=== PATIENT | female | born 1945 | race Caucasian/White ===

== ENCOUNTER 2016-09-16 12:48 | Inpatient (IN) | payer OTHER ==
[~2016-09-16] VITALS: Ht 160 cm; Wt 99.9 kg
[2016-09-16] VITALS (7 sets, daily range): BP systolic 83–145; BP diastolic 59–80
[~2016-09-16 12:48] MED LIST: ACET-654 PO; ALBU83IN INH; AMLO10TA2 PO; ASPI1TAB PO; ATOR1TAB19 PO; BREO1INH INH; BUSP10TA PO; CARV3.12 PO; CARV6.25 PO; CLOTR1CR TOP; FOLI1TAB2 PO; HYDR-3713 PO; HYDR25TAB PO; INCR1INH INH; LORA-376 PO; LOSA100T36 PO; MAG400TA PO; METF1000 PO; NYST10PW TOP; PANT40TA2 PO; PRED10TA PO; SERT-138 PO; SPIR25TA2 PO; VITA100066 PO; VITMTA PO
[2016-09-16] MEDS ORDERED: GLUCOSE 4 GM CHEW TABLET PO PRN (15:45)
[2016-09-16] MEDS ORDERED: GLUCAGON FOR INJ 1 MG VIAL (J1610) SC PRN (15:45)
[2016-09-16] MEDS ORDERED: NS 1,000 ML IV SCH (15:45)
[2016-09-16] MEDS ORDERED: DEXTROSE 50% 50 ML SYRINGE IV PRN (15:45)
[2016-09-16] MEDS ORDERED: BUSP15TA47 PO (15:53)
[2016-09-16] MEDS ORDERED: CORE3.12 PO (15:57)
[2016-09-16] MEDS ORDERED: TRAZ25TA PO (15:58)
[2016-09-16] MEDS: IPRATROPIUM 0.5MG/ALBUTEROL 2.5MG INH SOL UD 3ML (DUONEB)(J7620) NEB SCH ×3 (16:00→23:20)
[2016-09-16] MEDS ORDERED: VITA100072 PO (16:00)
[2016-09-16] MEDS ORDERED: LEXA1TAB PO (16:00)
[2016-09-16] MEDS ORDERED: TUMS500C PO (16:05)
[2016-09-16] MEDS ORDERED: IPRASOL4 INH (16:05)
[2016-09-16] MEDS ORDERED: TRAM50TA2 PO (16:05)
[2016-09-16] MEDS ORDERED: ALBU17IN INH (16:05)
[2016-09-16 16:09] LABS: MEAN CORPUSCULAR HGB CONC 31.9 g/dl (32.0-36.5); MEAN CORPUSCULAR VOLUME 100.4 fl (80.0-96.0); RED CELL DISTRIBUTION WIDTH 14.1 % (11.5-14.5); WHITE BLOOD COUNT 9.7 K/mm3 (4.0-10.0)
[2016-09-16 16:13] LABS: ABG HCO3 25.5 MEQ/L (22.0-26.0); ABG PARTIAL PRESSURE CO2 56.6 mmHg (35.0-45.0); ABG PARTIAL PRESSURE O2 93.1 mmHg (75.0-100.0); ABG STANDARD HCO3 22.8 MEQ/L (22.0-26.0); ABG TOTAL CO2 27.2 MEQ/L (23.0-31.0); ABG pH (ARTERIAL) 7.271 UNITS (7.350-7.450)
[2016-09-16] MEDS ORDERED: ZOFR4TAB3 PO (16:13)
[2016-09-16] MEDS ORDERED: LOVE1INJ2 SC (16:13)
[2016-09-16] MEDS ORDERED: [UNRECOGNIZED DRUG - CODE] IV (16:13)
[2016-09-16 16:27] LABS: ALBUMIN 2.7 GM/DL (3.2-5.2); ALBUMIN/GLOBULIN RATIO 0.93 (1.00-1.93); BILIRUBIN,TOTAL 0.2 MG/DL (0.2-1.0); CREATININE FOR GFR 4.91 MG/DL (0.55-1.02); GLOMERULAR FILTRATION RATE 9.3 (>45); PHOSPHORUS LEVEL 6.5 MG/DL (2.5-4.9); POTASSIUM SERUM 4.7 MEQ/L (3.5-5.1); TOTAL PROTEIN 5.6 GM/DL (6.4-8.2)
[2016-09-16] MEDS ORDERED: INSUHUMDS SC (16:39)
[2016-09-16] MEDS ORDERED: METR1INJ2 IV (16:44)
[2016-09-16] MEDS ORDERED: HEPA50VL SC (16:44)
[2016-09-16] MEDS ORDERED: FURO40SY IV (16:44)
[2016-09-16] MEDS ORDERED: TRIA1CR TOP (17:19)
[2016-09-16] MEDS ORDERED: CLOT1CRE6 TOP (17:19)
[2016-09-16] MEDS ORDERED: GLIP5TAB15 PO (17:21)
[2016-09-16] MEDS ORDERED: HumaLOG INSULIN (NovoLOG) PER UNIT SC SCH ×2 (17:30→18:00)
[2016-09-16] MEDS ORDERED: LIDOCAINE 1% MDV 20ML VIAL As Ordered ONE (17:39)
--- NOTE | 2016-09-16 18:17 | REP ---
Clinical: Central line placement. Comparison: 04/07/2016. Findings: Left subclavian catheter with tip in the SVC. Mediastinum and cardiac silhouette stable. Lung wright demonstrate chronic interstitial changes without acute consolidation, effusion, or pneumothorax. Skeletal structures intact. Impression: Chronic stable changes suggested. Left subclavian catheter with tip in the SVC. Signed by Armando Bustos MD 09/16/2016 06:09 P
--- NOTE | 2016-09-16 19:34 | CR ---
DATE OF CONSULTATION: 09/16/2016 REASON FOR CONSULTATION: Acute renal failure in this morbidly obese lady who is admitted to intensive care unit with shortness of breath. HISTORY OF PRESENT ILLNESS: Mrs. Reno is a 71-year-old morbidly obese female who was transferred to intensive care unit at [facility] from [facility]. She was initially admitted on September 14 to [facility] with nausea and vomiting. She was felt to have diverticulitis on her CT scan. She has been treated with IV antibiotics. Her creatinine was 3.6 according to her admission history and physical on the day of admission. Due to her chronic shortness of breath with COPD, IV fluids were withheld and her creatinine increased to 5.7 today. She is transferred to intensive care unit at [facility] for further management in view of her respiratory insufficiency and acute renal failure. Dr. Schmidt requested nephrology managing consultant. The patient is seen this afternoon on her bedside. PAST MEDICAL HISTORY: Significant for 1. Morbid obesity. 2. Advanced COPD with CO2 retention. 3. History of pulmonary hypertension. 4. History of systemic hypertension. 5. History of depression and anxiety. 6. Hyperlipidemia. 7. Obstructive sleep apnea, noncompliant or intolerant of his C-PAP. 8. history of gastroesophageal reflux disease. 9. History of osteoarthritis. 10. Vitamin D deficiency. PAST SURGICAL HISTORY : Significant for 1. Appendectomy. 2. Tubal ligation. 3. Ovarian cyst removal. PERSONAL AND SOCIAL HISTORY: The patient has history of chronic smoking, about one pack of cigarettes per day. She does not use any recreational drugs and denies any alcohol use. She is retired due to disability. FAMILY HISTORY: There is no family history for end-stage renal disease. Father had prostate cancer and diabetes. Mother had hypertension. Daughter of cardiac arrhythmia at age 29. One of her half brothers had heart disease. Half sister had Lupus. HOME MEDICATIONS: She has a long list of home medications which include - aspirin 81 mg daily - multivitamin daily - albuterol nebulizers - buspirone 15 mg twice a day - Coreg 3.125 mg twice a day - tramadol 50 mg every 6 hours as needed pain - trazodone 50 mg at bedtime - omeprazole 20 mg daily - Lipitor 10 mg daily - vitamin D 1000 units daily - calcium carbonate 500 mg as needed for heartburn - Lexapro 10 mg daily - clotrimazole 1% cream topically twice a day as needed rash - budesonide/formoterol inhaler 1 puff twice a day CURRENT MEDICATIONS: In the hospital include - Protonix 40 mg daily - Lexapro 10 mg daily - heparin 5000 units every 8 hours - Zosyn 2.25 grams every 12 hours - Coreg 3.125 mg twice a day - BuSpar 15 mg twice a day - DuoNebs 3 mL every 4 hours as needed for dyspnea - Tylenol as needed REVIEW OF SYSTEMS Currently the patient is using BiPap. She is able to talk through the mask. She denies any fever or chills. HEAD AND NECK: is negative for headache. EARS, NOSE AND THROAT: are unremarkable. CARDIOVASCULAR SYSTEM: is negative for chest pain. She does have history of pulmonary hypertension and a CVP has been just check today and it is 10. RESPIRATORY SYSTEM: is significant for advanced COPD and obstructive sleep apnea. GI SYSTEM: is significant for nausea, vomiting and abdominal pain. She had decreased oral intake for several days. SYSTEM: is significant but decreased urine output. There is no history of dysuria or hematuria. There is no history of kidney stones. PSYCHOSOCIAL SYSTEM: is significant for depression and anxiety. MUSCULOSKELETAL SYSTEM: is significant for morbid obesity. NEUROLOGICAL SYSTEM: is significant for prior lacunar coronary infarcts. HEMATOLOGICAL SYSTEM: is negative for chronic anticoagulation. SKIN: is negative for rash or ulcers. Other systems reviewed and are unremarkable. PHYSICAL EXAMINATION: This is a morbidly obese female lying in the bed with head elevated at about 45 degrees. She is currently on BiPap. Temperature is 98.6 degrees Fahrenheit, heart rate 80 per minute and respiratory rate 24 per minute. Blood pressure 128/60 mmHg while earlier it was 83/59 mmHg and oxygen saturation and 91% on BiPap with 40% O2. HEENT: Head is atraumatic. Pupils are equal and reactive to light and sclera is anicteric. Oral mucosa is difficult to be examined while she is on the BiPap. NECK: Neck veins does not seem to be abnormally distended. Her CVP is 10. She just had a left subclavian central line placed by Dr. Fountain. Neck is supple and there is no thyroid enlargement. HEART: Heart sounds are distant and lungs have moderate bilateral air entry. ABDOMEN: Abdomen is obese with moderate tenderness in right upper quadrant area. Bowel sounds are normal. EXTREMITIES: Extremities have no cyanosis or clubbing. She does have 1+ edema on both hands. There is no significant edema on her legs. NEURO: Neurologically she is awake and alert. She has no significant focal neurological deficit. LABORATORY DATA: Her blood gas showed a pH of 7.27, pCO2 56.6, pO2 93 and bicarb 22.8. Her WBC count is 9.7, hemoglobin 10.3 and hematocrit 32.2. Sodium 139 and potassium 4.7. CO2 33 and chloride 98. BUN is 55 and creatinine 4.91 on repeat chemistry here at [facility]. Earlier her labs from [facility] today showed a creatinine of about 5.7. On admission her BUN was 39 and creatinine 3.63. IMAGING: Chest x-ray showed chronic fibrotic changes and interstitial changes. There is no acute consolidation or significant effusion. PROBLEMS: 1. Acute renal failure without any significant underlying chronic kidney disease. During her prior hospitalization here back in April 2016 her creatinine was 0.7 mg. Acute renal failure is most likely related to volume depletion and possible diverticulitis. Her CVP is 10. While she does have history of pulmonary hypertension, obstructive sleep apnea and one would expect her CVP to be about 12 or 13. She does not have any significant peripheral edema and some edema on her hands is most likely related to intravenous medications given in other hospital. At present she is receiving normal saline and 150 per hour in view of hypotension. I would suggest to continue IV fluid and probably cut down the rate to 100 per hour as her blood pressure has improved. She does have some urine output. Will get a urinalysis to rule out any possibility of significant proteinuria. Kidney function seems to be improving and will be monitored on a daily basis. At this point there is no emergent indication for dialysis. Once she is hemodynamically stable her kidney function is likely to improve as she does not seem to have any compelling evidence of sepsis. 2. Hyperphosphatemia. Most likely related to acute kidney injury. It is likely to improve as her urine output and increases. I would avoid phosphate binders at this point and will monitor her for next 24 hours. 3. Anemia most likely related to chronic disease and recurrent hospitalizations. There is no indication for a transfusion at this point. We will monitor as her anemia is likely to worsen when she gets hydrated. 4. Hypotension. Probably related to dehydration and ongoing infection. She does have tenderness in her right upper quadrant. Should her condition not improve in the next [address] scan of abdomen and pelvis could be repeated. She already had a CT scan of abdomen and pelvis done at [facility] one on September 13 and September 15. There was no significant abnormality other than mild sigmoid diverticulitis. 5. Acidosis. She mostly has respiratory acidosis related to her COPD and CO2 retention. She is responding to BiPap and is tolerating it reasonably well. There is no indication for bicarbonate infusion at this point. I thank you for involving me in the care of Ms. Reno. I will follow her along with you.
[2016-09-16] MEDS: PIPERACILLIN/TAZOBACTAM SOD 2.25 GM in D5W MINI-BAG PLUS 50 ML IV SCH (20:57)
[2016-09-16] MEDS: busPIRone 5 MG TAB PO SCH (20:57)
[2016-09-16] MEDS: CARVedilol 3.125 MG TAB PO SCH (20:58)
[2016-09-16] MEDS: HEPARIN SOD (PORCINE) 5000 UNITS/ML VIAL SC SCH (21:04)
[2016-09-16] MEDS ORDERED: DIGOXIN INJ 0.5 MG/2 ML AMP (J1160) IV STA (21:40)
[2016-09-16] MEDS: NS 1,000 ML IV SCH (22:20)
[2016-09-17] VITALS (13 sets, daily range): BP systolic 125–170; BP diastolic 49–80; O2SAT 92–93
[2016-09-17] MEDS: IPRATROPIUM 0.5MG/ALBUTEROL 2.5MG INH SOL UD 3ML (DUONEB)(J7620) NEB SCH ×6 (03:14→23:27)
[2016-09-17 04:15] LABS: BASO % 0.2 % (0.0-1.0); EOS # 0.3 K/mm3 (0.0-0.50); EOS % 2.8 % (0.0-3.0); LARGE UNSTAINED CELL # 0.1 K/mm3 (0.0-0.4); LARGE UNSTAINED CELL % 0.9 % (0.0-4.0); LYMPH # 0.5 K/mm3 (1.5-4.5); LYMPH % 5.1 % (24.0-44.0); MEAN CORPUSCULAR HEMOGLOBIN 31.2 pg (27.0-33.0); MEAN CORPUSCULAR HGB CONC 32.3 g/dl (32.0-36.5); MEAN CORPUSCULAR VOLUME 96.6 fl (80.0-96.0); MONO # 0.5 K/mm3 (0.0-0.8); MONO % 5.2 % (0.0-5.0); NEUTROPHILS # 8.2 K/mm3 (1.8-7.7); NEUTROPHILS % 85.9 % (36.0-66.0); PLATELET COUNT, AUTOMATED 233 k/mm3 (150-450); RED CELL DISTRIBUTION WIDTH 13.9 % (11.5-14.5); WHITE BLOOD COUNT 9.5 K/mm3 (4.0-10.0)
[2016-09-17 04:38] LABS: ALBUMIN 2.5 GM/DL (3.2-5.2); ALBUMIN/GLOBULIN RATIO 0.96 (1.00-1.93); BILIRUBIN,TOTAL 0.2 MG/DL (0.2-1.0); CALCIUM LEVEL 7.5 MG/DL (8.8-10.2); CREATININE FOR GFR 3.59 MG/DL (0.55-1.02); GLOMERULAR FILTRATION RATE 13.4 (>45); TOTAL PROTEIN 5.1 GM/DL (6.4-8.2)
[2016-09-17 04:54] LABS: PHOSPHORUS LEVEL 4.3 MG/DL (2.5-4.9)
[2016-09-17] MEDS: HEPARIN SOD (PORCINE) 5000 UNITS/ML VIAL SC SCH ×3 (05:00→21:44)
[2016-09-17] MEDS: HumaLOG INSULIN (NovoLOG) PER UNIT SC SCH ×4 (05:00→17:32)
--- NOTE | 2016-09-17 08:20 | HPE ---
DATE OF ADMISSION: 09/16/2016 CRITICAL CARE ADMISSION NOTE Start time: 1520 hours. Stop time: 1612 hours. I attended Yeimi Reno soon after her arrival here in transfer from [facility]. In essence, this is a 71-year-old female with nearly end-stage obstructive lung disease and chronic hypoxemic and hypercapnic respiratory failure who, since her last admission here at [facility], has had at least four or five admissions to either [facility] or [facility]. I am told by Dr. Calhoun in our conversation at the time of transfer that twice she was actually intubated. She was just discharged from [facility] on 09/10/2016, for exacerbation of her underlying lung disease. She re-presented on 09/13/2016, complaining of abdominal pain, nausea, and vomiting. She was seen in the emergency room (ER). CT scan done without contrast suggested diverticulitis and she was started on Fortaz and Flagyl. Repeat CT scan on 09/15/2016 looked improved. Initially she presented with a creatinine of 3.5, normally her creatinine is 0.6. Had a lactate of 4.2 that cleared over 48 hours. She initially had a significant hyperkalemia and was treated with IV fluids and Kayexalate. This morning she was found to be lethargic. Creatinine up to 5.7. Blood gas at the time showed a pH of 7.1 with a pCO2 of 94. She was given IV Lasix and started on noninvasive support. Her mental status greatly improved. She wishes to be a DO NOT RESUSCITATE except for a possible trial of intubation. Given the complication of her renal failure on top of her respiratory status, she was transferred here. On arrival, she was placed on noninvasive support. She is awake, alert, and appropriate. She answers all questions. Currently on the noninvasive mask. ALLERGIES: Listed as none. MEDICATIONS: At the time of transfer: - Tylenol - baby aspirin - multivitamins - DuoNebs - BuSpar 15 mg twice a day - Coreg 3.125 mg twice a day - tramadol 50 mg by mouth every 6 hours - trazodone 25 mg nightly - omeprazole 20 mg daily - Lipitor 10 mg daily - calcium carbonate - cyanocobalamin 1000 mcg daily - Lexapro 10 mg daily - Pulmicort Respules - formoterol via nebulizer twice a day - ceftazidime 1 gram IV every 24 hours - Breo Ellipta 100 mcg inhaler one puff daily - heparin 5000 units twice a day - Flagyl 500 mg three times a day HOME MEDICATIONS: Included: - losartan 50 mg nightly - spironolactone 50 mg daily These two have been held since her admission PAST MEDICAL HISTORY: Significant for: 1. Known advanced, essentially end-stage, obstructive lung disease. 2. Previous CVA. 3. Hypertension. 4. Morbid obesity. 5. Anxiety and depression. 6. Hyperlipidemia. 7. Underlying obstructive sleep apnea syndrome, previously intolerant of continuous positive airway pressure (CPAP). 8. Gastroesophageal reflux disease. 9. Osteoarthritis. 10. Suspected pulmonary hypertension. SOCIAL HISTORY: Lives at home with , who unfortunately still smokes. Continued to smoke until several weeks ago. FAMILY HISTORY: Noncontributory. REVIEW OF SYSTEMS: As per the history of present illness (HPI). However: CONSTITUTIONAL: Significant for a low grade fever on admission at [facility]. HEENT: Unremarkable for double or blurry vision. PULMONARY: As per HPI. CARDIAC: Negative for angina. GASTROINTESTINAL (GI): Significant for her recent presentation. GENITOURINARY (): Unremarkable for previous renal failure. MUSCULOSKELETAL: Significant for chronic back pain. ALLERGIC/IMMUNOLOGIC: Unremarkable. PSYCHIATRIC: Significant for anxiety and depression. DERMATOLOGIC: Unremarkable for any new rashes. ENDOCRINE: Unremarkable for any hypothyroidism. Correction of some glucose control issues. PHYSICAL EXAMINATION: At the time of admission here shows an elderly female who appears her stated age , noninvasive mask in place. Vital signs show heart rate between 90-100 with sinus mechanism, blood pressure 110 systolic, respiratory rate 18-22 without accessory muscle use, and she is currently afebrile. HEENT: Otherwise normocephalic and atraumatic. Pupils do react. Jugular venous system difficult to assess with the noninvasive mask in place. Membranes appear reasonably moist. Chest shows diminished but symmetric expansion. Percussion reasonable. Tactile fremitus diminished but palpable. No focal wheeze, rhonchus, crackles, or rubs. Cardiac exam is distant but regular. Peripheral pulses diminished throughout and there is at least 2+ to 3+ pitting lower extremity edema. Abdomen obese, soft, there are active bowel sounds. Maybe some minimal tenderness with very deep palpation, but no rebound. Extremities show no cyanosis or clubbing. Neurologically she is awake, alert, and appropriate. Psychiatrically normal mood and affect at this point. Repeat laboratories done here show a white blood cell count of 9.7, hemoglobin 10.3, platelet count 236,000. Chemistries are pending as is a repeat arterial blood gas. The most pressing problems requiring my immediate presence at the bedside: 1. Acute on chronic respiratory failure with hypoxemic and hypercapnic. 2. Advanced obstructive lung disease. 3. New onset renal failure. 4. Question of diverticulitis. At this point, we will continue her bilevel positive airway pressure (BiPAP). She is on nebulized bronchodilators. At least at this point, she does not appear to have a significant exacerbation of her underlying lung disease so I will try to avoid supplemental steroids. Regarding her presentation with gastrointestinal (GI) symptoms, we will continue with broad-spectrum antimicrobials and I will use Zosyn, dose adjusted for her renal failure. I have asked nephrology to become involved in her care. We will hold any renal offending agents. I believe it not unreasonable to continue her antidepressants. We will use Tylenol instead of tramadol for her at this point. We will obtain an echocardiogram to assess her left ventricular (LV) function. Her CT scan at [facility] did suggest one small nonobstructing stone at 2 mm in the right kidney. She wishes to be a DO NOT RESUSCITATE except regarding intubation status and, if it comes to that, has requested a trial of intubation. Hopefully we can avoid that for her. Ulcer and deep venous thrombosis (DVT) prophylaxes are in place. At this point she is quite critically ill. There is a high likelihood she may have further compromise. No family currently available. Will proceed as outlined above. I left the bed at 1612 hours. 52 minutes of critical care time delivered at the bedside not including procedures. JACKIE
[2016-09-17] MEDS: PANTOPRAZOLE 40MG INJ (PROTONIX) (C9113) IV SCH (09:07)
[2016-09-17] MEDS: PIPERACILLIN/TAZOBACTAM SOD 2.25 GM in D5W MINI-BAG PLUS 50 ML IV SCH ×2 (09:07→21:44)
[2016-09-17] MEDS: busPIRone 5 MG TAB PO SCH ×2 (09:07→21:43)
[2016-09-17] MEDS: ESCITALOPRAM OXALATE 10 MG TAB (LEXAPRO) PO SCH (09:08)
[2016-09-17] MEDS: CARVedilol 3.125 MG TAB PO SCH ×2 (09:08→21:43)
[2016-09-17 09:17] LABS: ABG BASE EXCESS 6.6 (-2.0-2.0); ABG HCO3 34.2 MEQ/L (22.0-26.0); ABG PARTIAL PRESSURE O2 81.6 mmHg (75.0-100.0); ABG STANDARD HCO3 30.5 MEQ/L (22.0-26.0); ABG TOTAL CO2 36.3 MEQ/L (23.0-31.0); ABG pH (ARTERIAL) 7.331 UNITS (7.350-7.450)
[2016-09-17 09:20] LABS: ABG PARTIAL PRESSURE CO2 66.3 mmHg (35.0-45.0)
--- NOTE | 2016-09-17 09:46 | CCN ---
DATE: 09/17/2016 START TIME: 835 STOP TIME: 911 I again attended Yeimi Reno. She remains here in the intensive care unit on noninvasive support for her combined hypoxemic and hypercapnic respiratory failure complicated by renal failure. Through the night, she had one episode of atrial fibrillation with rapid ventricular response. This responded very nicely to one dose of IV digoxin. This morning, she is in sinus mechanism with occasional PVCs. Blood pressure varies from the 130s to 140s systolic. Heart rate generally in the 80s. CVP this morning measured at 7. Inputs and outputs from admission to midnight last night: 1150 mL in with 1875 mL out. From midnight, 400 mL in with 650 mL out. Most recent laboratories show white blood cell count of 9.5, hemoglobin 10.0, platelet count 233,000, 85.69% segmented neutrophils, no bands. Sodium 144, potassium 4.0, chloride 102, CO2 36, BUN 49, creatinine 3.59 down from 4.9 yesterday. Glucose 117. Albumin 2.5. Blood gas this morning is pending. Repeat blood gas done yesterday after an hour on noninvasive on arrival here showed her pH was improved to 7.27 and a pCO2 down to 56.6 from 92 at [place]. pO2 was 93 on the settings of inspiratory 14, expiratory 10. FiO2 of 40%. On exam, she is awake, alert, appropriate. She really dislikes wearing the noninvasive at this point. Pupils reactive, sclera clear. Trachea is in the midline. Jugular venous system difficult to assess in view of the BiPAP mask. Chest shows diminished but symmetric expansion. Breath sound intensity diminished but lung wright are generally clear. Cardiac exam: Distant generally regular with ectopy. Peripheral pulses are diminished. Upper extremities do show significant edema. Lower extremities with trace edema at best. Abdomen is obese, soft with active bowel sounds. There is some minimal tenderness in the right lower quadrant. No rebound. Neurologically, she is awake, oriented and appropriate. Psych: Generally normal mood and affect. The most pressing problems requiring my presence at the bedside: Acute on chronic hypoxemic and hypercapnic respiratory failure. Renal failure. History of hypertension. Long stranding tobacco abuse. Essentially end stage obstructive lung disease. One episode of atrial fibrillation with rapid ventricular rate (RVR). At this point, we will continue her current level of IV hydration. We did back off her fluids somewhat when her CVP hit 19 but I wonder about the validity of that given that this morning it is 7. I appreciate nephrology's input as well as thoracic surgery for CVP line placement. We will repeat a blood gas this morning. If she is near the baseline, I will allow her some time off the noninvasive where at least she can get some oral intake. I will continue her current antimicrobials in view of the question of diverticulitis. She is still mildly tender but her white count is better. She did have a T-max yesterday of 100.4 degrees. Ulcer and deep venous thrombosis (DVT) prophylaxis are in place. We will proceed as outlined above. She remains with multiorgan dysfunction and her prognosis for further compromise remains quite guarded at best. I left the bedside at 0912 hours. 36 minutes of critical care time delivered at the bedside, not including procedures.
[2016-09-17] MEDS: ACETAMINOPHEN TAB 650MG DOSE (2X325MG) PO PRN ×2 (11:36→17:25)
[2016-09-17] MEDS: NS 1,000 ML IV SCH (14:24)
--- NOTE | 2016-09-17 16:47 | IPN ---
DATE: 09/17/2016 SUBJECTIVE: This is a 71-year-old female who was seen and examined at bedside. Overnight, she went into atrial fibrillation with RVR and received a one time dose of digoxin which converted her back to sinus rhythm. Her central venous pressure (CVP) initially during the night was 10, later it increased to 19 but this morning with measure 7. She remains on IV fluids but dose was decreased due to elevated CVP, currently at 50 mL per hour. Currently there is plan for trial off BiPap. No chest pain or shortness of breath, nausea, vomiting abdominal pain. OBJECTIVE: VITAL SIGNS: Blood pressure 170/74, heart rate 87, temperature 99.1, respiratory rate 18, pulse oximetry 94% on 40 FiO2. Intake and output last 24 hours 1150 and 1875 with a negativity of 724 in last 24 hours. Weight is 99.7 kg today, yesterday it was 101 documented. GENERAL: Patient is lying in intensive care unit (ICU) bed comfortable. No acute distress. Answers questions by nodding and shaking of her head. HEENT: BiPAP is in place. Dry oral mucosa. NECK: Large. Trachea midline. Could not appreciate jugular venous distention (JVD) secondary to large neck size and BiPAP mask. CHEST: No accessory muscle use. Breath sounds are diminished bilateral lung wright. HEART: Distant sounding. Could not appreciate murmurs, rubs, or gallops. ABDOMEN: Soft and obese but nontender, nondistended. Bowel sounds diminished, distant but present. EXTREMITIES: There is trace edema bilateral lower extremities and 2+ pitting edema bilateral upper extremity. Pedal pulses are diminished but present. NEUROLOGIC: Alert, awake, oriented times three. PSYCHIATRIC: Cooperative, normal affect. MEDICATIONS: Medications are reviewed. No new changes aside from Digoxin given one time last night. IMPRESSION/PLAN: Ms. Reno is a 71-year-old female with a history of obstructive sleep apnea, not compliant with continuous positive airway pressure (CPAP), advanced chronic obstructive pulmonary disease (COPD) with CO2 retention , hypertension, vitamin D deficiency, morbid obesity who was transferred from [place] for further management of her respiratory and acute renal failure. 1. Acute renal failure. Her baseline creatinine in April 2016 was normal. There is improvement in her renal function today compared to yesterday. Her renal failure likely is secondary to dehydration and infection from diverticulitis. While she had some trace peripheral edema today, will recommend continuing normal saline at 50 mL per hour as she is currently not taking any by mouth. Compared to yesterday she appears to be making more urine which is very encouraging. Have requested for urinalysis to be sent. Because her renal function is improving no emergent need for dialysis at this time. She is on renal dose Zosyn for her gastrointestinal symptoms. 2. Hyperphosphatemia. Resolved. Likely secondary to renal injury which has now improved because of her increased urine output. 3. Anemia. Her hemoglobin has not significantly changed compared to yesterday. No evidence of bleeding at this time. Continue to monitor without emergent interventions needed at this time. 4. Acute on chronic respiratory failure. Currently being managed by [employer] team. She continues with BiPAP with plan for trial off mask later today. 5. Hypotension. She had one episode of systolic in the 80's yesterday which has since resolved. Will continue gentle IV hydration as she is currently not eating. She is also on her home dose beta-samantha. Her other home antihypertensive and diuretics have been held due to her dehydration on admission. 6. Respiratory acidosis. She is currently on BiPAP by pulmonology team. My preceptor for this patient encounter was Dr. Ravi. The preceptor was physically present in the building during the encounter and was fully available. As needed, all aspects of the patient interview, examination, medical decision making process, and medical care plan development were reviewed and approved by the preceptor. The preceptor is aware and concurs with the plan as stated in the body of this note and will attest to such by his/her cosignature. JACKIE
--- NOTE | 2016-09-17 19:29 | ECHO ---
DATE OF PROCEDURE: 09/17/2016 REFERRING PHYSICIAN: Edy Schmidt MD INDICATION: Edema. HEIGHT: 160 cm WEIGHT: 101 kg. DIMENSIONS: IVS: 1.2 LV: 3.6 LVPW: 1.2 LA: 4.0 Aorta: 2.8 FINDINGS: The study is of fair technical quality corresponding to patient's body habitus. Left ventricle is of normal size and hyperdynamic contractility with estimated left ventricular ejection fraction (LVEF) 70-75%. No segmental wall motion abnormalities are appreciated. Right ventricle does not appear enlarged. Both atria are at least mildly enlarged. Aortic valve is sclerotic, but mobility seems to be grossly preserved. There are minimal degenerative abnormalities of mitral valve with mitral annular calcifications at the base of posterior mitral leaflet. Tricuspid valve appears normal. Pulmonic valve was not seen. No pericardial effusion is noted. Inferior vena cava was not well visualized. Aortic root is normal. Aortic arch and abdominal aorta was not well seen. Doppler interrogation reveals no aortic insufficiency and trivial stenosis with mean gradient 13 mmHg. There is trace mitral insufficiency and mild tricuspid insufficiency. Calculated pulmonary artery pressure is at least in 50s, which would correspond to at least moderate pulmonary hypertension. Pulmonic valve is functionally competent. Mitral inflow pattern and tissue Doppler imaging of mitral annulus reveal grade 1 diastolic dysfunction (E velocity is 90.3, E prime septal 7.5 and E prime lateral 9.2 cm/s). CONCLUSIONS: 1. Study is of fair technical quality. 2. Normal left ventricle (LV) size with hyperdynamic LV systolic function and grade 1 diastolic dysfunction. 3. No hemodynamically significant valvular disease. 4. Unable to reliably estimate central venous pressure but at least moderate pulmonary hypertension. COMMENT: Subacute bacterial endocarditis (SBE) prophylaxis is not recommended. Overall study most consistent with hypertensive heart disease.
[2016-09-18] VITALS (11 sets, daily range): BP systolic 120–180; BP diastolic 65–91; O2SAT 91–94
[2016-09-18] MEDS: ACETAMINOPHEN TAB 650MG DOSE (2X325MG) PO PRN ×2 (02:35→22:26)
[2016-09-18] MEDS: IPRATROPIUM 0.5MG/ALBUTEROL 2.5MG INH SOL UD 3ML (DUONEB)(J7620) NEB SCH ×5 (03:20→20:03)
[2016-09-18] MEDS: HumaLOG INSULIN (NovoLOG) PER UNIT SC SCH ×4 (05:29→17:01)
[2016-09-18] MEDS: HEPARIN SOD (PORCINE) 5000 UNITS/ML VIAL SC SCH ×3 (05:38→21:21)
[2016-09-18 05:47] LABS: BASO % 0.3 % (0.0-1.0); EOS # 0.4 K/mm3 (0.0-0.50); EOS % 4.2 % (0.0-3.0); LARGE UNSTAINED CELL # 0.1 K/mm3 (0.0-0.4); LARGE UNSTAINED CELL % 1.2 % (0.0-4.0); LYMPH # 0.9 K/mm3 (1.5-4.5); LYMPH % 9.5 % (24.0-44.0); MEAN CORPUSCULAR HEMOGLOBIN 30.9 pg (27.0-33.0); MEAN CORPUSCULAR HGB CONC 32.1 g/dl (32.0-36.5); MEAN CORPUSCULAR VOLUME 96.3 fl (80.0-96.0); MONO # 0.6 K/mm3 (0.0-0.8); MONO % 6.5 % (0.0-5.0); NEUTROPHILS # 6.8 K/mm3 (1.8-7.7); NEUTROPHILS % 78.3 % (36.0-66.0); PLATELET COUNT, AUTOMATED 248 k/mm3 (150-450); RED CELL DISTRIBUTION WIDTH 14.2 % (11.5-14.5); WHITE BLOOD COUNT 8.6 K/mm3 (4.0-10.0)
[2016-09-18 05:55] LABS: ALBUMIN 2.4 GM/DL (3.2-5.2); ALBUMIN/GLOBULIN RATIO 0.71 (1.00-1.93); BILIRUBIN,TOTAL 0.2 MG/DL (0.2-1.0); CALCIUM LEVEL 8.1 MG/DL (8.8-10.2); CREATININE FOR GFR 1.53 MG/DL (0.55-1.02); GLOMERULAR FILTRATION RATE 35.8 (>45); POTASSIUM SERUM 3.4 MEQ/L (3.5-5.1); TOTAL PROTEIN 5.8 GM/DL (6.4-8.2)
--- NOTE | 2016-09-18 07:00 | ECGEPIP ---
Stationary ECG Study [facility] Test Date: 2016-09-16 Pat Name: BOB GREEN Department: Room: [place] [address] Gender: F Protection Officer: KATIE : 1945 Requested By: NOREEN TERAN Order Number: [id number] Reading MD: John Olvera Measurements Intervals Steele Rate: 181 P: 86 CT: 178 QRS: 58 QRSD: 106 T: 81 QT: 311 QTc: 540 Interpretive Statements Atrial fibrillation with rapid ventricular response Nonspecific ST-T wave abnormalities Compared to prior tracing of 04/09/2016, atrial fibrillation is new Electronically Signed On 09-18-2016 7:00:20 EDT by John Olvera
[2016-09-18] MEDS: BUDESONIDE 0.5 MG/2 ML INHALATION SUSPENSION INH SCH ×2 (08:00→20:03)
[2016-09-18] MEDS: PANTOPRAZOLE 40MG INJ (PROTONIX) (C9113) IV SCH (08:44)
[2016-09-18] MEDS: ESCITALOPRAM OXALATE 10 MG TAB (LEXAPRO) PO SCH (08:44)
[2016-09-18] MEDS: busPIRone 5 MG TAB PO SCH ×2 (08:44→21:20)
[2016-09-18] MEDS: CARVedilol 3.125 MG TAB PO SCH ×2 (08:45→21:21)
[2016-09-18] MEDS: PIPERACILLIN/TAZOBACTAM SOD 2.25 GM in D5W MINI-BAG PLUS 50 ML IV SCH (08:45)
[2016-09-18 09:15] LABS: ABG BASE EXCESS 8.9 (-2.0-2.0); ABG HCO3 36.1 MEQ/L (22.0-26.0); ABG PARTIAL PRESSURE O2 78.9 mmHg (75.0-100.0); ABG STANDARD HCO3 32.7 MEQ/L (22.0-26.0); ABG TOTAL CO2 38.1 MEQ/L (23.0-31.0); ABG pH (ARTERIAL) 7.365 UNITS (7.350-7.450)
[2016-09-18 09:17] LABS: ABG PARTIAL PRESSURE CO2 64.6 mmHg (35.0-45.0)
[2016-09-18] MEDS ORDERED: POTASSIUM CHLORIDE 10 MEQ SR TABLET PO ONE (10:00)
--- NOTE | 2016-09-18 10:03 | CCN ---
DATE: 09/18/2016 I again attended Yeimi Reno. She has been able to be on and off noninvasive support. She has currently been off for about 2 hours and blood gas has just been drawn. T-max overnight 98.1, blood pressure 125 to 170 systolic. Heart rate in the 80s, respiratory rate 18 to 24 without accessory muscle use. Currently, she is saturating 92 to 94% on 3 liters nasal cannula. Most recent laboratories show a white blood cell count of 8.6, hemoglobin 9.7, platelet count 248,000, 78% segmented neutrophils, no bands. Sodium 144, potassium of 3.4, chloride 101, CO2 39, BUN 32, creatinine down to 1.53. Albumin 2.4. Blood gas just drawn on her with 3 liters nasal cannula shows a pH 7.365, pCO2 64.6 and a pO2 of 78.9. On exam, she is awake, alert and appropriate. She denies any new complaints. She says her abdomen feels much better. Pupils are reactive, sclerae clear. Trachea is midline. Mucous membranes of nose and mouth are moist. Chest shows diminished but symmetric expansion. Percussion is reasonable. Tactile fremitus is diminished throughout. There is some faint end expiratory wheeze with forced maneuver that localized mainly over the upper airway. Cardiac is distant but regular. Peripheral pulses are palpable. There is trace dependent edema. Abdomen morbidly obese, soft with active bowel sounds. No obvious tenderness. Extremities show continued edema and bruising of the upper extremities consistent with the recent hospitalization. Some trace edema of the lower extremities. Neurologically, she is awake, alert, and appropriate. Psych: With normal mood and affect. Input and output over the last 24 hours ending at midnight last night 2370 mL in with 2385 mL out. Most pressing problems requiring my presence at the bedside: 1. Acute on chronic respiratory failure both hypoxemic and hypercapnic. 2. Renal failure. 3. Underlying advanced obstructive lung disease. 4. Diverticulitis. 5. Known underlying obstructive sleep apnea with noncompliance with pressure therapy. At this point, we will advance her diet. We will use noninvasive port only at night. I will adjust her Zosyn for her improved renal function. I will discuss with nephrology the possibility of re-adding some of her antihypertensives but care must be taken in view of her recent issues with renal function. I had a long discussion with her this morning regarding code status. At this point, she absolutely hates the noninvasive mask. Certainly, if she wishes trial of intubation in the future, she will be facing noninvasive support again at some point. Certainly, she also has sleep apnea and should be wearing one at home, but again, remains completely noncompliant with that mode of therapy. She says she hopes she can remain tobacco free when she gets home but given the fact that her still smokes, this may be difficult for her. I will re-add her nebulized budesonide. I discussed with her the fact that she was on formoterol and Breo at home and these medications cannot be taken together. We will adjust her medication list accordingly upon discharge. At this point, will proceed as outlined above. My hopes is that we will be able to proceed out of the ICU hopefully within the next 48 to 72 hours. JACKIE
[2016-09-18] MEDS: K-PHOS NEUTRAL 250MG TABLET (SOD.PHOSPHATE/POT.PHOSPHATE) PO SCH ×2 (10:32→21:19)
--- NOTE | 2016-09-18 12:58 | IPN ---
DATE OF VISIT: 09/18/2016 SUBJECTIVE: This is a 71-year-old female who was seen and examined in the intensive care unit (ICU) room. This morning, she was trialed off the bilateral positive airway pressure (BiPAP). She had difficulty wearing the mask last night. Was only wearing it every 2 hours because it was making her uncomfortable. Because of this, she could not sleep well. No chest pain, shortness of breath, nausea, vomiting, fevers, chills. Does report some loose bowel movements since yesterday. OBJECTIVE: VITAL SIGNS: Blood pressure 159/68, heart rate 72, temperature 98, maximum temperature (Tmax) was 98.4, respiratory rate 18, pulse oximetry 94% on 3 liters nasal cannula. Last night, was on FiO2 35. INTAKE AND OUTPUT: The last 24 hours, 2370 in and 2385, net negative of 15. Since midnight, has 1020 in and 1550 out. Three bowel movements documented since midnight. GENERAL: She is sitting in chair, comfortable. No acute distress. Alert, awake, oriented times three. Cooperative. Morbidly obese appearing. HEENT: Normocephalic, atraumatic. Nasal septum midline. Eyes: Extraocular movement intact. NECK: Large. Could not appreciate jugular venous distention (JVD) secondary to large neck size. CHEST: No accessory muscle use. Breath sounds diminished with occasional crackles bilateral lung bases. Left subclavian catheter is in place. The area is clean and dry. HEART: Distant but regular sounding. Could not appreciate murmurs, rubs, or gallops. ABDOMEN: Obese but nontender, nondistended. Bowel sounds present. No guarding. No rebound. No peritoneal signs. EXTREMITIES: 1+ pitting edema bilateral upper and lower extremity. NEUROLOGICAL: Alert, awake, oriented times three. PSYCHIATRIC: Normal affect. LABORATORY DATA: WBC 8.6, hemoglobin 9.7, hematocrit 30.2, platelets 248. Sodium 144, potassium 3.4, chloride 101, carbon dioxide 39, BUN 32, creatinine 1.53 significantly improved from yesterday at 3.59, glucose 126, calcium 8.1, phosphorus 2, total bilirubin normal, albumin 2.4. ABG this morning: pH 7.35, PCO2 64.6, pO2 78.9. IMPRESSION AND PLAN: Ms. Reno is a 71-year-old female with obstructive sleep apnea (SANDY), noncompliant with continuous positive airway pressure (CPAP), chronic obstructive pulmonary disease (COPD) with CO2 retention, hypertension, morbid obesity presented with acute renal failure. 1. Acute renal failure. This is significantly improved. It is believed to be secondary to dehydration and underlying infection from diverticulitis. Renal function significantly improved with fluid hydration. She is now taking very good by mouth intake and has been switched to BiPAP only at nighttime. She also has some building up of edema of her lower extremity as well. Therefore, we will discontinue her intravenous (IV) hydration due to her improved renal function. 2. Diarrhea. The patient reported loose bowel movements within the last 2 days. We have sent for a Clostridium (C) difficile panel as she is currently on Zosyn for diverticulitis. 3. Hypokalemia. We have given her a one-time dose of potassium chloride 40 mEq. This is likely secondary to diarrhea. 4. Hypophosphatemia. We have added Neutra-Phos with last dose to be given tomorrow morning. This is again likely secondary to diarrhea. 5. Hypertension. She is on her home dose of carvedilol. We have reviewed her home medications, which is rather extensive, at home. At this time, will hold off on restarting her medications but recommend discontinuing her IV fluid for now. 6. Anemia. No evidence of bleeding at this time, and hemoglobin is not significantly decreased. Will monitor for now. Repeat laboratories in the morning. No need for emergent transfusion at this time. My preceptor for this patient encounter was Brian Ravi MD. The preceptor was physically present in the building during the encounter and was fully available. As needed, all aspects of the patient interview, examination, medical decision making process, and medical care plan development were reviewed and approved by the preceptor. The preceptor is aware and concurs with the plan as stated in the body of this note and will attest to such by his/her cosignature. JACKIE
[2016-09-18] MEDS: PIPERACILLIN/TAZOBACTAM SOD 3.375 GM in D5W MINI-BAG PLUS 50 ML IV SCH (16:42)
[2016-09-19] VITALS: BP 166/72
[2016-09-19] MEDS: IPRATROPIUM 0.5MG/ALBUTEROL 2.5MG INH SOL UD 3ML (DUONEB)(J7620) NEB SCH ×7 (00:12→23:57)
[2016-09-19] MEDS: PIPERACILLIN/TAZOBACTAM SOD 3.375 GM in D5W MINI-BAG PLUS 50 ML IV SCH ×2 (02:00→08:09)
[2016-09-19 05:46] LABS: BASO % 0.2 % (0.0-1.0); EOS # 0.3 K/mm3 (0.0-0.50); EOS % 3.5 % (0.0-3.0); LARGE UNSTAINED CELL # 0.1 K/mm3 (0.0-0.4); LARGE UNSTAINED CELL % 1.7 % (0.0-4.0); LYMPH # 1.2 K/mm3 (1.5-4.5); LYMPH % 15.3 % (24.0-44.0); MEAN CORPUSCULAR HEMOGLOBIN 30.2 pg (27.0-33.0); MEAN CORPUSCULAR HGB CONC 31.3 g/dl (32.0-36.5); MEAN CORPUSCULAR VOLUME 96.6 fl (80.0-96.0); MONO # 0.7 K/mm3 (0.0-0.8); MONO % 8.5 % (0.0-5.0); NEUTROPHILS # 5.7 K/mm3 (1.8-7.7); NEUTROPHILS % 70.8 % (36.0-66.0); PLATELET COUNT, AUTOMATED 253 k/mm3 (150-450)
[2016-09-19] MEDS: HEPARIN SOD (PORCINE) 5000 UNITS/ML VIAL SC SCH ×3 (05:53→21:20)
[2016-09-19 06:00] VITALS: BP 180/79
[2016-09-19] MEDS: HumaLOG INSULIN (NovoLOG) PER UNIT SC SCH ×6 (06:00→20:17)
[2016-09-19 06:07] LABS: ALBUMIN 2.5 GM/DL (3.2-5.2); ALBUMIN/GLOBULIN RATIO 0.93 (1.00-1.93); ALKALINE PHOSPHATASE 49 U/L (45-117); ALT/SGPT 13 U/L (12-78); ANION GAP 4 MEQ/L (8-16); AST/SGOT 16 U/L (15-37); BILIRUBIN,TOTAL 0.3 MG/DL (0.2-1.0); BLOOD UREA NITROGEN 17 MG/DL (7-18); CALCIUM LEVEL 7.6 MG/DL (8.8-10.2); CARBON DIOXIDE LEVEL 41 MEQ/L (21-32); CHLORIDE LEVEL 102 MEQ/L (98-107); CHOLESTEROL LEVEL 136 MG/DL (< 200); CREATININE FOR GFR 0.82 MG/DL (0.55-1.02); GLOMERULAR FILTRATION RATE > 60.0 (>45); GLUCOSE, FASTING 129 MG/DL (80-110); POTASSIUM SERUM 3.3 MEQ/L (3.5-5.1); SODIUM LEVEL 147 MEQ/L (136-145); TOTAL PROTEIN 5.2 GM/DL (6.4-8.2); TRIGLYCERIDES LEVEL 190 MG/DL (<150)
[2016-09-19] MEDS ORDERED: LOSARTAN 50 MG TAB PO ONE (07:30)
[2016-09-19 08:00] VITALS: BP 142/94
[2016-09-19] MEDS: BUDESONIDE 0.5 MG/2 ML INHALATION SUSPENSION INH SCH ×2 (08:00→19:22)
[2016-09-19] MEDS: PANTOPRAZOLE 40MG INJ (PROTONIX) (C9113) IV SCH (08:08)
[2016-09-19] MEDS: CARVedilol 3.125 MG TAB PO SCH ×2 (08:08→20:15)
[2016-09-19] MEDS: ESCITALOPRAM OXALATE 10 MG TAB (LEXAPRO) PO SCH (08:08)
[2016-09-19] MEDS: busPIRone 5 MG TAB PO SCH ×2 (08:08→20:16)
[2016-09-19] MEDS: SPIRONOLACTONE 25 MG TAB PO SCH (08:08)
[2016-09-19] MEDS: ACETAMINOPHEN TAB 650MG DOSE (2X325MG) PO PRN ×2 (08:24→20:16)
[2016-09-19] MEDS ORDERED: PANTOPRAZOLE 40MG TAB (PROTONIX) PO ONE (09:00)
[2016-09-19 09:14] LABS: MAGNESIUM LEVEL 1.1 MG/DL (1.8-2.4)
[2016-09-19] MEDS ORDERED: POTASSIUM CHLORIDE 10 MEQ SR TABLET PO ONE (09:45)
[2016-09-19] MEDS: MAG SULF 1GM/100ML (MAG RUN) 1 GM in APPROPRIATE DILUENT 1 EA IV SCH ×3 (09:52→12:01)
--- NOTE | 2016-09-19 11:19 | IPN ---
DATE: 09/19/2016 SUBJECTIVE: This is a 71-year-old female who was seen and examined at bedside. Overnight reported wearing her BiPAP machine. Her antibiotic was changed from Zosyn to Augmentin this morning. Her Sanchez was discontinued yesterday. At this time, she remains off her BiPAP. Continues to report loose bowel movements. No chest pain. Shortness of breath is unchanged. No fevers, chills, nausea, vomiting. Is tolerating her regular diet today. OBJECTIVE: Vital signs: Blood pressure early this morning 180/79, heart rate 77, temperature 98.3, respiration rate 16, pulse ox 91% on 4 liters nasal cannula. Her blood pressure repeat was 142/94. Intake and output over the last 24 hours 2540 and 1750, positive of 765. Weight is 97.3 kg today. General: Patient is sitting in chair comfortable, no acute distress. Alert, awake, oriented times three. Morbidly obese appearing. HENT: Normocephalic, atraumatic. Nasal septum midline. Nose with nasal prong. Eyes: Extraocular movement intact. Neck: Large, difficult to appreciate jugular venous distention (JVD) secondary to large neck size. Trachea appears midline. Chest: Without accessory muscle use. Breath sounds diminished. There is some occasional crackles at the lung bases. Left subclavian catheter is in place. It is clean and dry. Heart: Distant sounding but regular. Difficult to appreciate murmurs, rubs or gallops. Normal S1, S2. Abdomen: Obese, nontender, nondistended. Bowel sounds present. No guarding. No rebound. Extremities: 2+ pitting edema bilateral lower extremity. Neurologic: Alert, awake, oriented times three. Psychiatric: Normal affect. LABORATORY DATA: WBC 8, hemoglobin 9.9, hematocrit 31.6, platelets 253. Sodium 147, potassium 3.3 chloride 102, carbon dioxide 41, BUN 17, creatinine 0.82 improved from yesterday 32 and 1.53. Glucose 129, calcium 7.6, phosphorus 3, magnesium 1.1. Total bilirubin 0.3, AST 16, ALT 13, alkaline phosphatase 49, lactic dehydrogenase 281. Albumin 2.5. Clostridium difficile culture negative. IMPRESSION/PLAN: Ms. Reno is a 71-year-old female with history of obstructive sleep apnea, chronic obstructive pulmonary disease (COPD) with CO2 retention, hypertension, morbid obesity, admitted for dehydration and acute renal failure. 1. Acute renal failure, resolved. Secondary to dehydration and underlying infection. She is now back to her baseline renal function after gentle fluid resuscitation. We discontinued her IV fluid yesterday as her diet was advanced. 2. Diarrhea. Her bowel movements have been less frequent. Her Clostridium difficile stool was checked and was negative. This could be due to her hypoalbuminemia. Continue to monitor. 3. Hypokalemia. Continues to be low from diarrhea. Potassium has been repleted again today. This will also likely improve now that we have restarted her on Aldactone and Losartan. 4. Hypertension. Blood pressure was elevated again overnight. She takes spironolactone 50 mg daily at home and Losartan daily at bedtime. We have given her a one time dose of Losartan 100 mg this morning and have started her on Losartan daily home dose starting tomorrow along with spironolactone 25 mg daily which is half her home dose at home. 5. Hypophosphatemia, resolved. Neutra-phos was started yesterday with last dose given today. 6. Hypomagnesemia. Likely secondary to diarrhea. Magnesium has been repleted. Check levels again tomorrow. 7. Anemia. No evidence of bleeding. Hemoglobin is not significantly decreased. No need for transfusion at this time. My preceptor for this patient encounter was Dr. Ravi. The preceptor was physically present in the building during the encounter and was fully available. As needed, all aspects of the patient interview, examination, medical decision making process, and medical care plan development were reviewed and approved by the preceptor. The preceptor is aware and concurs with the plan as stated in the body of this note and will attest to such by his/her cosignature. JACKIE
[2016-09-19 12:00] VITALS: BP 152/67
[2016-09-19 16:00] VITALS: BP 173/73
[2016-09-19] MEDS ORDERED: PREVNAR 13 VACCINE SYRINGE (CPT CODE:90670) IM ONE (16:00)
[2016-09-19 20:00] VITALS: BP 172/88
[2016-09-19] MEDS: AUGMENTIN 875 MG TAB PO SCH (20:16)
[2016-09-20] VITALS: BP 140/74
[2016-09-20] MEDS: IPRATROPIUM 0.5MG/ALBUTEROL 2.5MG INH SOL UD 3ML (DUONEB)(J7620) NEB SCH ×6 (03:29→23:56)
[2016-09-20 04:00] VITALS: BP 170/84
[2016-09-20] MEDS: HEPARIN SOD (PORCINE) 5000 UNITS/ML VIAL SC SCH ×3 (05:37→21:02)
[2016-09-20 06:03] LABS: BASO % 0.3 % (0.0-1.0); EOS # 0.3 K/mm3 (0.0-0.50); LARGE UNSTAINED CELL # 0.2 K/mm3 (0.0-0.4); LARGE UNSTAINED CELL % 1.5 % (0.0-4.0); LYMPH # 2.2 K/mm3 (1.5-4.5); LYMPH % 19.9 % (24.0-44.0); MEAN CORPUSCULAR HEMOGLOBIN 30.7 pg (27.0-33.0); MEAN CORPUSCULAR HGB CONC 31.9 g/dl (32.0-36.5); MEAN CORPUSCULAR VOLUME 96.3 fl (80.0-96.0); MONO # 0.6 K/mm3 (0.0-0.8); MONO % 6.2 % (0.0-5.0); NEUTROPHILS # 7.1 K/mm3 (1.8-7.7); NEUTROPHILS % 69.1 % (36.0-66.0); PLATELET COUNT, AUTOMATED 290 k/mm3 (150-450); RED CELL DISTRIBUTION WIDTH 14.2 % (11.5-14.5); WHITE BLOOD COUNT 10.2 K/mm3 (4.0-10.0)
[2016-09-20 06:09] LABS: ALBUMIN 2.7 GM/DL (3.2-5.2); ALBUMIN/GLOBULIN RATIO 0.96 (1.00-1.93); ALKALINE PHOSPHATASE 50 U/L (45-117); ALT/SGPT 16 U/L (12-78); ANION GAP 5 MEQ/L (8-16); AST/SGOT 13 U/L (15-37); BILIRUBIN,TOTAL 0.3 MG/DL (0.2-1.0); BLOOD UREA NITROGEN 11 MG/DL (7-18); CALCIUM LEVEL 8.2 MG/DL (8.8-10.2); CARBON DIOXIDE LEVEL 38 MEQ/L (21-32); CHLORIDE LEVEL 101 MEQ/L (98-107); CHOLESTEROL LEVEL 156 MG/DL (< 200); CREATININE FOR GFR 0.63 MG/DL (0.55-1.02); GLOMERULAR FILTRATION RATE > 60.0 (>45); GLUCOSE, FASTING 119 MG/DL (80-110); MAGNESIUM LEVEL 1.5 MG/DL (1.8-2.4); POTASSIUM SERUM 3.6 MEQ/L (3.5-5.1); SODIUM LEVEL 144 MEQ/L (136-145); TOTAL PROTEIN 5.5 GM/DL (6.4-8.2); TRIGLYCERIDES LEVEL 202 MG/DL (<150)
[2016-09-20] MEDS: BUDESONIDE 0.5 MG/2 ML INHALATION SUSPENSION INH SCH ×2 (07:41→19:30)
[2016-09-20 07:47] LABS: ABG BASE EXCESS 11.9 (-2.0-2.0); ABG PARTIAL PRESSURE CO2 57.7 mmHg (35.0-45.0); ABG PARTIAL PRESSURE O2 92.3 mmHg (75.0-100.0); ABG STANDARD HCO3 35.7 MEQ/L (22.0-26.0); ABG TOTAL CO2 39.8 MEQ/L (23.0-31.0); ABG pH (ARTERIAL) 7.437 UNITS (7.350-7.450)
[2016-09-20] MEDS: HumaLOG INSULIN (NovoLOG) PER UNIT SC SCH ×4 (07:59→21:00)
[2016-09-20 08:00] VITALS: BP 169/79
[2016-09-20] MEDS: TIOTROPIUM INHALER/CAPSULE (SPIRIVA) INH SCH (08:00)
[2016-09-20] MEDS: SPIRONOLACTONE 25 MG TAB PO SCH (08:00)
[2016-09-20] MEDS: ESCITALOPRAM OXALATE 10 MG TAB (LEXAPRO) PO SCH (08:00)
[2016-09-20] MEDS: busPIRone 5 MG TAB PO SCH ×2 (08:00→20:58)
[2016-09-20] MEDS: MAG SULF 1GM/100ML (MAG RUN) 1 GM in APPROPRIATE DILUENT 1 EA IV SCH ×2 (08:00→09:18)
[2016-09-20] MEDS: CARVedilol 3.125 MG TAB PO SCH ×2 (08:01→20:56)
[2016-09-20] MEDS: AUGMENTIN 875 MG TAB PO SCH ×2 (08:01→20:55)
[2016-09-20] MEDS ORDERED: POTASSIUM CHLORIDE 10 MEQ SR TABLET PO ONE (08:30)
[2016-09-20] MEDS ORDERED: PANTOPRAZOLE 40MG TAB (PROTONIX) PO SCH (09:00)
[2016-09-20] MEDS: K-PHOS NEUTRAL 250MG TABLET (SOD.PHOSPHATE/POT.PHOSPHATE) PO SCH ×2 (09:19→20:55)
[2016-09-20] MEDS: ACETAMINOPHEN TAB 650MG DOSE (2X325MG) PO PRN ×2 (09:23→20:55)
--- NOTE | 2016-09-20 12:00 | IPN ---
DATE: 09/20/2016 Patient was accepted from the ICU team. The patient reported anxiously overnight. Reported respirations much improved. Denies any chest pain, pressure or discomfort. Denies any fevers or chills. VITAL SIGNS: Temperature 98.4, pulse 88, respirations 22, blood pressure 169/79, pulse oximetry 97% on 3 liters nasal cannula. LABORATORIES: WBC 10.2, hemoglobin and hematocrit 9.8/30.9, platelets 290. Chemistries: Sodium 144, potassium 3.4, chloride 101, bicarb 38, BUN 11, creatinine 0.63, magnesium 1.5. PHYSICAL EXAMINATION: GENERAL: Patient alert and oriented times three. No acute distress. HEENT: Normocephalic, atraumatic. Moist mucous membranes. PULMONARY: Diminished breath sounds bilateral, symmetrical. Expiratory wheeze. CARDIAC: Distant heart sounds, regular, S1 and S2. ABDOMEN: Obese, soft, nontender. Positive bowel sounds. EXTREMITIES: Show edema 1+, bilateral. ASSESSMENT/PLAN: This is a 71-year-old female patient with underlying medical history of advanced chronic obstructive pulmonary disease (COPD), oxygen and steroid dependent, hypertension, coronary artery disease, type 2 diabetes, and obesity admitted for acute on chronic hypoxic hypercarbic respiratory failure. 1. Acute on chronic hypoxic hypercarbic respiratory failure, possibly secondary to COPD exacerbation due to a pulmonary infection. Patient continues off BiPAP. Antibiotics have been given. Oxygen supplementation, oxygen monitoring. Continue Pulmicort, Spiriva and nebulizer treatment. Will monitor. 2. Acute renal failure, likely secondary to dehydration with underlying infection. IV fluids given. Currently off fluids. Kidney functions returning to baseline, comfortable. 3. Diarrhea. C. difficile has been negative. Possible diverticulitis. Antibiotics have been given. Continue to follow. 4. Hypokalemia/hypomagnesemia. Supplement electrolytes. Followup potassium and magnesium, supplement as needed. 5. Hypotension. Currently resolved. 6. Anxiety. Supportive care. Medications as ordered. 7. Type 2 diabetes. Insulin as per protocol. 8. Hypertension. Continue Norvasc, Coreg, losartan and spironolactone. 9. Depression. Continue home medications. Supportive care. 10. History of congestive heart failure (CHF). Patient clinically euvolemic. Continue spironolactone and Coreg. Monitor fluid status. 11. History of smoking. Counseling provided. Currently stopped, but is exposed to second hand smoking. 12. Obstructive sleep apnea (SANDY). SANDY as per protocol. The patient has not been compliant with mask ventilation. Will refer for outpatient pulmonology followup for sleep studies. 13. History of transient ischemic attack (TIA). Monitor blood pressure. Will restart aspirin. 14. Deep vein thrombosis (DVT) prophylaxis. Heparin subcu. DISPOSITION PLANNING: Pending physical therapy, clinical improvement.
[2016-09-20] MEDS: ASPIRIN 81 MG ENTERIC TAB PO SCH (13:40)
[2016-09-20 14:26] VITALS: BP 164/80
[2016-09-20] MEDS: traZODone 25MG PER 1/2 TABLET PO PRN (20:55)
[2016-09-20] MEDS: amLODIPine 10 MG TAB PO SCH (20:56)
[2016-09-20] MEDS: ATORVASTATIN 10 MG TAB PO SCH (20:56)
[2016-09-20] MEDS: LOSARTAN 50 MG TAB PO SCH (20:57)
--- NOTE | 2016-09-20 21:48 | IPN ---
DATE: 09/20/2016 TIME OF VISIT: 8:45 a.m. SUBJECTIVE: This is a 71-year-old female who is seen and examined in intensive care unit (ICU) room. Last night, she had a restless night where she was unable to sleep. Somehow she could not get herself comfortable and her gastroesophageal reflux disease (GERD) symptoms were worse. States that she normally takes omeprazole but somehow the patient was coming in with Protonix from [place]. States that she takes trazodone at home which helps with her sleep. REVIEW OF SYSTEMS: Denies any shortness of breath during the night. No chest pain, palpitations, fevers, chills, nausea, vomiting. Her bowel movements are now more formed. No longer reports diarrhea. Has good appetite; however, she is cautious about eating because she is concerned about her GERD-like symptoms returning. OBJECTIVE: VITAL SIGNS: Blood pressure 170/84, heart rate 76, temperature 98.2, respiratory rate 20, pulse oximetry 98% on three liters nasal cannula. Intake and output in the last 24 hours: 1770 and 1675. Three bowel movements documented in the last 24 hours. PHYSICAL EXAMINATION: GENERAL: The patient is sitting in bed comfortable, no acute distress. She is alert, awake, oriented times three. Pleasant, cooperative. Obese appearing. HEENT: Normocephalic, atraumatic. Moist oral mucosa. Edentulous. No thrush or lesions appreciated. Eyes: Extraocular movement intact. Pupils equal and reactive to light. NECK: Large. Could not appreciate jugular venous distention (JVD) secondary to her large neck size. CHEST: No accessory muscle use. Breath sounds diminished with occasional crackles in the lung bases, improved compared to yesterday. HEART: Distant sounding but regular. Could not appreciate murmurs, rubs, or gallops. ABDOMEN: Obese, but nontender, nondistended. Bowel sounds present. No guarding, no rebound. EXTREMITIES: 2+ pitting edema bilateral lower extremities. Sanchez catheter has been removed two days ago. PSYCHIATRIC: She appears anxious because of her inability to sleep well last night. NEUROLOGIC: She is alert, awake, oriented times three without focal deficits appreciated. LABORATORY DATA: WBC 10.2, hemoglobin 9.8, hematocrit 30.9, platelets 290. Sodium 144, potassium 3.6, chloride 101, carbon dioxide 38, BUN 11, creatinine 0.63, glucose 119, calcium 8.2, phosphorus 2, magnesium 1.5. Total bilirubin 0.3, AST 13, albumin 2.7. MEDICATIONS: Reviewed. The patient was given a one-time dose of potassium chloride earlier today. No other medications were added. IMPRESSION: Ms. Reno is a 71-year-old female with history of obstructive sleep apnea (SANDY) with CO2 retention, previously not on home continuous positive airway pressure (CPAP), hypertension, morbid obesity, admitted for dehydration and acute kidney injury (HAZEL). 1. Acute renal failure. Resolved, secondary to dehydration and infection. Her renal function is now back to its baseline. Continue current management without change. 2. Diarrhea. This is slowly resolving, Clostridium (C.) difficile culture has been negative. 3. Hypokalemia. Secondary to increased bowel frequency. Potassium has been repleted by primary team. 4. Hypertension. Blood pressure remains elevated overnight despite addition of Aldactone and losartan. We have restarted her home dose of Norvasc 10 mg to be given earlier today. Hopefully this will improve her pressure. 5. Hypophosphatemia. Likely secondary to poor nutrition and diarrhea. Will continue with Neutra-Phos until tomorrow. 6. Hypomagnesemia. Magnesium has been repleted. 7. Anemia. No evidence of bleeding. Recommend monitor for now without need for emergent transfusion. 8. Gastroesophageal reflux disease (GERD). The patient reports taking omeprazole which controls her symptoms well. Therefore, have discontinued Protonix and put her back on her home dose omeprazole. 9. Insomnia and restlessness. Reportedly was taking trazodone as needed for sleep at night. Have resumed her trazodone as needed. My preceptor for this patient encounter was Dr. Brian Ravi. The preceptor was physically present in the building during the encounter and was fully available as needed. All aspects of the patient interview, examination, medical decision making process, and medical care plan development were reviewed and approved by the preceptor. The preceptor is aware and concurs with the plan as stated in the body of this note and will attest to such by his/her co-signature. JACKIE
[2016-09-20 22:00] VITALS: BP 168/79
[2016-09-21] MEDS ORDERED: ALPRAZolam 0.25 MG TAB PO PRN (00:30)
[2016-09-21] MEDS: IPRATROPIUM 0.5MG/ALBUTEROL 2.5MG INH SOL UD 3ML (DUONEB)(J7620) NEB SCH ×5 (02:55→19:34)
[2016-09-21 06:00] VITALS: BP 166/83
[2016-09-21] MEDS: ACETAMINOPHEN TAB 650MG DOSE (2X325MG) PO PRN (06:35)
[2016-09-21] MEDS: HEPARIN SOD (PORCINE) 5000 UNITS/ML VIAL SC SCH ×3 (06:35→21:11)
[2016-09-21 06:38] LABS: MEAN CORPUSCULAR HEMOGLOBIN 31.2 pg (27.0-33.0); MEAN CORPUSCULAR HGB CONC 32.2 g/dl (32.0-36.5); MEAN CORPUSCULAR VOLUME 96.8 fl (80.0-96.0); RED CELL DISTRIBUTION WIDTH 14.3 % (11.5-14.5)
[2016-09-21 06:58] LABS: ALBUMIN 2.7 GM/DL (3.2-5.2); ANION GAP 3 MEQ/L (8-16); BLOOD UREA NITROGEN 9 MG/DL (7-18); CALCIUM LEVEL 8.5 MG/DL (8.8-10.2); CARBON DIOXIDE LEVEL 41 MEQ/L (21-32); CHLORIDE LEVEL 100 MEQ/L (98-107); GLOMERULAR FILTRATION RATE > 60.0 (>45); GLUCOSE, FASTING 125 MG/DL (80-110); MAGNESIUM LEVEL 1.5 MG/DL (1.8-2.4); PHOSPHORUS LEVEL 4.3 MG/DL (2.5-4.9); SODIUM LEVEL 144 MEQ/L (136-145)
[2016-09-21] MEDS ORDERED: SODIUM CHLORIDE 0.9% INJ 10 ML SYR IV PRN (07:00)
[2016-09-21] MEDS: MAG SULF 1GM/100ML (MAG RUN) 1 GM in APPROPRIATE DILUENT 1 EA IV SCH ×2 (08:40→09:58)
[2016-09-21] MEDS: AUGMENTIN 875 MG TAB PO SCH ×2 (08:41→21:10)
[2016-09-21] MEDS: ASPIRIN 81 MG ENTERIC TAB PO SCH (08:41)
[2016-09-21] MEDS: HumaLOG INSULIN (NovoLOG) PER UNIT SC SCH ×4 (08:41→21:00)
[2016-09-21] MEDS: SPIRONOLACTONE 25 MG TAB PO SCH (08:41)
[2016-09-21] MEDS: busPIRone 5 MG TAB PO SCH ×2 (08:41→21:08)
[2016-09-21] MEDS: ESCITALOPRAM OXALATE 10 MG TAB (LEXAPRO) PO SCH (08:41)
[2016-09-21] MEDS: OMEPRAZOLE 20 MG CAP PO SCH (08:41)
[2016-09-21] MEDS: CARVedilol 3.125 MG TAB PO SCH ×2 (08:42→21:07)
[2016-09-21 11:19] VITALS: O2SAT 93
[2016-09-21] MEDS: BUDESONIDE 0.5 MG/2 ML INHALATION SUSPENSION INH SCH ×2 (11:28→19:33)
[2016-09-21] MEDS: TIOTROPIUM INHALER/CAPSULE (SPIRIVA) INH SCH (11:28)
[2016-09-21] MEDS: FUROSEMIDE 40 MG TAB PO SCH (12:12)
--- NOTE | 2016-09-21 13:33 | IPN ---
DATE: 09/21/2016 SUBJECTIVE: This is a 71-year-old female who is seen and examined in medical-surgical floor. Yesterday she was transferred out of ICU. Overnight, she was initially restless early in the night and required addition of Xanax. Stated that her sleeping is significantly improved after medication. Diarrhea has now resolved. REVIEW OF SYSTEMS: Reports chronic shortness of breath. No chest pain, palpitations, fever, chills, nausea, vomiting, diarrhea, constipation, headache. OBJECTIVE: VITAL SIGNS: Blood pressure 166/83, heart rate 86, temperature 98.5, respirations 20, pulse oximetry 92% on 2 liters nasal cannula. Intake and output last 24 hours 1400 and 700. Weight is 97.5. She is positive 700. Two bowel movements documented in the last 24 hours. Since admission she is positive a total of 70 mL of fluid. PHYSICAL EXAMINATION: GENERAL: The patient is sitting in chair, comfortable. No acute distress. She is alert, awake, oriented times three. Pleasant, cooperative. Chronically ill appearing. HEENT: Normocephalic, atraumatic. Moist oral mucosa. Edentulous lower portion. No thrush or lesions appreciated. EYES: Extraocular movements intact. NECK: Large, difficult to appreciate jugular venous distention (JVD) secondary to large neck size. CHEST: Symmetric chest rise. No accessory muscle use. Breath sounds diminished bilateral lung bases with occasional crackles. No significant change compared to yesterday. HEART: Very distant sounding, but regular. Could not appreciate murmurs, rubs or gallops. ABDOMEN: Obese, but nontender, nondistended. Bowel sounds present. No guarding, no rebound. EXTREMITIES: Still 1 to 2+ pitting edema bilateral lower extremities more so on her right, chronic. She does not have sacral edema. Her edema is extending pretibially to her knees. PSYCHIATRIC: Appears somewhat anxious, but improved today compared to yesterday. Pleasant, cooperative. NEUROLOGICAL: No focal deficits. Alert, awake, oriented times three. LABORATORY DATA: WBC 10, hemoglobin 10.2, hematocrit 31.7, platelets 292. Sodium 144, potassium 4, chloride 100, carbon dioxide 41, BUN 9, creatinine 0.6. Glucose 125, calcium 8.5. Phosphorous 4.3. Magnesium 1.5. Albumin 2.7. Fingerstick glucose is 131 to 170. MEDICATIONS: Medications reviewed include addition of Xanax overnight. She was given magnesium supplementation this morning by the primary team. We also added Norvasc yesterday. IMPRESSION: Ms. Reno is a 71-year-old female with history of untreated obstructive sleep apnea (SANDY) outpatient, chronic obstructive pulmonary disease (COPD), with chronic CO2 retention, hypertension, morbid obesity, admitted for acute kidney injury secondary to dehydration. PLAN: 1. Acute renal failure secondary to dehydration and infection. This is now resolved. No aggressive intervention needed at this time. 2. Edema. This continues to worsen compared to yesterday. The patient takes hydrochlorothiazide outpatient and it seems that she was transferred here with Lasix 40 IV. Review of her echocardiogram shows that she has pulmonary hypertension with pressures in the 50s. Therefore, we recommend slowly restarting diuretics with Lasix 40 mg daily for now and reassess fluid status. 3. Hypertension. Blood pressure continues to remain elevated in the 140s to 170s systolic. Recommend continuing Coreg 3.1 to 5 mg twice a day, Norvasc, spironolactone 25 mg daily and Cozaar, her home dose. We have added Lasix as mentioned above. 4. Hypomagnesemia. Magnesium has been repleted by primary team. 5. Hypophosphatemia. Resolved after administration of Neutra-Phos and improvement of her diarrhea. 6. Anemia. No evidence of bleeding. Recommend to continue to monitor for now. No urgent need for transfusion. 7. Insomnia and restlessness. She has trazodone her home, dose is now resumed and she was also started on Xanax by primary team overnight. My preceptor for this patient encounter was Dr. Liss Pickering. The preceptor was physically present in the building during the encounter and was fully available. As needed, all aspects of the patient interview, examination, medical decision making process, and medical care plan development were reviewed and approved by the preceptor. The preceptor is aware and concurs with the plan as stated in the body of this note and will attest to such by his/her cosignature. JACKIE
[2016-09-21 14:00] VITALS: BP 152/81
--- NOTE | 2016-09-21 15:33 | IPN ---
DATE OF SERVICE: 09/21/2016 The patient seen and examined. No acute events overnight. Denies any fevers, chills, chest pain, pressure, or discomfort. Reported anxious overnight with restless legs. Respiration is at baseline at this time. VITAL SIGNS: Temperature 98.5, pulse 86, respirations 20, blood pressure 166/83, pulse oximetry 93% on 2 liters nasal cannula. LABORATORIES: WBC 10, hemoglobin and hematocrit 10.2 over 31.7, platelets 292. Chemistries: Sodium 144, potassium 4, chloride 100, bicarbonate 41, BUN 9, creatinine 0.6, magnesium 1.5 supplemented. PHYSICAL EXAMINATION: GENERAL: The patient alert and oriented times three. No acute distress. HEENT: Normocephalic, atraumatic. Moist mucous membranes. PULMONARY: Diminished breath sounds bilateral base. Mild expiratory wheeze. CARDIAC: Regular rate and rhythm, normal S1 and S2, distant heart sounds. ABDOMEN: Obese, soft, nontender. Positive bowel sounds. EXTREMITIES: 1+, bilateral lower extremity edema. ASSESSMENT AND PLAN: This is a 71-year-old female patient with underlying medical history of advanced chronic obstructive pulmonary disease (COPD), was oxygen (O2) and steroid dependent, poor compliance, hypertension, coronary artery disease, type 2 diabetes, morbid obesity, admitted with acute on chronic hypoxic hypercarbic respiratory failure. PROBLEMS: 1. Acute on chronic hypoxic hypercarbic respiratory failure, possibly secondary to chronic obstructive pulmonary disease exacerbation due to underlying pulmonary infection. The patient currently is weaned off bilateral positive airway pressure (BiPAP). Antibiotic has been given. Oxygen supplementation, monitor continuous pulse oximetry. Continue Pulmicort, Spiriva, and nebulizer treatment. 2. Acute renal insufficiency, likely secondary to dehydration, underlying infection. Intravenous (IV) fluids initially given. Currently off fluids. Kidney function returning to baseline. Currently, comfortable. 3. Diarrhea. Clostridium (C) difficile has been negative. Possibly diverticulitis. Antibiotics initially given. Currently, resolved. Continue to follow. 4. Hypokalemia and hypomagnesemia. Supplement electrolytes. Continue to monitor. 5. Hypotension, resolved. 6. Anxiety. Supportive care. Continue current medications. 7. Type 2 diabetes. Continue insulin as per protocol. 8. Hypertension. Continue Norvasc, Coreg, losartan, spironolactone, and Lasix. 9. Depression. Continue home medications. Supportive care. 10. History of congestive heart failure, currently euvolemic. Lasix has been added by smoking tobacco cutter operator. Continue beta blockers and spironolactone. 11. History of smoking. Counseling provided. The patient has quit smoking but was exposed to secondhand smoking from . 12. Obstructive sleep apnea. Obstructive sleep apnea (SANDY) as per protocol. The patient has been noncompliant with mask ventilation before, as per nursing unit coordinator but has requested that she return in October for her to get her continuous positive airway pressure (CPAP) or BiPAP. Will arrange for outpatient pulmonology followup for sleep studies. The case discussed with Dr. Albarran, pulmonology. 13. History of transient ischemic attack (TIA). Monitor blood pressure. Can restart aspirin. 14. Deep vein thrombosis (DVT) prophylaxis. Heparin subcutaneously. DISPOSITION PLANNING: Pending physical therapy, clinical improvement.
[2016-09-21 15:42] VITALS: O2SAT 97
[2016-09-21] MEDS: SODIUM CHLORIDE 0.9% INJ 10 ML SYR IV SCH ×2 (16:00→22:00)
[2016-09-21 19:24] VITALS: O2SAT 92
[2016-09-21] MEDS: ATORVASTATIN 10 MG TAB PO SCH (21:08)
[2016-09-21] MEDS: LOSARTAN 50 MG TAB PO SCH (21:08)
[2016-09-21] MEDS: amLODIPine 10 MG TAB PO SCH (21:09)
[2016-09-21] MEDS: rOPINIRole 0.25 MG TAB(REQUIP) PO SCH (21:19)
[2016-09-21] MEDS: traZODone 25MG PER 1/2 TABLET PO PRN (21:19)
[2016-09-21] MEDS: SERTRALINE HCL 25 MG TABLET PO SCH (21:19)
[2016-09-21 22:00] VITALS: BP 156/70
[2016-09-22] MEDS: IPRATROPIUM 0.5MG/ALBUTEROL 2.5MG INH SOL UD 3ML (DUONEB)(J7620) NEB SCH ×7 (00:12→23:16)
[2016-09-22 00:13] VITALS: O2SAT 96
[2016-09-22] MEDS: ACETAMINOPHEN TAB 650MG DOSE (2X325MG) PO PRN (00:34)
[2016-09-22] MEDS: HEPARIN SOD (PORCINE) 5000 UNITS/ML VIAL SC SCH ×3 (05:16→21:48)
[2016-09-22 05:43] LABS: MEAN CORPUSCULAR HEMOGLOBIN 30.7 pg (27.0-33.0); MEAN CORPUSCULAR HGB CONC 31.2 g/dl (32.0-36.5); MEAN CORPUSCULAR VOLUME 98.6 fl (80.0-96.0); RED CELL DISTRIBUTION WIDTH 14.4 % (11.5-14.5); WHITE BLOOD COUNT 10.7 K/mm3 (4.0-10.0)
[2016-09-22] MEDS: SODIUM CHLORIDE 0.9% INJ 10 ML SYR IV SCH ×3 (05:53→21:50)
[2016-09-22 06:00] VITALS: BP 134/63
[2016-09-22 06:02] LABS: ALBUMIN 2.9 GM/DL (3.2-5.2); ANION GAP 7 MEQ/L (8-16); BLOOD UREA NITROGEN 9 MG/DL (7-18); CALCIUM LEVEL 8.8 MG/DL (8.8-10.2); CARBON DIOXIDE LEVEL 39 MEQ/L (21-32); CHLORIDE LEVEL 96 MEQ/L (98-107); CREATININE FOR GFR 0.71 MG/DL (0.55-1.02); GLOMERULAR FILTRATION RATE > 60.0 (>45); GLUCOSE, FASTING 118 MG/DL (80-110); MAGNESIUM LEVEL 1.5 MG/DL (1.8-2.4); PHOSPHORUS LEVEL 3.9 MG/DL (2.5-4.9); POTASSIUM SERUM 4.1 MEQ/L (3.5-5.1); SODIUM LEVEL 142 MEQ/L (136-145)
[2016-09-22] MEDS: BUDESONIDE 0.5 MG/2 ML INHALATION SUSPENSION INH SCH ×2 (07:24→19:33)
[2016-09-22] MEDS: TIOTROPIUM INHALER/CAPSULE (SPIRIVA) INH SCH (07:24)
[2016-09-22] MEDS: HumaLOG INSULIN (NovoLOG) PER UNIT SC SCH ×4 (07:30→21:00)
[2016-09-22] MEDS: FUROSEMIDE 40 MG TAB PO SCH (09:00)
[2016-09-22] MEDS ORDERED: MAG SULF 1GM/100ML (MAG RUN) 1 GM in APPROPRIATE DILUENT 1 EA IV ONE (09:00)
[2016-09-22] MEDS: OMEPRAZOLE 20 MG CAP PO SCH (10:20)
[2016-09-22] MEDS: busPIRone 5 MG TAB PO SCH ×2 (10:20→21:48)
[2016-09-22] MEDS: AUGMENTIN 875 MG TAB PO SCH ×2 (10:21→21:48)
[2016-09-22] MEDS: SPIRONOLACTONE 25 MG TAB PO SCH (10:21)
[2016-09-22] MEDS: ASPIRIN 81 MG ENTERIC TAB PO SCH (10:21)
[2016-09-22] MEDS: ESCITALOPRAM OXALATE 10 MG TAB (LEXAPRO) PO SCH (10:21)
[2016-09-22] MEDS: MAGNESIUM OXIDE 400 MG TAB (MAG-OX) PO SCH ×3 (10:21→21:49)
[2016-09-22] MEDS: CARVedilol 3.125 MG TAB PO SCH ×2 (10:22→21:49)
[2016-09-22] MEDS: FUROSEMIDE 20 MG TAB PO SCH (10:25)
--- NOTE | 2016-09-22 11:23 | IPN ---
DATE: 09/22/2016 SUBJECTIVE: The patient was seen and examined at the bedside today morning. She was actually laying in the bed comfortably breathing nasal cannula. She reports that she was able to sleep well at night. She got a dose of Lasix yesterday because of leg edema. She had significant urine output with that. Leg swelling is better. Renal function is stable. REVIEW OF SYSTEMS: The patient denies any fever, chills, rigors, headache, nausea, vomiting, chest pain. She does report some shortness of breath and she wears nasal cannula. She denies any pain in abdomen, constipation or diarrhea. She does report leg swelling, but reports that it is improving. OBJECTIVE: VITAL SIGNS: Temperature 98.5 degrees Fahrenheit, blood pressure is 134/63, pulse is 89, respiratory rate of 20, saturating 91% on nasal cannula at 2 liters per minute. Intake and output: Urine output was 3.2 liters yesterday, 1300 mL so far today since overnight. Weight on the bed scale is not available. PHYSICAL EXAMINATION: The patient is awake, alert and oriented times three. Laying in bed. No apparent distress HEAD/NECK: Extraocular muscles intact. Pupils equally round and reactive to light. Mucous membranes are moist. Neck is supple. There is no jugular venous distention (JVD). CARDIOVASCULAR: S1, S2, regular rate. No murmur, rub or gallop. RESPIRATORY: Decreased breath sounds at the bases, otherwise no rales or rhonchi. ABDOMEN: Soft. Obese. Positive bowel sounds. Nontender. No ascites. No organomegaly. EXTREMITIES: Patient has about 1+ pitting edema of the bilateral lower extremities. CENTRAL NERVOUS SYSTEM: No focal neurological deficit. Power is 5/5 in all extremities. PSYCHIATRIC: Normal mood and affect. LAB REVIEW: CBC showed WBC 10.7, hemoglobin 10.2, platelets of 316. BMP showed sodium 142, potassium 4.1, chloride 96, bicarbonate 39, BUN 9, creatinine is 0.7. Glucose is 118. Magnesium is 1.5. CURRENT MEDICATIONS: The patient's medications were all reviewed by me. There is no change in the medications today as compared with yesterday. She was started on Lasix 40 mg by mouth daily. First dose was given yesterday and she was also given magnesium sulfate, 1 gram IV times two doses yesterday. ASSESSMENT: Mrs. Yeimi Reno is a 71-year-old female with past medical history of untreated obstructive sleep apnea, with chronic obstructive pulmonary disease (COPD), chronic CO2 retention, hypertension and morbid obesity admitted with COPD exacerbation and acute kidney injury secondary to dehydration. PLAN: 1. Acute kidney injury. It was secondary to dehydration and infection. The patient's renal function has improved. No need of IV fluid hydration at this time. 2. Lower extremity edema. The patient had worsening lower extremity edema yesterday. She was aggressively fluid hydrated as well during this admission so I gave her a dose of Lasix 40 mg by mouth. She responded well to Lasix. However, I am going to decrease the dose to 20 mg by mouth daily. 3. Hypertension. Blood pressure was elevated yesterday. Her angiotensin-converting enzyme (GISELLE) inhibitor is on hold at this time. She continues to be on amlodipine 10 mg by mouth daily. Lasix dose is being decreased to 20 mg by mouth daily. Losartan was restarted after renal function was improved and she is on 50 mg by mouth daily and spironolactone is 25 mg by mouth daily. Continue current regimen for now. Diuresis will help improve blood pressure as well. No need of escalation of therapy at this time. 4. Hypomagnesemia. The patient continues to be hypomagnesemic, most likely secondary to omeprazole. Continue magnesium oxide 400 mg by mouth three times a day. I have ordered a dose of magnesium sulfate, 1 gram IV times one dose. 5. Anemia. I am going to check the iron levels at this time. Hemoglobin is more than 10. No need of blood transfusion at this time. However, if the iron level is low, the patient will get IV Venofer.
[2016-09-22 13:01] LABS: PERCENT SATURATION 24.8 % (13.2-37.4)
[2016-09-22 14:00] VITALS: BP 143/65
--- NOTE | 2016-09-22 15:53 | IPN ---
DATE: 09/22/2016 Patient seen and examined. No acute events overnight. Reported nighttime anxiety and fidgety. Leg movement much improved. Denies any fever or chills, chest pain, pressure or discomfort. Reported respirations currently still at baseline. Continues to be mildly weak. VITAL SIGNS: Temperature 98.5, pulse 89, respirations 22, blood pressure 134/63, pulse oximetry 91% on 2 liters nasal cannula. LABORATORY DATA: WBC 10.7, hemoglobin and hematocrit 10.2/32.7, platelets 316. Chemistry: Sodium 142, potassium 4.1, chloride 96, bicarbonate 39, BUN 9, creatinine 0.7. PHYSICAL EXAMINATION: Patient alert and oriented times three, in no acute distress. HEENT: Normocephalic, atraumatic. Moist mucous membranes. PULMONARY: Diminished breath sounds bilaterally, minimal expiratory wheeze. CARDIAC: Regular rate and rhythm. Normal S1, S2. Distant heart sounds. ABDOMEN: Obese, soft, nontender, nondistended. EXTREMITIES: Trace bilateral lower extremity edema. ASSESSMENT AND PLAN: This is a 71-year-old female patient with underlying medical history of advanced chronic obstructive pulmonary disease (COPD), was on oxygen and was on steroids at home, poor compliance, questionable obstructive sleep apnea, hypertension, coronary artery disease, type 2 diabetes, morbid obesity, admitted with acute on chronic hypoxic hypercarbic respiratory failure. 1. Acute on chronic hypoxic hypercarbic respiratory failure, possibly secondary to chronic obstructive pulmonary disease (COPD) exacerbation due to underlying pulmonary infection. Patient is currently weaned of bilevel positive airway pressure (BiPAP). Antibiotic was initially given. Oxygen supplementation. Continue pulse oximetry, Pulmicort, Spiriva, and nebulizer treatment as ordered. 2. Acute renal insufficiency, likely secondary to dehydration, underlying infection. IV fluids initially given, currently off fluids. Kidney function returning to baseline. Appreciate assistance from nephrology. 3. Diarrhea. Clostridium (C) difficile has been negative. Possible diverticulitis. Antibiotics have been given. Currently resolved. Continue to follow. 4. Hypokalemia/hypomagnesemia. Supplementation. Followup electrolytes. 5. Hypotension, resolved. 6. Anxiety. Supportive care. Continue current medication. 7. Type 2 diabetes. Continue insulin as per protocol. 8. Hypertension. Continue Norvasc, Coreg, losartan, spironolactone, and Lasix. 9. Depression. Continue current medications. 10. History of congestive heart failure. Currently euvolemic. Lasix and spironolactone as ordered. Continue beta blockers. 11. History of smoking. Counseling provided. Patient quit smoking but is exposed to secondhand smoking from . 12. Obstructive sleep apnea. Obstructive sleep apnea (SANDY) protocol. Patient was poorly compliant with mask ventilation as per dimensional engineer. Will arrange for outpatient pulmonology followup for sleep study. Patient and family services (PFS) consulted. Case discussed with Dr. Albarran. 13. History of transient ischemic attack (TIA). Monitor blood pressure. Restart aspirin. 14. Questionable restless leg syndrome. Started on Requip with improvement. Continue to monitor. 15. Deep venous thrombosis (DVT) prophylaxis. Heparin subcutaneous. DISPOSITION PLANNING: Pending clinical improvement and physical therapy. Patient and family services (PFS) for possible arrangement for outpatient followup appointments and transportation arrangements.
[2016-09-22 19:32] VITALS: O2SAT 97
[2016-09-22] MEDS: rOPINIRole 0.25 MG TAB(REQUIP) PO SCH (21:48)
[2016-09-22] MEDS: LOSARTAN 50 MG TAB PO SCH (21:49)
[2016-09-22] MEDS: ATORVASTATIN 10 MG TAB PO SCH (21:49)
[2016-09-22] MEDS: amLODIPine 10 MG TAB PO SCH (21:49)
[2016-09-22] MEDS: SERTRALINE HCL 25 MG TABLET PO SCH (21:49)
[2016-09-22 22:00] VITALS: BP 147/68
[2016-09-22 23:10] VITALS: O2SAT 92
[2016-09-23] MEDS: ACETAMINOPHEN TAB 650MG DOSE (2X325MG) PO PRN (00:44)
[2016-09-23] MEDS: IPRATROPIUM 0.5MG/ALBUTEROL 2.5MG INH SOL UD 3ML (DUONEB)(J7620) NEB SCH ×6 (04:00→23:30)
[2016-09-23] MEDS: HEPARIN SOD (PORCINE) 5000 UNITS/ML VIAL SC SCH ×3 (05:15→21:05)
[2016-09-23] MEDS: SODIUM CHLORIDE 0.9% INJ 10 ML SYR IV SCH ×3 (05:15→21:06)
[2016-09-23 06:00] VITALS: BP 176/81
[2016-09-23 06:48] LABS: MEAN CORPUSCULAR HEMOGLOBIN 31.5 pg (27.0-33.0); MEAN CORPUSCULAR HGB CONC 31.8 g/dl (32.0-36.5); MEAN CORPUSCULAR VOLUME 98.9 fl (80.0-96.0); RED CELL DISTRIBUTION WIDTH 14.7 % (11.5-14.5); WHITE BLOOD COUNT 10.8 K/mm3 (4.0-10.0)
[2016-09-23] MEDS: BUDESONIDE 0.5 MG/2 ML INHALATION SUSPENSION INH SCH ×2 (07:10→19:31)
[2016-09-23] MEDS: TIOTROPIUM INHALER/CAPSULE (SPIRIVA) INH SCH (07:10)
[2016-09-23 07:11] LABS: ALBUMIN 2.7 GM/DL (3.2-5.2); ANION GAP 5 MEQ/L (8-16); BLOOD UREA NITROGEN 17 MG/DL (7-18); CARBON DIOXIDE LEVEL 40 MEQ/L (21-32); CHLORIDE LEVEL 96 MEQ/L (98-107); CREATININE FOR GFR 0.76 MG/DL (0.55-1.02); GLOMERULAR FILTRATION RATE > 60.0 (>45); GLUCOSE, FASTING 123 MG/DL (80-110); MAGNESIUM LEVEL 1.7 MG/DL (1.8-2.4); PHOSPHORUS LEVEL 4.3 MG/DL (2.5-4.9); POTASSIUM SERUM 4.2 MEQ/L (3.5-5.1); SODIUM LEVEL 141 MEQ/L (136-145)
[2016-09-23] MEDS: OMEPRAZOLE 20 MG CAP PO SCH (10:05)
[2016-09-23] MEDS: AUGMENTIN 875 MG TAB PO SCH ×2 (10:05→21:05)
[2016-09-23] MEDS: busPIRone 5 MG TAB PO SCH ×2 (10:05→21:04)
[2016-09-23] MEDS: ASPIRIN 81 MG ENTERIC TAB PO SCH (10:06)
[2016-09-23] MEDS: ESCITALOPRAM OXALATE 10 MG TAB (LEXAPRO) PO SCH (10:06)
[2016-09-23] MEDS: MAGNESIUM OXIDE 400 MG TAB (MAG-OX) PO SCH ×3 (10:06→21:05)
[2016-09-23] MEDS: SPIRONOLACTONE 25 MG TAB PO SCH (10:06)
[2016-09-23] MEDS: CARVedilol 3.125 MG TAB PO SCH ×2 (10:07→21:06)
[2016-09-23] MEDS: HumaLOG INSULIN (NovoLOG) PER UNIT SC SCH ×4 (10:08→21:00)
[2016-09-23] MEDS: FUROSEMIDE 20 MG TAB PO SCH (10:08)
--- NOTE | 2016-09-23 12:48 | IPN ---
DATE: 09/23/2016 SUBJECTIVE: The patient was see and examined at the bedside today in the morning. She was lying in the bed wearing nasal cannula. Reports that she could not sleep well last night; however, she reports that her edema is getting better. The patient continues to be hypertensive, above target range. Her renal function is stable at this time. REVIEW OF SYSTEMS: The patient denies any fever, chills, rigors, headache, nausea, vomiting, or chest pain. She reports mild shortness of breath. She denies any pain in the abdomen, constipation or diarrhea. She reports her leg edema is getting better. The rest of the review of systems is negative. OBJECTIVE: VITAL SIGNS: Temperature is 98.2 degrees Fahrenheit, blood pressure is 164/76, pulse is 78, respiratory rate of 18, saturating 90% on nasal cannula at 2 liters per minute. Intake and output: Urine output recorded is 1.7 liters yesterday and 1350 mL so far today since overnight. PHYSICAL EXAMINATION: GENERAL: The patient is awake, alert and oriented times three. Lying in bed. Wearing nasal cannula. No apparent distress. HEAD/NECK EXAM: Extraocular muscles intact. Pupils are equal, round and reactive to light. Mucous membranes are moist. Neck is supple. There is no jugular venous distention (JVD). CARDIOVASCULAR: S1, S2. Regular rate. No murmur, rub or gallop. RESPIRATORY: Mildly decreased breath sounds at the bases because of chronic obstructive pulmonary disease (COPD). Otherwise, no rales or rhonchi. ABDOMEN: Soft, obese. Positive bowel sounds. Nontender. No ascites. No organomegaly. EXTREMITIES: The patient has 1+ pitting edema of the bilateral lower extremities. Otherwise, no clubbing or cyanosis. CENTRAL NERVOUS SYSTEM (JAVA ORACLE DEVELOPER): No focal neurological deficits. Power is 5/5 in all extremities. PSYCHIATRIC: Normal mood and affect. LABORATORY REVIEW: CBC showed a WBC of 10.8, hemoglobin 10.2, platelets 329. BMP showed a sodium of 141, potassium 4.2, chloride 96, bicarbonate is 40, BUN 17, creatinine is 0.76, phosphorous 4.3, magnesium is 1.7, albumin 2.7. CURRENT MEDICATIONS: The patient's medications were all reviewed by me. The only change in the medications today is her losartan has been increased to 75 mg by mouth daily. Her Requip dose has been increased to 1 mg at night and her furosemide dose is changed to 20 mg by mouth daily now. There is no change in the medications otherwise. ASSESSMENT: Mrs. Yeimi Reno is a 71-year-old female with a past medical history of untreated obstructive sleep apnea with chronic obstructive pulmonary disease (COPD), chronic CO2 retention, hypertension, and morbid obesity, admitted this time with COPD exacerbation and acute kidney injury secondary to dehydration. PLAN: 1. Acute kidney injury. This is secondary to dehydration and infection. The patient's renal function is improved back to her baseline. 2. Lower extremity edema. Initially, the patient was dry and was hydrated with IV fluids; however, because of the mild pulmonary hypertension, she has developed lower extremity edema. She was started on Lasix 40 mg by mouth daily. She had a very good response. Edema is improving. I have already decreased the dose to 20 mg by mouth daily. 3. Hypertension. Blood pressure is still above baseline. Losartan dose has already been increased to 75 mg by mouth daily. Continue current dose of amlodipine and Coreg as well. If the blood pressure does not improve by tomorrow, then Coreg dose will be increased. 4. Hypomagnesemia. Continue current dose of magnesium oxide 400 mg by mouth three times a day. Magnesium level is slightly better to 1.7 today. 5. Anemia. Hemoglobin is more than 10 and no need of Aranesp administration at this time. Iron levels were checked and they are adequate at this time.
[2016-09-23] MEDS ORDERED: MAG400TA PO (13:06)
[2016-09-23] MEDS ORDERED: FURO20TA2 PO (13:06)
[2016-09-23] MEDS ORDERED: LOSA100T36 PO (13:06)
[2016-09-23] MEDS ORDERED: REQU1TAB16 PO (13:06)
[2016-09-23] MEDS: LOSARTAN 50 MG TAB PO SCH (21:04)
--- NOTE | 2016-09-23 21:04 | DSES ---
DATE OF ADMISSION: 09/16/2016 DATE OF DISCHARGE: Discharge is pending physical therapy (PT) and clinical improvement, likely within the next 24 hours. SAW BOSS: Dr. Ravi and Dr. Pickering CANE PILER: Dr. Schmidt PRIMARY CARE PROVIDER: Dr. Edwards FINAL DIAGNOSES: 1. Acute on chronic hypoxic hypercarbic respiratory failure. 2. Acute chronic obstructive pulmonary disease (COPD). 3. Acute renal insufficiency. 4. Diarrhea. 5. Hypokalemia. 6. Hypomagnesemia. 7. Hypotension. 8. Questionable diverticulitis. 9. Hypotension. 10. Anxiety. 11. Type 2 diabetes. 12. Hypertension. 13. Depression. 14. History of congestive heart failure (CHF). 15. History of smoking. 16. Obstructive sleep apnea. 17. History of transient ischemic attack. 18. Questionable restless leg syndrome. HISTORY OF PRESENT ILLNESS: This is a 71-year-old female patient with nearly end stage COPD, chronic hypoxia hypercarbic respiratory failure with multiple admissions to [facility] with complaints of abdominal pain, nausea, vomiting, CT scan showing questionable diverticulitis. The patient was started on antibiotics with lactic acidosis with respiratory acidosis. Subsequently, the patient was transferred from [facility] to [facility] intensive care unit (ICU). At [facility], the patient was on BiPAP, given antibiotics. The patient was weaned off the BiPAP. Nephrology was consulted. IV hydration has been given initially. Kidney function gradually improved. Nebulizer treatment, Pulmicort was also given to the patient. The patient's ABG repeat showed improvement. Subsequently, the patient was weaned off the BiPAP and transferred to the hospitalist service. Medication was given for restless leg syndrome and also anxiety. Patient and family services (PFS) was consulted for arrangements of outpatient transportation. Physical therapy (PT) was consulted. The patient is currently tolerating oral with baseline respirations. The patient still has dyspnea on exertion. Denies any chest pain, pressure, or discomfort. Still feels anxious. VITAL SIGNS: Temperature 98.2, pulse 84, respirations 18, blood pressure 164/76, pulse oximetry 90% on room air. LABORATORY DATA: ABG 7.44, 57.7, 92.3, 38. WBC 10.8, hemoglobin and hematocrit 10.2/32, platelets 329. Chemistry: Sodium 141, potassium 4.2, chloride 96, bicarbonate 40, BUN 19, creatinine 0.76, magnesium 1.7, Clostridium (C) difficile negative. Methicillin resistant Staphylococcus aureus (MRSA) screening negative. ASSESSMENT AND PLAN: This is a 71-year-old female patient with underlying medical history of advanced chronic obstructive pulmonary disease (COPD) on oxygen at home, was on steroids at home with poor compliance, questionable obstructive sleep apnea, hypertension, coronary arterial disease, type 2 diabetes, morbid obesity, admitted with acute on chronic hypoxic hypercarbic respiratory failure from [facility]. 1. Acute on chronic hypoxic hypercarbic respiratory failure, possibly secondary to chronic obstructive pulmonary disease (COPD) exacerbation due to underlying pulmonary infection. The patient is currently weaned off of bilevel positive airway pressure (BIPAP). Antibiotics were initially given. Oxygen supplementation. Pulse oximetry. Pulmicort, Spiriva, nebulizer treatments as ordered. 2. Acute renal insufficiency, likely secondary to dehydration, underlying infection. IV fluids initially provided. Currently, kidney function is back to baseline. Appreciate nephrology assistance. 3. Diarrhea. C difficile has been negative. Possible diverticulitis. Antibiotics have been given. Currently, resolved. Continue to follow. 4. Hypokalemia and hypomagnesemia, supplementation as ordered. Followup electrolytes. 5. Hypotension, resolved. 6. Anxiety. Supportive care. Continue current medications. 7. Type 2 diabetes. Insulin as per protocol. Resume home regimen once discharged. 8. Hypertension. Continue Norvasc, Coreg, losartan dosage increase, spironolactone, Lasix. 9. Depression. Continue current medications. 10. History of congestive heart failure (CHF). The patient is currently euvolemic. Lasix and spironolactone as ordered. Continue beta samantha. 11. History of smoking. Counseling provided. The patient recently quit smoking. Secondhand smoke from . 12. Obstructive sleep apnea. SANDY protocol while the patient is inpatient. Poor compliance with mask ventilation. As per garment steamer, outpatient followup with pulmonology for sleep study. Case discussed with Dr. Albarran. Patient and family services (PFS) consulted. 13. History of transient ischemic attack. Monitor blood pressure. Continue aspirin and blood pressure medication. 14. Restless leg syndrome. Requip dosage has been increased. Currently improved. Continue to monitor. 15. Deep vein thrombosis (DVT) prophylaxis. The patient is given heparin as an inpatient. DISPOSITION: Pending physical therapy (PT) and clinical improvement. DISCHARGE MEDICATIONS: - Lasix 20 mg by mouth daily - losartan 100 mg by mouth daily - magnesium oxide 400 mg by mouth three times a day - Requip 1 mg by mouth at night Home medications continued were: - acetaminophen 650 mg every 8 hours as needed - albuterol inhalation every 2 hours as needed - Ventolin inhaler four times a day as needed - DuoNeb four times a day as needed - Norvasc 10 mg by mouth at night - aspirin 81 mg by mouth daily - Lipitor 10 mg by mouth at night - buspirone 50 mg by mouth twice a day - calcium carbonate as needed - Coreg 3.125 mg by mouth twice a day - vitamin D 1000 units by mouth daily - vitamin B12 1000 mcg by mouth daily - Lexapro 10 mg by mouth daily - Breo 125 mcg inhalation daily - glipizide 5 mg by mouth daily - Ellipta 62.5 mcg inhalation daily - metformin 1000 mg by mouth twice a day - multivitamin one tablet by mouth daily - Zofran 4 mg by mouth every 4 hours as needed - Protonix 40 mg by mouth daily - sertraline 100 mg by mouth daily - spironolactone 50 mg by mouth daily - tramadol 50 mg by mouth as needed - trazodone 25 mg by mouth at night DISCHARGE INSTRUCTIONS: The patient is instructed to followup with primary care provider in 7 days, garment steamer in 7 days to arrange for outpatient sleep study, guide visitor in 2 to 3 weeks. Return to the hospital if symptoms worsen. Discharge pending clinical improvement and physical therapy (PT).
[2016-09-23] MEDS: rOPINIRole 1MG TAB PO SCH (21:05)
[2016-09-23] MEDS: SERTRALINE HCL 25 MG TABLET PO SCH (21:05)
[2016-09-23] MEDS: amLODIPine 10 MG TAB PO SCH (21:05)
[2016-09-23] MEDS: ATORVASTATIN 10 MG TAB PO SCH (21:06)
[2016-09-23 22:00] VITALS: BP 147/60
[2016-09-24] MEDS: IPRATROPIUM 0.5MG/ALBUTEROL 2.5MG INH SOL UD 3ML (DUONEB)(J7620) NEB SCH ×6 (04:00→23:55)
[2016-09-24] MEDS: HEPARIN SOD (PORCINE) 5000 UNITS/ML VIAL SC SCH ×3 (05:12→21:34)
[2016-09-24] MEDS: SODIUM CHLORIDE 0.9% INJ 10 ML SYR IV SCH (05:12)
[2016-09-24 05:56] LABS: MEAN CORPUSCULAR HEMOGLOBIN 31.6 pg (27.0-33.0); MEAN CORPUSCULAR VOLUME 98.8 fl (80.0-96.0); RED CELL DISTRIBUTION WIDTH 14.8 % (11.5-14.5); WHITE BLOOD COUNT 11.9 K/mm3 (4.0-10.0)
[2016-09-24 06:00] VITALS: BP 125/58
[2016-09-24 06:05] LABS: ALBUMIN 2.9 GM/DL (3.2-5.2); ANION GAP 7 MEQ/L (8-16); BLOOD UREA NITROGEN 18 MG/DL (7-18); CALCIUM LEVEL 8.9 MG/DL (8.8-10.2); CARBON DIOXIDE LEVEL 36 MEQ/L (21-32); CHLORIDE LEVEL 97 MEQ/L (98-107); CREATININE FOR GFR 0.82 MG/DL (0.55-1.02); GLOMERULAR FILTRATION RATE > 60.0 (>45); GLUCOSE, FASTING 146 MG/DL (80-110); PHOSPHORUS LEVEL 3.9 MG/DL (2.5-4.9); POTASSIUM SERUM 4.1 MEQ/L (3.5-5.1); SODIUM LEVEL 140 MEQ/L (136-145)
[2016-09-24] MEDS: TIOTROPIUM INHALER/CAPSULE (SPIRIVA) INH SCH (07:11)
[2016-09-24] MEDS: BUDESONIDE 0.5 MG/2 ML INHALATION SUSPENSION INH SCH ×2 (07:11→19:54)
[2016-09-24] MEDS: HumaLOG INSULIN (NovoLOG) PER UNIT SC SCH ×4 (07:53→21:00)
[2016-09-24] MEDS: CARVedilol 3.125 MG TAB PO SCH ×2 (07:54→21:33)
[2016-09-24] MEDS: ASPIRIN 81 MG ENTERIC TAB PO SCH (07:54)
[2016-09-24] MEDS: ESCITALOPRAM OXALATE 10 MG TAB (LEXAPRO) PO SCH (07:54)
[2016-09-24] MEDS: SPIRONOLACTONE 25 MG TAB PO SCH (07:54)
[2016-09-24] MEDS: MAGNESIUM OXIDE 400 MG TAB (MAG-OX) PO SCH ×3 (07:54→21:33)
[2016-09-24] MEDS: ACETAMINOPHEN TAB 650MG DOSE (2X325MG) PO PRN ×2 (07:55→12:34)
[2016-09-24] MEDS: OMEPRAZOLE 20 MG CAP PO SCH (07:55)
[2016-09-24] MEDS: AUGMENTIN 875 MG TAB PO SCH ×2 (07:55→21:33)
[2016-09-24] MEDS: busPIRone 5 MG TAB PO SCH ×2 (07:55→21:33)
[2016-09-24] MEDS: FUROSEMIDE 20 MG TAB PO SCH (07:55)
[2016-09-24 14:00] VITALS: BP 130/61
--- NOTE | 2016-09-24 17:13 | IPNPDOC ---
Date Seen The patient was seen on 09/24/16. Progress Note Hospitalist Progress Note Subjective: Miss Reno states that she continues to feel short of breath, and she is on her baseline amount of oxygen, but she feels very tired, and she states that she has a very difficult time working with physical therapy. She will continue to work with them, but is not sure if she is ready to leave the hospital at this time. Otherwise, she does not have any focal complaints, and the remainder of her review of systems is negative. Objective: General: Sitting upright in her chair, she just finished eating breakfast. She is awake, alert, and oriented 3. HEENT: Head normocephalic, atraumatic, sclera are nonicteric. Hearing is grossly intact to conversation. Respiratory: Clear to auscultation bilaterally with no wheezes, rales, or rhonchi. Cardiovascular: Regular rate and rhythm, with no rubs, gallops, or murmur. Abdomen: Soft, nontender, nondistended, no hepatosplenomegaly appreciated. Bowel sounds present. Extremities: 2+ pulses in the radial and dorsalis pedis bilaterally. Trace pedal edema bilaterally left worse than right. Assessment: ASSESSMENT AND PLAN: This is a 71-year-old female patient with underlying medical history of advanced chronic obstructive pulmonary disease (COPD) on oxygen at home, was on steroids at home with poor compliance, questionable obstructive sleep apnea, hypertension, coronary arterial disease, type 2 diabetes, morbid obesity, admitted with acute on chronic hypoxic hypercarbic respiratory failure from [facility] 1. Acute on chronic hypoxic hypercarbic respiratory failure, possibly secondary to chronic obstructive pulmonary disease (COPD) exacerbation due to underlying pulmonary infection. The patient is currently weaned off of bilevel positive airway pressure (BIPAP). Antibiotics were initially given. Oxygen supplementation. Pulse oximetry. Pulmicort, Spiriva, nebulizer treatments as ordered. 2. Acute renal insufficiency, likely secondary to dehydration, underlying infection. IV fluids initially provided. Currently, kidney function is back to baseline. Appreciate nephrology assistance. 3. Diarrhea. C difficile has been negative. Possible diverticulitis. Antibiotics have been given. Currently, resolved. Continue to follow. 4. Hypokalemia and hypomagnesemia, supplementation as ordered. Followup electrolytes. 5. Hypotension, resolved. 6. Anxiety. Supportive care. Continue current medications. 7. Type 2 diabetes. Insulin as per protocol. Resume home regimen once discharged. 8. Hypertension. Continue Norvasc, Coreg, losartan dosage increase, spironolactone, Lasix. 9. Depression. Continue current medications. 10. History of congestive heart failure (CHF). The patient is currently euvolemic. Lasix and spironolactone as ordered. Continue beta samantha. 11. History of smoking. Counseling provided. The patient recently quit smoking. Secondhand smoke from . 12. Obstructive sleep apnea. SANDY protocol while the patient is inpatient. Poor compliance with mask ventilation. As per tack driller, outpatient followup with pulmonology for sleep study. Case discussed with Dr. Albarran. Patient and family services (PFS) consulted. 13. History of transient ischemic attack. Monitor blood pressure. Continue aspirin and blood pressure medication. 14. Restless leg syndrome. Requip dosage was been increased. Currently improved. Continue to monitor. 15. Deep vein thrombosis (DVT) prophylaxis. The patient is given heparin as an inpatient. Disposition: No major changes were made to her medical regimen today, she will work with physical therapy again today, and we will see what their recommendations are. It appears that she will have a prolonged recovery, we may consider the option of subacute rehabilitation. My preceptor for this patient encounter was physically present in the building during the encounter and was fully available. As needed, all aspects of the patient interview, examination, medical decision making process, and medical care plan development were reviewed and approved by the preceptor. Preceptor is aware and concurs with the plan as stated in the body of this note and will attest to such by his/her cosignature. VS, I&O, [facility] V[facility] Sign[facility]/I&O Vital Signs Date Time Temp Pulse Resp B/P Pulse Ox O2 Delivery O2 Flow Rate FiO2 09/24/16 14:00 97.6 74 18 130/61 94 Nasal Cannula 2.0 09/19/16 04:00 30 I&O- Last 24 Hours up to 6 AM 09/24/16 06:00 Intake Total 1680 ml Output Total 1900 ml Balance -220 ml Laboratory Data 24H LABS Laboratory Tests 2 09/23/16 20:22: Bedside Glucose (Misc Panel) 181H 09/24/16 05:15: Albumin 2.9L, Blood Urea Nitrogen 18, Creatinine 0.82, Sodium Level 140, Potassium Level 4.1, Chloride Level 97L, Carbon Dioxide Level 36H, Anion Gap 7L , Calcium Level 8.9, Glomerular Filtration Rate > 60.0, Magnesium Level 1.9, Phosphorus Level 3.9 09/24/16 11:55: Bedside Glucose (Misc Panel) 148H 09/24/16 16:57: Bedside Glucose (Misc Panel) 146H CBC/BMP Laboratory Tests 09/24/16 05:15 Anion Gap 7 L, Red Blood Count 3.18 L, Mean Corpuscular Volume 98.8 H, Mean Corpuscular Hemoglobin 31.6, Mean Corpuscular Hemoglobin Concent 32.0, Red Cell Distribution Width 14.8 H Microbiology Microbiology 09/18/16 Clostridium difficile (PCR) - Final, Complete FANNIE JIANG DO Sep 24, 2016 17:13
--- NOTE | 2016-09-24 19:08 | IPN ---
DATE: 09/24/2016 SUBJECTIVE: Patient was seen and examined at the bed side today in the morning. She had just gotten back from the rest room and she was short of breath at that time, she was wearing nasal cannula. Patient's renal function is stable at this time. Leg edema continues to improve. Electrolytes are stable as well. REVIEW OF SYSTEMS: Patient denies any fevers, chills, rigors, headache, nausea, vomiting, chest pain. She does report shortness of breath. She reports lower extremity edema but reports that edema is improving. The rest of review of systems is negative. OBJECTIVE: VITAL SIGNS: Temperature 98.2 degree Fahrenheit, blood pressure is 125/58, pulse is 80, respiratory rate of 18, saturating 91% on nasal cannula at 2 liter per minute. INTAKE AND OUTPUT: Urine output recorded is 2.5 liters yesterday, 9 mL so far today since overnight. PHYSICAL EXAMINATION: GENERAL: Patient is awake, alert, and oriented times three sitting on the sofa in mild respiratory distress. HEAD AND NECK: Extraocular muscles intact. Pupils equal, round, reactive to light.. Moist mucous membranes. Neck is supple. No jugular venous distention. CARDIOVASCULAR: S1, S2, regular rate and rhythm. No murmur, rub or gallop. RESPIRATORY: Chest is clear to auscultation bilaterally. There are decreased breath sounds at the bases. Otherwise no rales or rhonchi. ABDOMEN: Is soft, obese, positive bowel sounds. Non-tender. No ascites. No organomegaly. EXTREMITIES: No clubbing or cyanosis. He has 1+ pitting edema in the bilateral lower extremities. CENTRAL NERVOUS SYSTEM: No focal neurologic deficit. Power 5/5 in all extremities. SKIN: No rashes or ulcers. LABORATORY REVIEW: CBC Showed a WBC 11.9, hemoglobin 10, platelets at 360. BMP showed sodium 140, potassium 4.1, chloride 97, bicarbonate 36, BUN 18, creatinine 0.82, calcium 8.9, phosphorous 3.9, albumin 2.9. CURRENT MEDICATIONS: Current medications are all reviewed me. She is currently on Lasix 20 mg by mouth daily. There is no change in the medications today as compared with yesterday. ASSESSMENT: . Mrs. Yeimi Reno is a 71-year-old female with a past medical history of untreated obstructive sleep apnea along with chronic obstructive pulmonary disease (COPD), chronic CO2 retention, hypertension, and morbid obesity, admitted this time with COPD exacerbation and acute kidney injury secondary to dehydration and volume depletion. PLAN: 1. Acute kidney injury. This is secondary to dehydration and infection. The renal function is improved back to her baseline. 2. Lower extremity edema. Patient continues to diurese well. I have decreased her dose to Lasix 20 mg by mouth daily. Continue current dose at this time. 3. Hypertension. Patients blood pressure is significantly better with current dose of Losartan 75 mg by mouth daily, Lasix 20 mg by mouth daily, amlodipine 10 mg by mouth daily, Coreg 3.125 mg by mouth twice a day. 4. Hypomagnesemia. Magnesium level is within the acceptable level. Continue current dose of magnesium. 5. Anemia. Hemoglobin is within the acceptable level, it is around 10. No need of Aranesp administration at this time. Iron levels are okay. 6. Patients renal function has improved back to her baseline. She can continue her continue regimen of antihypertensive medications and diuretics. Nephrology service will sign off at this moment. Please call nephrology service as needed for any help in the management of this patient.
[2016-09-24] MEDS: LOSARTAN 50 MG TAB PO SCH (21:32)
[2016-09-24] MEDS: SERTRALINE HCL 25 MG TABLET PO SCH (21:33)
[2016-09-24] MEDS: ATORVASTATIN 10 MG TAB PO SCH (21:33)
[2016-09-24] MEDS: rOPINIRole 1MG TAB PO SCH (21:33)
[2016-09-24] MEDS: amLODIPine 10 MG TAB PO SCH (21:33)
[2016-09-24 22:00] VITALS: BP 144/65
[2016-09-25] MEDS: HEPARIN SOD (PORCINE) 5000 UNITS/ML VIAL SC SCH ×3 (05:23→21:25)
[2016-09-25 06:00] VITALS: BP 120/60
[2016-09-25] MEDS: BUDESONIDE 0.5 MG/2 ML INHALATION SUSPENSION INH SCH ×2 (07:11→20:00)
[2016-09-25] MEDS: IPRATROPIUM 0.5MG/ALBUTEROL 2.5MG INH SOL UD 3ML (DUONEB)(J7620) NEB SCH ×5 (07:11→23:35)
[2016-09-25] MEDS: TIOTROPIUM INHALER/CAPSULE (SPIRIVA) INH SCH (07:11)
[2016-09-25 07:32] LABS: MEAN CORPUSCULAR HEMOGLOBIN 31.4 pg (27.0-33.0); MEAN CORPUSCULAR HGB CONC 31.6 g/dl (32.0-36.5); MEAN CORPUSCULAR VOLUME 99.2 fl (80.0-96.0); RED CELL DISTRIBUTION WIDTH 14.6 % (11.5-14.5); WHITE BLOOD COUNT 11.9 K/mm3 (4.0-10.0)
[2016-09-25 07:43] LABS: ANION GAP 5 MEQ/L (8-16); BLOOD UREA NITROGEN 20 MG/DL (7-18); CALCIUM LEVEL 8.9 MG/DL (8.8-10.2); CARBON DIOXIDE LEVEL 36 MEQ/L (21-32); CHLORIDE LEVEL 99 MEQ/L (98-107); CREATININE FOR GFR 0.65 MG/DL (0.55-1.02); GLOMERULAR FILTRATION RATE > 60.0 (>45); GLUCOSE, FASTING 153 MG/DL (80-110); POTASSIUM SERUM 4.2 MEQ/L (3.5-5.1); SODIUM LEVEL 140 MEQ/L (136-145)
[2016-09-25] MEDS: HumaLOG INSULIN (NovoLOG) PER UNIT SC SCH ×4 (08:30→21:00)
[2016-09-25] MEDS: ASPIRIN 81 MG ENTERIC TAB PO SCH (08:31)
[2016-09-25] MEDS: ACETAMINOPHEN TAB 650MG DOSE (2X325MG) PO PRN (08:31)
[2016-09-25] MEDS: ESCITALOPRAM OXALATE 10 MG TAB (LEXAPRO) PO SCH (08:31)
[2016-09-25] MEDS: FUROSEMIDE 20 MG TAB PO SCH (08:31)
[2016-09-25] MEDS: SPIRONOLACTONE 25 MG TAB PO SCH (08:31)
[2016-09-25] MEDS: OMEPRAZOLE 20 MG CAP PO SCH (08:31)
[2016-09-25] MEDS: busPIRone 5 MG TAB PO SCH ×2 (08:31→21:22)
[2016-09-25] MEDS: AUGMENTIN 875 MG TAB PO SCH ×2 (08:31→21:22)
[2016-09-25] MEDS: MAGNESIUM OXIDE 400 MG TAB (MAG-OX) PO SCH ×3 (08:32→21:24)
[2016-09-25] MEDS: CARVedilol 3.125 MG TAB PO SCH ×2 (08:32→21:24)
--- NOTE | 2016-09-25 11:54 | IPNPDOC ---
Date Seen The patient was seen on 09/25/16. Progress Note Hospitalist Progress Note Subjective: She states that she accidentally got a pretty good night sleep last night, therefore the current dose of Requip apparently is working well for her. Her only complaint today is that of fatigue. Physical therapy was in the room when we entered the room, however they had not even started her regimen yet today. It appears that she may have a slow course of recovery given her prolonged hospitalization. We will allow community mental health social worker, physical therapy, and occupational therapy worked together to agree on the best disposition plan for her Objective: General: Is sitting upright in her chair, she had just finished eating breakfast. She has a good appetite. HEENT: Head normocephalic, atraumatic, sclera are nonicteric. Hearing is grossly intact to conversation. Respiratory: Clear to auscultation bilaterally with no wheezes, rales, or rhonchi. Cardiovascular: Regular rate and rhythm, with no rubs, gallops, or murmur. Abdomen: Soft, nontender, nondistended, no hepatosplenomegaly appreciated. Bowel sounds present. Extremities: 2+ pulses in the radial and dorsalis pedis bilaterally. Trace pedal edema in bilateral lower extremities. Assessment & Plan: 1. Acute on chronic hypoxic hypercarbic respiratory failure, possibly secondary to chronic obstructive pulmonary disease (COPD) exacerbation due to underlying pulmonary infection. The patient is currently weaned off of bilevel positive airway pressure (BIPAP). Antibiotics were initially given. Oxygen supplementation. Pulse oximetry. Pulmicort, Spiriva, nebulizer treatments as ordered. 2. Acute renal insufficiency, likely secondary to dehydration, underlying infection. IV fluids initially provided. Currently, kidney function is back to baseline. Appreciate nephrology assistance. 3. Diarrhea. C difficile has been negative. Possible diverticulitis. Antibiotics have been given. Currently, resolved. Continue to follow. 4. Hypokalemia and hypomagnesemia, supplementation as ordered. Followup electrolytes. 5. Hypotension, resolved. 6. Anxiety. Supportive care. Continue current medications. 7. Type 2 diabetes. Insulin as per protocol. Resume home regimen once discharged. 8. Hypertension. Continue Norvasc, Coreg, losartan dosage increase, spironolactone, Lasix. 9. Depression. Continue current medications. 10. History of congestive heart failure (CHF). The patient is currently euvolemic. Lasix and spironolactone as ordered. Continue beta samantha. 11. History of smoking. Counseling provided. The patient recently quit smoking. Secondhand smoke from . 12. Obstructive sleep apnea. SANDY protocol while the patient is inpatient. Poor compliance with mask ventilation. As per technical assoc, outpatient followup with pulmonology for sleep study. Case discussed with Dr. Albarran. Patient and family services (PFS) consulted. 13. History of transient ischemic attack. Monitor blood pressure. Continue aspirin and blood pressure medication. 14. Restless leg syndrome. Appears to be significantly better on her current dose of Requip. She states that she slept quite well last night. 15. Deep vein thrombosis (DVT) prophylaxis. The patient is given heparin as an inpatient. Disposition: She does continue to struggle with physical therapy at this time. As she appears to be conflicted about whether or not she wishes to go home with services versus continue her custodial or rehabilitation. medical services assistant is currently getting in contact with the social studies department chair at [facility] who apparently is also been trying to establish some home health care for her as well. No changes were made to her medical regimen today, continue with discharge complaining per community mental health social worker and physical therapy and occupational therapy. My preceptor for this patient encounter was physically present in the building during the encounter and was fully available. As needed, all aspects of the patient interview, examination, medical decision making process, and medical care plan development were reviewed and approved by the preceptor. Preceptor is aware and concurs with the plan as stated in the body of this note and will attest to such by his/her cosignature. VS, I&O, 24H, Fishbone Vital Signs/I&O Vital Signs Date Time Temp Pulse Resp B/P Pulse Ox O2 Delivery O2 Flow Rate FiO2 09/25/16 08:34 Nasal Cannula 2.0 09/25/16 08:32 84 120/60 09/25/16 06:00 98.2 18 93 09/19/16 04:00 30 I&O- Last 24 Hours up to 6 AM 09/25/16 05:59 Intake Total 1320 ml Output Total 1750 ml Balance -430 ml Laboratory Data 24H LABS Laboratory Tests 2 09/24/16 11:55: Bedside Glucose (Misc Panel) 148H 09/24/16 16:57: Bedside Glucose (Misc Panel) 146H 09/24/16 21:09: Bedside Glucose (Misc Panel) 183H 09/25/16 06:54: Anion Gap 5L, Blood Urea Nitrogen 20H, Creatinine 0.65, Sodium Level 140, Potassium Level 4.2, Chloride Level 99, Carbon Dioxide Level 36H, Calcium Level 8.9, Glomerular Filtration Rate > 60.0 CBC/BMP Laboratory Tests 09/25/16 06:54 Calcium Level 8.9, Red Blood Count 3.26 L, Mean Corpuscular Volume 99.2 H, Mean Corpuscular Hemoglobin 31.4, Mean Corpuscular Hemoglobin Concent 31.6 L, Red Cell Distribution Width 14.6 H Microbiology Microbiology 09/18/16 Clostridium difficile (PCR) - Final, Complete GME ATTESTATION GME ATTESTATION My preceptor for this patient encounter was physically present in the building during the encounter and was fully available. As needed, all aspects of the patient interview, examination, medical decision making process, and medical care plan development were reviewed and approved by the preceptor. Preceptor is aware and concurs with the plan as stated in the body of this note and will attest to such by his/her cosignature. FANNIE JIANG DO Sep 25, 2016 11:54
[2016-09-25 14:00] VITALS: BP 122/64
[2016-09-25] MEDS: rOPINIRole 1MG TAB PO SCH (21:22)
[2016-09-25] MEDS: LOSARTAN 50 MG TAB PO SCH (21:23)
[2016-09-25] MEDS: ATORVASTATIN 10 MG TAB PO SCH (21:23)
[2016-09-25] MEDS: amLODIPine 10 MG TAB PO SCH (21:24)
[2016-09-25] MEDS: SERTRALINE HCL 25 MG TABLET PO SCH (21:24)
[2016-09-25 22:00] VITALS: BP 134/61
[2016-09-26] MEDS: IPRATROPIUM 0.5MG/ALBUTEROL 2.5MG INH SOL UD 3ML (DUONEB)(J7620) NEB SCH ×6 (04:00→23:56)
[2016-09-26 06:00] VITALS: BP 131/70
[2016-09-26] MEDS: HEPARIN SOD (PORCINE) 5000 UNITS/ML VIAL SC SCH ×3 (06:01→20:30)
[2016-09-26 07:06] LABS: MEAN CORPUSCULAR HEMOGLOBIN 31.4 pg (27.0-33.0); MEAN CORPUSCULAR HGB CONC 31.7 g/dl (32.0-36.5); MEAN CORPUSCULAR VOLUME 98.9 fl (80.0-96.0); RED CELL DISTRIBUTION WIDTH 14.5 % (11.5-14.5); WHITE BLOOD COUNT 12.5 K/mm3 (4.0-10.0)
[2016-09-26 07:14] LABS: ANION GAP 3 MEQ/L (8-16); BLOOD UREA NITROGEN 17 MG/DL (7-18); CALCIUM LEVEL 9.1 MG/DL (8.8-10.2); CARBON DIOXIDE LEVEL 39 MEQ/L (21-32); CHLORIDE LEVEL 98 MEQ/L (98-107); CREATININE FOR GFR 0.75 MG/DL (0.55-1.02); GLOMERULAR FILTRATION RATE > 60.0 (>45); GLUCOSE, FASTING 146 MG/DL (80-110); POTASSIUM SERUM 4.4 MEQ/L (3.5-5.1); SODIUM LEVEL 140 MEQ/L (136-145)
[2016-09-26] MEDS: BUDESONIDE 0.5 MG/2 ML INHALATION SUSPENSION INH SCH ×2 (07:25→20:58)
[2016-09-26] MEDS: TIOTROPIUM INHALER/CAPSULE (SPIRIVA) INH SCH (07:25)
[2016-09-26] MEDS: HumaLOG INSULIN (NovoLOG) PER UNIT SC SCH ×4 (08:28→20:31)
[2016-09-26 08:47] VITALS: BP 140/62
[2016-09-26 08:52] LABS: BASO # 0.1 K/mm3 (0.0-0.2); BASO % 0.8 % (0.0-1.0); EOS # 0.4 K/mm3 (0.0-0.50); EOS % 3.2 % (0.0-3.0); LARGE UNSTAINED CELL # 0.2 K/mm3 (0.0-0.4); LARGE UNSTAINED CELL % 1.5 % (0.0-4.0); LYMPH # 2.3 K/mm3 (1.5-4.5); LYMPH % 17.3 % (24.0-44.0); MEAN CORPUSCULAR HEMOGLOBIN 31.2 pg (27.0-33.0); MEAN CORPUSCULAR HGB CONC 31.4 g/dl (32.0-36.5); MEAN CORPUSCULAR VOLUME 99.4 fl (80.0-96.0); MONO # 0.7 K/mm3 (0.0-0.8); MONO % 5.5 % (0.0-5.0); NEUTROPHILS # 8.8 K/mm3 (1.8-7.7); NEUTROPHILS % 71.8 % (36.0-66.0); PLATELET COUNT, AUTOMATED 393 k/mm3 (150-450); RED CELL DISTRIBUTION WIDTH 14.7 % (11.5-14.5); WHITE BLOOD COUNT 12.2 K/mm3 (4.0-10.0)
[2016-09-26] MEDS: OMEPRAZOLE 20 MG CAP PO SCH (09:16)
[2016-09-26] MEDS: busPIRone 5 MG TAB PO SCH ×2 (09:17→20:29)
[2016-09-26] MEDS: AUGMENTIN 875 MG TAB PO SCH ×2 (09:17→20:29)
[2016-09-26] MEDS: ESCITALOPRAM OXALATE 10 MG TAB (LEXAPRO) PO SCH (09:17)
[2016-09-26] MEDS: MAGNESIUM OXIDE 400 MG TAB (MAG-OX) PO SCH ×3 (09:17→20:30)
[2016-09-26] MEDS: ASPIRIN 81 MG ENTERIC TAB PO SCH (09:17)
[2016-09-26] MEDS: SPIRONOLACTONE 25 MG TAB PO SCH (09:18)
[2016-09-26] MEDS: FUROSEMIDE 20 MG TAB PO SCH (09:18)
[2016-09-26] MEDS: CARVedilol 3.125 MG TAB PO SCH ×2 (09:19→20:31)
--- NOTE | 2016-09-26 11:05 | REP ---
PA and lateral chest: Comparisons are the portable chest dated 09/16/2016 and the portable chest of 04/07/2016. There are no infiltrates or effusions. There are no masses. There is chronic interstitial coarsening compatible with chronic lung disease. There is chronic cardiomegaly, unchanged. The alejandro, mediastinum and bony thorax are unchanged. The central pulmonary arteries are somewhat enlarged, unchanged, compatible with pulmonary hypertension. Impression: There are chronic stable findings. There are no acute infiltrates or effusions. No masses. Signed by Brett Anderson MD 09/26/2016 10:56 A
--- NOTE | 2016-09-26 16:46 | IPNPDOC ---
Date Seen The patient was seen on 09/26/16. Progress Note Hospitalist Progress Note Subjective: She was excited about the fact that she was provided a recliner yesterday. She states that she slept quite well last night. She had to get up and urinate multiple times throughout the night, therefore she did sleep part of the night in the bed and sleep part of the night in the recliner. She does admit to increased shortness of breath when lying down. She has had a cough for the past few days which has occasionally produce sputum. She denies any fevers, she admits to chills but denies rigors, she denies night sweats. She denies any chest discomfort, palpitations, she does admit to fatigue and she believes that her leg swelling is approximately same as it has been for the past few days. She continues to complain of shortness of breath, especially upon exertion. She denies any nausea, vomiting, constipation, or diarrhea, she does have some loose stools. She denies any abdominal pain. Central line was removed yesterday. Objective: General: Is sitting upright in her chair, awake, alert, oriented 3. HEENT: Head normocephalic, atraumatic, sclera are nonicteric. Hearing is grossly intact to conversation. Respiratory: She does have some minimal wheeze today, breath sounds are diminished. Cardiovascular: Regular rate and rhythm, with no rubs, gallops, or murmur. Abdomen: Soft, nontender, nondistended, no hepatosplenomegaly appreciated. Bowel sounds present. Extremities: 2+ pulses in the radial and dorsalis pedis bilaterally. Trace pedal edema in bilateral lower extremities. Assessment & Plan: 1. Leukocytosis. She has had a very mild a persistent leukocytosis, therefore just to be safe, blood cultures, a PA and lateral chest x-ray, a lactic acid, UA , and CBC with differential were ordered. She does have a mildly elevated lactic acid, but the remainder of the tests have come back unremarkable (blood cultures still pending), therefore suspect that her mildly elevated lactic acidosis is from her increased work of breathing. PICC line has already been removed, she denies any abdominal pain, and vital signs have remained within normal limits. 2. Acute on chronic hypoxic hypercarbic respiratory failure, possibly secondary to chronic obstructive pulmonary disease (COPD) exacerbation due to underlying pulmonary infection. Pulse oximetry. Pulmicort, Spiriva, nebulizer treatments as ordered. She continues on Augmentin which was started 09/19/2016. 3. Acute renal insufficiency. Currently, kidney function is back to baseline. Nephrology has now signed off. 4. Diarrhea. C difficile has been negative. Possible diverticulitis. Antibiotics have been given. Currently, resolved. Continue to follow. 5. Hypokalemia and hypomagnesemia, supplementation as ordered. Followup electrolytes. 6. Hypotension, resolved. 7. Anxiety. Supportive care. Continue current medications. 8. Type 2 diabetes. Insulin as per protocol. Resume home regimen once discharged. 9. Hypertension. Continue Norvasc, Coreg, losartan, spironolactone, Lasix. 10. Depression. Continue current medications. 10. History of congestive heart failure (CHF). The patient is currently euvolemic. Lasix and spironolactone as ordered. Continue beta samantha. 12. History of smoking. Counseling provided. The patient recently quit smoking. Secondhand smoke from . 13. Obstructive sleep apnea. SANDY protocol while the patient is inpatient. Poor compliance with mask ventilation. As per clinical sales consultant, outpatient followup with pulmonology for sleep study. Case discussed with Dr. Albarran. Patient and family services (PFS) consulted. 14. History of transient ischemic attack. Monitor blood pressure. Continue aspirin and blood pressure medication. 15. Restless leg syndrome. Appears to be significantly better on her current dose of Requip. She states that she slept quite well last night. 16. Deep vein thrombosis (DVT) prophylaxis. The patient is given heparin as an inpatient. Disposition: Disposition planning at this point, PFS continues to work diligently to find her an appropriate halfway facility, but it appears that they have been unable to find her a bed so far. Patient will continue to work with physical therapy as as well to help with her recovery. My preceptor for this patient encounter was physically present in the building during the encounter and was fully available. As needed, all aspects of the patient interview, examination, medical decision making process, and medical care plan development were reviewed and approved by the preceptor. Preceptor is aware and concurs with the plan as stated in the body of this note and will attest to such by his/her cosignature. VS, I&O, 24H, Fishbone Vital Signs/I&O Vital Signs Date Time Temp Pulse Resp B/P Pulse Ox O2 Delivery O2 Flow Rate FiO2 09/26/16 13:05 Nasal Cannula 2.0 09/26/16 08:47 97.7 77 18 140/62 90 I&O- Last 24 Hours up to 6 AM 09/26/16 06:00 Intake Total 0 ml Output Total 1200 ml Balance -1200 ml Laboratory Data 24H LABS Laboratory Tests 2 09/25/16 17:28: Bedside Glucose (Misc Panel) 134H 09/25/16 20:20: Bedside Glucose (Misc Panel) 183H 09/26/16 06:41: Anion Gap 3L, Blood Urea Nitrogen 17, Creatinine 0.75, Sodium Level 140, Potassium Level 4.4, Chloride Level 98, Carbon Dioxide Level 39H, Calcium Level 9.1, Glomerular Filtration Rate > 60.0 09/26/16 08:33: White Blood Count 12.2H, Red Blood Count 3.34L, Hemoglobin 10.4L, Hematocrit 33.2L, Mean Corpuscular Volume 99.4H, Mean Corpuscular Hemoglobin 31.2, Mean Corpuscular Hemoglobin Concent 31.4L, Red Cell Distribution Width 14.7H, Platelet Count 393, Neutrophils (%) (Auto) 71.8H, Lymphocytes (%) (Auto) 17.3L, Monocytes (%) (Auto) 5.5H, Eosinophils (%) (Auto) 3.2H, Basophils (%) (Auto) 0.8 , Neutrophils # (Auto) 8.8H, Lymphocytes # (Auto) 2.3, Monocytes # (Auto) 0.7, Eosinophils # (Auto) 0.4, Basophils # (Auto) 0.1, Lactic Acid Level 2.1*H, Large Unclassified Cells # 0.2, Large Unclassified Cells % 1.5 09/26/16 08:37: Urine Amorphous Sediment , Urine Appearance CLEAR, Urine Color STRAW, Urine pH 6.0, Urine Specific Blairs 1.009, Urine Protein NEGATIVE, Urine Glucose (UA) NEGATIVE, Urine Ketones NEGATIVE, Urine Urobilinogen 0.2, Urine Bilirubin NEGATIVE, Urine Leukocyte Esterase NEGATIVE, Urine Bacteria (Auto) NEGATIVE, Urine Blood NEGATIVE, Urine Calcium Carbonate Cryst(Auto) , Urine Calcium Oxalate Cryst (Auto) , Urine Calcium Phosphate Leigh (Auto) , Urine Cellular Casts , Urine Cystine Crystals , Urine Granular Casts (Auto) , Urine Hyaline Casts (Auto) 0, Urine Leucine Crystals , Urine Mucus (Auto) SMALL, Urine Nitrite NEGATIVE, Urine Oval Fat Bodies (Auto) , Urine RBC (Auto) 1, Urine Renal Epithelial Cells , Urine Sperm (Auto) , Urine Squamous Epithelial Cells 1 , Urine Transitional Epithelial Cells , Urine Trichomonas (Auto) , Urine Triple Phosphate Cryst (Auto) , Urine Tyrosine Crystals , Urine Uric Acid Crystals ( Auto) , Urine WBC (Auto) 3, Urine Waxy Casts (Auto) , Urine Yeast-Like Cells ( Auto) 09/26/16 11:33: Bedside Glucose (Misc Panel) 233H 09/26/16 13:02: Lactic Acid Followup at 4 Hours 1.0 CBC/BMP Laboratory Tests 09/26/16 06:41 Calcium Level 9.1, Red Blood Count 3.30 L, Mean Corpuscular Volume 98.9 H, Mean Corpuscular Hemoglobin 31.4, Mean Corpuscular Hemoglobin Concent 31.7 L, Red Cell Distribution Width 14.5 09/26/16 08:33 Red Blood Count 3.34 L, Mean Corpuscular Volume 99.4 H, Mean Corpuscular Hemoglobin 31.2, Mean Corpuscular Hemoglobin Concent 31.4 L, Red Cell Distribution Width 14.7 H, Neutrophils (%) (Auto) 71.8 H, Lymphocytes (%) (Auto ) 17.3 L, Monocytes (%) (Auto) 5.5 H, Eosinophils (%) (Auto) 3.2 H, Basophils (% ) (Auto) 0.8, Neutrophils # (Auto) 8.8 H, Lymphocytes # (Auto) 2.3, Monocytes # (Auto) 0.7, Eosinophils # (Auto) 0.4, Basophils # (Auto) 0.1 Microbiology Microbiology 09/26/16 Blood Culture, Received Pending 09/26/16 Blood Culture, Received Pending 09/18/16 Clostridium difficile (PCR) - Final, Complete FANNIE JIANG DO Sep 26, 2016 16:46
[2016-09-26] MEDS: ACETAMINOPHEN TAB 650MG DOSE (2X325MG) PO PRN (20:29)
[2016-09-26] MEDS: SERTRALINE HCL 25 MG TABLET PO SCH (20:30)
[2016-09-26] MEDS: amLODIPine 10 MG TAB PO SCH (20:30)
[2016-09-26] MEDS: rOPINIRole 1MG TAB PO SCH (20:30)
[2016-09-26] MEDS: ATORVASTATIN 10 MG TAB PO SCH (20:31)
[2016-09-26] MEDS: LOSARTAN 50 MG TAB PO SCH (20:31)
[2016-09-26 22:00] VITALS: BP 126/60
[2016-09-27] MEDS: IPRATROPIUM 0.5MG/ALBUTEROL 2.5MG INH SOL UD 3ML (DUONEB)(J7620) NEB SCH ×5 (03:33→19:36)
[2016-09-27 06:00] VITALS: BP 126/57
[2016-09-27] MEDS: HEPARIN SOD (PORCINE) 5000 UNITS/ML VIAL SC SCH ×3 (06:18→21:19)
[2016-09-27] MEDS: ACETAMINOPHEN TAB 650MG DOSE (2X325MG) PO PRN (06:22)
[2016-09-27 07:00] LABS: MEAN CORPUSCULAR HEMOGLOBIN 30.7 pg (27.0-33.0); MEAN CORPUSCULAR HGB CONC 30.8 g/dl (32.0-36.5); MEAN CORPUSCULAR VOLUME 99.8 fl (80.0-96.0); RED CELL DISTRIBUTION WIDTH 14.6 % (11.5-14.5)
[2016-09-27 07:10] LABS: ANION GAP 2 MEQ/L (8-16); BLOOD UREA NITROGEN 17 MG/DL (7-18); CALCIUM LEVEL 9.6 MG/DL (8.8-10.2); CARBON DIOXIDE LEVEL 39 MEQ/L (21-32); CHLORIDE LEVEL 98 MEQ/L (98-107); CREATININE FOR GFR 0.74 MG/DL (0.55-1.02); GLOMERULAR FILTRATION RATE > 60.0 (>45); GLUCOSE, FASTING 161 MG/DL (80-110); POTASSIUM SERUM 4.8 MEQ/L (3.5-5.1); SODIUM LEVEL 139 MEQ/L (136-145)
[2016-09-27] MEDS: BUDESONIDE 0.5 MG/2 ML INHALATION SUSPENSION INH SCH ×2 (07:28→19:36)
[2016-09-27] MEDS: TIOTROPIUM INHALER/CAPSULE (SPIRIVA) INH SCH (07:28)
[2016-09-27] MEDS: HumaLOG INSULIN (NovoLOG) PER UNIT SC SCH ×4 (08:22→21:00)
[2016-09-27 09:30] VITALS: BP 131/61
[2016-09-27] MEDS: CARVedilol 3.125 MG TAB PO SCH ×2 (09:50→21:20)
[2016-09-27] MEDS: FUROSEMIDE 20 MG TAB PO SCH (09:50)
[2016-09-27] MEDS: OMEPRAZOLE 20 MG CAP PO SCH (09:51)
[2016-09-27] MEDS: busPIRone 5 MG TAB PO SCH ×2 (09:51→21:20)
[2016-09-27] MEDS: SPIRONOLACTONE 25 MG TAB PO SCH (09:52)
[2016-09-27] MEDS: ASPIRIN 81 MG ENTERIC TAB PO SCH (09:52)
[2016-09-27] MEDS: ESCITALOPRAM OXALATE 10 MG TAB (LEXAPRO) PO SCH (09:52)
[2016-09-27] MEDS: MAGNESIUM OXIDE 400 MG TAB (MAG-OX) PO SCH ×3 (09:52→21:19)
--- NOTE | 2016-09-27 09:59 | IPNPDOC ---
Date Seen The patient was seen on 09/27/16. Progress Note Hospitalist Progress Note Subjective: Ms. Reno once again states that she slept fairly well last night, it appears that we have found an appropriate dose of Requip for her. She does continue to be fatigued and short of breath, however she does admit that she is feeling somewhat better today than she has in the previous few days. Otherwise , her only complaint is that of needing to urinate multiple times during the day and the night. Objective: General: Once again sitting upright in her chair, awake, alert, oriented 3. HEENT: Head normocephalic, atraumatic, sclera are nonicteric. Hearing is grossly intact to conversation. Respiratory: Breath sounds continued to be diminished, however her wheeze appears to be improved today. No rales or rhonchi. Cardiovascular: Regular rate and rhythm, with no rubs, gallops, or murmur. Abdomen: Soft, nontender, nondistended, no hepatosplenomegaly appreciated. Bowel sounds present. Extremities: 2+ pulses in the radial and dorsalis pedis bilaterally. Pedal edema has essentially resolved. Assessment & Plan: 1. Leukocytosis. Continues to be persistent. All of the investigations conducted yesterday have turned out to be unremarkable, and her repeat lactic acid was within normal limits. She has completed 7 days of Augmentin at this time, and 3 days of Zosyn prior to that. I will discontinue her antibiotics at this time. 2. Acute on chronic hypoxic hypercarbic respiratory failure, possibly secondary to chronic obstructive pulmonary disease (COPD) exacerbation due to underlying pulmonary infection. Pulse oximetry. Pulmicort, Spiriva, nebulizer treatments as ordered. 3. Acute renal insufficiency. Resolved. Nephrology has now signed off. 4. Diarrhea. Resolved C difficile has been negative. Possible diverticulitis. Antibiotics have now been discontinued. 5. Hypokalemia and hypomagnesemia, supplementation as needed. Followup electrolytes. 6. Hypotension, resolved. 7. Anxiety. Supportive care. Continue current medications. 8. Type 2 diabetes. Insulin as per protocol. Resume home regimen once discharged. 9. Hypertension. Continues to be within target range according to JNC 8 guidelines. Continue Norvasc, Coreg, losartan, spironolactone, Lasix. 10. Depression. Continue current medications. 10. History of congestive heart failure (CHF). The patient is continues to be euvolemic. Lasix and spironolactone as ordered. Continue beta samantha. 12. History of smoking. Counseling provided. The patient recently quit smoking. Secondhand smoke from . 13. Obstructive sleep apnea. SANDY protocol while the patient is inpatient. Poor compliance with mask ventilation. As per machine specialist, outpatient followup with pulmonology for sleep study. Case discussed with Dr. Albarran. Patient and family services (PFS) consulted. 14. History of transient ischemic attack. Monitor blood pressure. Continue aspirin and blood pressure medication. 15. Restless leg syndrome. We'll continue with current dose of Requip. 16. Deep vein thrombosis (DVT) prophylaxis. The patient is given heparin as an inpatient. Disposition: Continue with disposition planning per recommendations from PFS in physical therapy.. My preceptor for this patient encounter was physically present in the building during the encounter and was fully available. As needed, all aspects of the patient interview, examination, medical decision making process, and medical care plan development were reviewed and approved by the preceptor. Preceptor is aware and concurs with the plan as stated in the body of this note and will attest to such by his/her cosignature. VS, I&O, 24H, Fishbone Vital Signs/I&O Vital Signs Date Time Temp Pulse Resp B/P Pulse Ox O2 Delivery O2 Flow Rate FiO2 09/27/16 06:00 98.7 80 18 126/57 94 Room Air 09/26/16 22:00 2.0 I&O- Last 24 Hours up to 6 AM 09/27/16 06:00 Intake Total 930 ml Output Total 1500 ml Balance -570 ml Laboratory Data 24H LABS Laboratory Tests 2 09/26/16 11:33: Bedside Glucose (Misc Panel) 233H 09/26/16 13:02: Lactic Acid Followup at 4 Hours 1.0 09/26/16 17:24: Bedside Glucose (Misc Panel) 123H 09/26/16 19:52: Bedside Glucose (Misc Panel) 191H 09/27/16 06:39: Anion Gap 2L, Blood Urea Nitrogen 17, Creatinine 0.74, Sodium Level 139, Potassium Level 4.8, Chloride Level 98, Carbon Dioxide Level 39H, Calcium Level 9.6, Glomerular Filtration Rate > 60.0 CBC/BMP Laboratory Tests 09/27/16 06:39 Calcium Level 9.6, Red Blood Count 3.48 L, Mean Corpuscular Volume 99.8 H, Mean Corpuscular Hemoglobin 30.7, Mean Corpuscular Hemoglobin Concent 30.8 L, Red Cell Distribution Width 14.6 H Microbiology Microbiology 09/26/16 Blood Culture - Preliminary, Resulted No growth after 24 hours . All specim... 09/26/16 Blood Culture - Preliminary, Resulted No growth after 24 hours . All specim... 09/18/16 Clostridium difficile (PCR) - Final, Complete FANNIE JIANG DO Sep 27, 2016 09:59
[2016-09-27 14:00] VITALS: BP 128/66
[2016-09-27 20:45] VITALS: O2SAT 92
[2016-09-27] MEDS: SERTRALINE HCL 25 MG TABLET PO SCH (21:19)
[2016-09-27] MEDS: amLODIPine 10 MG TAB PO SCH (21:19)
[2016-09-27] MEDS: ATORVASTATIN 10 MG TAB PO SCH (21:20)
[2016-09-27] MEDS: LOSARTAN 50 MG TAB PO SCH (21:20)
[2016-09-27] MEDS: rOPINIRole 1MG TAB PO SCH (21:20)
[2016-09-27 22:00] VITALS: BP 140/63
[2016-09-28] MEDS: HEPARIN SOD (PORCINE) 5000 UNITS/ML VIAL SC SCH (05:14)
[2016-09-28 05:50] LABS: MEAN CORPUSCULAR HEMOGLOBIN 31.4 pg (27.0-33.0); MEAN CORPUSCULAR HGB CONC 31.7 g/dl (32.0-36.5); MEAN CORPUSCULAR VOLUME 99.2 fl (80.0-96.0); RED CELL DISTRIBUTION WIDTH 14.6 % (11.5-14.5); WHITE BLOOD COUNT 11.3 K/mm3 (4.0-10.0)
[2016-09-28 06:00] VITALS: BP 127/58
[2016-09-28 06:15] LABS: ANION GAP 7 MEQ/L (8-16); BLOOD UREA NITROGEN 19 MG/DL (7-18); CALCIUM LEVEL 9.3 MG/DL (8.8-10.2); CARBON DIOXIDE LEVEL 36 MEQ/L (21-32); CHLORIDE LEVEL 98 MEQ/L (98-107); CREATININE FOR GFR 0.72 MG/DL (0.55-1.02); GLOMERULAR FILTRATION RATE > 60.0 (>45); GLUCOSE, FASTING 144 MG/DL (80-110); POTASSIUM SERUM 4.2 MEQ/L (3.5-5.1); SODIUM LEVEL 141 MEQ/L (136-145)
[2016-09-28] MEDS: ACETAMINOPHEN TAB 650MG DOSE (2X325MG) PO PRN ×2 (06:18→21:42)
[2016-09-28] MEDS: BUDESONIDE 0.5 MG/2 ML INHALATION SUSPENSION INH SCH ×2 (07:12→18:25)
[2016-09-28] MEDS: IPRATROPIUM 0.5MG/ALBUTEROL 2.5MG INH SOL UD 3ML (DUONEB)(J7620) NEB SCH ×5 (07:12→23:30)
[2016-09-28] MEDS: TIOTROPIUM INHALER/CAPSULE (SPIRIVA) INH SCH (07:12)
[2016-09-28] MEDS: HumaLOG INSULIN (NovoLOG) PER UNIT SC SCH ×4 (08:40→21:00)
[2016-09-28] MEDS: ENOXAPARIN 40 MG/0.4 ML SYRINGE (J1650) SC SCH (08:40)
[2016-09-28] MEDS: MAGNESIUM OXIDE 400 MG TAB (MAG-OX) PO SCH ×3 (08:40→21:41)
[2016-09-28] MEDS: ASPIRIN 81 MG ENTERIC TAB PO SCH (08:40)
[2016-09-28] MEDS: busPIRone 5 MG TAB PO SCH ×2 (08:41→21:40)
[2016-09-28] MEDS: SPIRONOLACTONE 25 MG TAB PO SCH (08:41)
[2016-09-28] MEDS: FUROSEMIDE 20 MG TAB PO SCH (08:41)
[2016-09-28] MEDS: ESCITALOPRAM OXALATE 10 MG TAB (LEXAPRO) PO SCH (08:41)
[2016-09-28] MEDS: OMEPRAZOLE 20 MG CAP PO SCH (08:41)
[2016-09-28] MEDS: CARVedilol 3.125 MG TAB PO SCH ×2 (08:41→21:41)
--- NOTE | 2016-09-28 11:46 | IPNPDOC ---
Date Seen The patient was seen on 09/28/16. Progress Note Hospitalist Progress Note Subjective: Ms. Reno did have a little bit of a restless night last night, although she was able to fall asleep shortly after 1-2am. She also does have some minor shoulder discomfort/soreness which may be secondary to her using the walker during PT. I explained that she should probably take it easy today and rest. I will provide her with a K pad for comfort. Objective: General: Reclined in bed this morning, awake, alert, oriented 3. HEENT: Head normocephalic, atraumatic, sclera are nonicteric. Hearing is grossly intact to conversation. Respiratory: Breath sounds continued to be diminished, minimal expiratory wheeze noted. No rales or rhonchi. Cardiovascular: Regular rate and rhythm, with no rubs, gallops, or murmur. Abdomen: Soft, nontender, nondistended, no hepatosplenomegaly appreciated. Bowel sounds present. Extremities: 2+ pulses in the radial and dorsalis pedis bilaterally. Pedal edema has essentially resolved. Assessment & Plan: 1. Leukocytosis. Continues to be persistent. All of the investigations conducted yesterday have turned out to be unremarkable, and her repeat lactic acid was within normal limits. She has completed 7 days of Augmentin at this time, and 3 days of Zosyn prior to that. I will discontinue her antibiotics at this time. 2. Acute on chronic hypoxic hypercarbic respiratory failure, possibly secondary to chronic obstructive pulmonary disease (COPD) exacerbation due to underlying pulmonary infection. Pulse oximetry. Pulmicort, Spiriva, nebulizer treatments as ordered. 3. Acute renal insufficiency. Resolved. Nephrology has now signed off. 4. Diarrhea. Resolved C difficile has been negative. Possible diverticulitis. Antibiotics have now been discontinued. 5. Hypokalemia and hypomagnesemia, supplementation as needed. Followup electrolytes. 6. Hypotension, resolved. 7. Anxiety. Supportive care. Continue current medications. 8. Type 2 diabetes. Insulin as per protocol. Resume home regimen once discharged. 9. Hypertension. Continues to be within target range according to JNC 8 guidelines. Continue Norvasc, Coreg, losartan, spironolactone, Lasix. 10. Depression. Continue current medications. 10. History of congestive heart failure (CHF). The patient is continues to be euvolemic. Lasix and spironolactone as ordered. Continue beta samantha. 12. History of smoking. Counseling provided. The patient recently quit smoking. Secondhand smoke from . 13. Obstructive sleep apnea. SANDY protocol while the patient is inpatient. Poor compliance with mask ventilation. As per electroplating worker, outpatient followup with pulmonology for sleep study. Case discussed with Dr. Albarran. Patient and family services (PFS) consulted. 14. History of transient ischemic attack. Monitor blood pressure. Continue aspirin and blood pressure medication. 15. Restless leg syndrome. We'll continue with current dose of Requip. 16. Deep vein thrombosis (DVT) prophylaxis. Heparin has been discontinued, and she has been started on Lovenox as her renal function has improved, and she is beginning to get significant bruising in her abdomen. Disposition: Her heparin was changed to Lovenox as her creatinine has improved, and she has abdomen bruising, she was also provided with a K pad for her right shoulder discomfort. Otherwise no changes were made to her medical regimen today. Continue with disposition planning per recommendations from PFS and physical therapy. My preceptor for this patient encounter was physically present in the building during the encounter and was fully available. As needed, all aspects of the patient interview, examination, medical decision making process, and medical care plan development were reviewed and approved by the preceptor. Preceptor is aware and concurs with the plan as stated in the body of this note and will attest to such by his/her cosignature. VS, I&O, 24H, Fishbone Vital Signs/I&O Vital Signs Date Time Temp Pulse Resp B/P Pulse Ox O2 Delivery O2 Flow Rate FiO2 09/28/16 08:41 73 127/58 09/28/16 06:00 97.4 22 94 Nasal Cannula 2.0 I&O- Last 24 Hours up to 6 AM 09/28/16 06:00 Intake Total 1710 ml Output Total 1650 ml Balance 60 ml Laboratory Data 24H LABS Laboratory Tests 2 09/27/16 17:08: Bedside Glucose (Misc Panel) 174H 09/27/16 19:57: Bedside Glucose (Misc Panel) 226H 09/28/16 05:30: Anion Gap 7L, Blood Urea Nitrogen 19H, Creatinine 0.72, Sodium Level 141, Potassium Level 4.2, Chloride Level 98, Carbon Dioxide Level 36H, Calcium Level 9.3, Glomerular Filtration Rate > 60.0 CBC/BMP Laboratory Tests 09/28/16 05:30 Calcium Level 9.3, Red Blood Count 3.30 L, Mean Corpuscular Volume 99.2 H, Mean Corpuscular Hemoglobin 31.4, Mean Corpuscular Hemoglobin Concent 31.7 L, Red Cell Distribution Width 14.6 H Microbiology Microbiology 09/26/16 Blood Culture - Preliminary, Resulted No Growth after 48 hours. All Specime... 09/26/16 Blood Culture - Preliminary, Resulted No Growth after 48 hours. All Specime... 09/18/16 Clostridium difficile (PCR) - Final, Complete FANNIE JIANG DO Sep 28, 2016 11:45
[2016-09-28 14:00] VITALS: BP 131/60
[2016-09-28 20:00] VITALS: O2SAT 95
[2016-09-28] MEDS: SERTRALINE HCL 25 MG TABLET PO SCH (21:39)
[2016-09-28] MEDS: rOPINIRole 1MG TAB PO SCH (21:40)
[2016-09-28] MEDS: LOSARTAN 50 MG TAB PO SCH (21:40)
[2016-09-28] MEDS: amLODIPine 10 MG TAB PO SCH (21:41)
[2016-09-28] MEDS: ATORVASTATIN 10 MG TAB PO SCH (21:41)
[2016-09-28 22:00] VITALS: BP 131/60
[2016-09-29] MEDS: IPRATROPIUM 0.5MG/ALBUTEROL 2.5MG INH SOL UD 3ML (DUONEB)(J7620) NEB SCH ×5 (04:00→20:18)
[2016-09-29 06:00] VITALS: BP 147/66
[2016-09-29 06:07] LABS: MEAN CORPUSCULAR HEMOGLOBIN 31.2 pg (27.0-33.0); MEAN CORPUSCULAR HGB CONC 31.3 g/dl (32.0-36.5); MEAN CORPUSCULAR VOLUME 99.5 fl (80.0-96.0); RED CELL DISTRIBUTION WIDTH 14.6 % (11.5-14.5); WHITE BLOOD COUNT 12.8 K/mm3 (4.0-10.0)
[2016-09-29 06:21] LABS: ANION GAP 5 MEQ/L (8-16); BLOOD UREA NITROGEN 22 MG/DL (7-18); CALCIUM LEVEL 9.6 MG/DL (8.8-10.2); CARBON DIOXIDE LEVEL 38 MEQ/L (21-32); CHLORIDE LEVEL 96 MEQ/L (98-107); CREATININE FOR GFR 0.77 MG/DL (0.55-1.02); GLOMERULAR FILTRATION RATE > 60.0 (>45); GLUCOSE, FASTING 151 MG/DL (80-110); SODIUM LEVEL 139 MEQ/L (136-145)
[2016-09-29] MEDS: TIOTROPIUM INHALER/CAPSULE (SPIRIVA) INH SCH (07:17)
[2016-09-29] MEDS: BUDESONIDE 0.5 MG/2 ML INHALATION SUSPENSION INH SCH ×2 (07:17→20:18)
[2016-09-29] MEDS: SPIRONOLACTONE 25 MG TAB PO SCH (08:55)
[2016-09-29] MEDS: OMEPRAZOLE 20 MG CAP PO SCH (08:55)
[2016-09-29] MEDS: FUROSEMIDE 20 MG TAB PO SCH (08:55)
[2016-09-29] MEDS: CARVedilol 3.125 MG TAB PO SCH ×2 (08:55→22:44)
[2016-09-29] MEDS: HumaLOG INSULIN (NovoLOG) PER UNIT SC SCH ×4 (08:56→22:47)
[2016-09-29] MEDS: busPIRone 5 MG TAB PO SCH ×2 (08:56→22:43)
[2016-09-29] MEDS: ESCITALOPRAM OXALATE 10 MG TAB (LEXAPRO) PO SCH (08:56)
[2016-09-29] MEDS: ASPIRIN 81 MG ENTERIC TAB PO SCH (08:56)
[2016-09-29] MEDS: MAGNESIUM OXIDE 400 MG TAB (MAG-OX) PO SCH ×3 (08:56→22:46)
[2016-09-29] MEDS: ENOXAPARIN 40 MG/0.4 ML SYRINGE (J1650) SC SCH (08:57)
[2016-09-29 14:00] VITALS: BP 147/73
[2016-09-29 22:00] VITALS: BP 140/63
[2016-09-29] MEDS: LOSARTAN 50 MG TAB PO SCH (22:46)
[2016-09-29] MEDS: amLODIPine 10 MG TAB PO SCH (22:46)
[2016-09-29] MEDS: rOPINIRole 1MG TAB PO SCH (22:47)
[2016-09-29] MEDS: ATORVASTATIN 10 MG TAB PO SCH (22:47)
[2016-09-29] MEDS: SERTRALINE HCL 25 MG TABLET PO SCH (22:47)
[2016-09-29] MEDS: ACETAMINOPHEN TAB 650MG DOSE (2X325MG) PO PRN (22:59)
[2016-09-29] MEDS: traZODone 25MG PER 1/2 TABLET PO PRN (23:20)
[2016-09-30] MEDS: IPRATROPIUM 0.5MG/ALBUTEROL 2.5MG INH SOL UD 3ML (DUONEB)(J7620) NEB SCH ×6 (03:05→21:13)
[2016-09-30 06:00] VITALS: BP 131/60
[2016-09-30] MEDS: ACETAMINOPHEN TAB 650MG DOSE (2X325MG) PO PRN ×2 (06:55→12:30)
[2016-09-30 07:11] LABS: MEAN CORPUSCULAR HGB CONC 31.5 g/dl (32.0-36.5); MEAN CORPUSCULAR VOLUME 98.2 fl (80.0-96.0); RED CELL DISTRIBUTION WIDTH 14.3 % (11.5-14.5); WHITE BLOOD COUNT 12.8 K/mm3 (4.0-10.0)
[2016-09-30 07:25] LABS: ANION GAP 4 MEQ/L (8-16); BLOOD UREA NITROGEN 22 MG/DL (7-18); CALCIUM LEVEL 9.4 MG/DL (8.8-10.2); CARBON DIOXIDE LEVEL 40 MEQ/L (21-32); CHLORIDE LEVEL 95 MEQ/L (98-107); CREATININE FOR GFR 0.84 MG/DL (0.55-1.02); GLOMERULAR FILTRATION RATE > 60.0 (>45); GLUCOSE, FASTING 163 MG/DL (80-110); POTASSIUM SERUM 4.3 MEQ/L (3.5-5.1); SODIUM LEVEL 139 MEQ/L (136-145)
[2016-09-30] MEDS: HumaLOG INSULIN (NovoLOG) PER UNIT SC SCH ×4 (07:53→21:00)
[2016-09-30] MEDS: OMEPRAZOLE 20 MG CAP PO SCH (07:53)
[2016-09-30] MEDS: ASPIRIN 81 MG ENTERIC TAB PO SCH (07:53)
[2016-09-30] MEDS: ENOXAPARIN 40 MG/0.4 ML SYRINGE (J1650) SC SCH (07:53)
[2016-09-30] MEDS: FUROSEMIDE 20 MG TAB PO SCH (07:54)
[2016-09-30] MEDS: SPIRONOLACTONE 25 MG TAB PO SCH (07:54)
[2016-09-30] MEDS: MAGNESIUM OXIDE 400 MG TAB (MAG-OX) PO SCH ×3 (07:54→23:32)
[2016-09-30] MEDS: busPIRone 5 MG TAB PO SCH ×2 (07:54→23:34)
[2016-09-30] MEDS: ESCITALOPRAM OXALATE 10 MG TAB (LEXAPRO) PO SCH (07:54)
[2016-09-30] MEDS: CARVedilol 3.125 MG TAB PO SCH ×2 (07:55→23:31)
[2016-09-30] MEDS: BUDESONIDE 0.5 MG/2 ML INHALATION SUSPENSION INH SCH ×2 (08:37→21:13)
[2016-09-30] MEDS: TIOTROPIUM INHALER/CAPSULE (SPIRIVA) INH SCH (08:37)
[2016-09-30 14:00] VITALS: BP 156/72
[2016-09-30 22:00] VITALS: BP 128/61
[2016-09-30] MEDS: LOSARTAN 50 MG TAB PO SCH (23:29)
[2016-09-30] MEDS: traZODone 25MG PER 1/2 TABLET PO PRN (23:31)
[2016-09-30] MEDS: amLODIPine 10 MG TAB PO SCH (23:33)
[2016-09-30] MEDS: SERTRALINE HCL 25 MG TABLET PO SCH (23:33)
[2016-09-30] MEDS: ATORVASTATIN 10 MG TAB PO SCH (23:33)
[2016-09-30] MEDS: rOPINIRole 1MG TAB PO SCH (23:34)
[2016-10-01] MEDS: IPRATROPIUM 0.5MG/ALBUTEROL 2.5MG INH SOL UD 3ML (DUONEB)(J7620) NEB SCH ×6 (03:32→20:50)
[2016-10-01 06:00] VITALS: BP 121/58
[2016-10-01 07:04] LABS: MEAN CORPUSCULAR HEMOGLOBIN 30.9 pg (27.0-33.0); MEAN CORPUSCULAR HGB CONC 31.6 g/dl (32.0-36.5); MEAN CORPUSCULAR VOLUME 97.8 fl (80.0-96.0); RED CELL DISTRIBUTION WIDTH 14.2 % (11.5-14.5); WHITE BLOOD COUNT 11.2 K/mm3 (4.0-10.0)
[2016-10-01 07:21] LABS: ANION GAP 3 MEQ/L (8-16); BLOOD UREA NITROGEN 22 MG/DL (7-18); CALCIUM LEVEL 9.4 MG/DL (8.8-10.2); CARBON DIOXIDE LEVEL 39 MEQ/L (21-32); CHLORIDE LEVEL 96 MEQ/L (98-107); CREATININE FOR GFR 0.79 MG/DL (0.55-1.02); GLOMERULAR FILTRATION RATE > 60.0 (>45); GLUCOSE, FASTING 155 MG/DL (80-110); POTASSIUM SERUM 4.6 MEQ/L (3.5-5.1); SODIUM LEVEL 138 MEQ/L (136-145)
[2016-10-01] MEDS: HumaLOG INSULIN (NovoLOG) PER UNIT SC SCH ×4 (08:25→21:00)
[2016-10-01] MEDS: TIOTROPIUM INHALER/CAPSULE (SPIRIVA) INH SCH (08:26)
[2016-10-01] MEDS: BUDESONIDE 0.5 MG/2 ML INHALATION SUSPENSION INH SCH ×2 (08:26→21:15)
[2016-10-01] MEDS: ENOXAPARIN 40 MG/0.4 ML SYRINGE (J1650) SC SCH (08:30)
[2016-10-01] MEDS: OMEPRAZOLE 20 MG CAP PO SCH (08:32)
[2016-10-01] MEDS: MAGNESIUM OXIDE 400 MG TAB (MAG-OX) PO SCH ×3 (08:32→23:18)
[2016-10-01] MEDS: FUROSEMIDE 20 MG TAB PO SCH (08:33)
[2016-10-01] MEDS: ESCITALOPRAM OXALATE 10 MG TAB (LEXAPRO) PO SCH (08:33)
[2016-10-01] MEDS: ASPIRIN 81 MG ENTERIC TAB PO SCH (08:33)
[2016-10-01] MEDS: busPIRone 5 MG TAB PO SCH ×2 (08:34→23:17)
[2016-10-01] MEDS: SPIRONOLACTONE 25 MG TAB PO SCH (08:34)
[2016-10-01] MEDS: CARVedilol 3.125 MG TAB PO SCH ×2 (08:34→23:18)
--- NOTE | 2016-10-01 12:55 | IPN ---
DATE OF SERVICE: 10/01/2016 A 71-year-old female seen at bedside. Resting comfortably. She denies any specific complaints at this time. No chest pain, shortness of breath, productive sputum. She is tolerating meals. OBJECTIVE: Temperature is 97.5, pulse 81, respiratory rate 19, blood pressure (BP) 121/58, SpO2 94% on 2 liters. General: The patient appears to be in no acute distress. She is alert, pleasant. HEENT: Unremarkable. Lungs: Clear. Heart: Regular rate and rhythm. Abdomen: Soft. Extremities: No edema. No calf tenderness. LABORATORY DATA: White count 11.2, hemoglobin 10.6, platelets 331,000. Sodium 138, potassium 4.6, chloride 96, bicarbonate 39, anion gap 3, BUN is 22, creatinine 0.79, glucose 155. Blood cultures negative times two for 5 days. Clostridium (C) difficile was negative previously. ASSESSMENT AND PLAN: 1. Leukocytosis showing a downward trend. Will continue to follow. No signs of infection. She did previously complete Augmentin after being on 3 days of Zosyn prior to that. 2. Acute on chronic hypoxic hypercarbic respiratory failure, multifactorial. Possible underlying respiratory infection, history of chronic obstructive pulmonary disease (COPD). Continue with pulse oximetry, Pulmicort, Spiriva, and nebulizer treatment as ordered. She does questionably have a history of obstructive sleep apnea and will need to have followup arranged as an outpatient for a possible sleep study. Will discuss with the nurse, as well as pulmonology office, to see how to best facilitate this. 3. Acute renal insufficiency, resolved. 4. Diarrhea, resolved. 5. Hypokalemia, hypomagnesemia, supplemented and will continue to follow electrolytes. 6. Hypotension, stable. 7. Anxiety. Supportive care. Continue with current medications. 8. Diabetes. Continue insulin per [facility] protocol and fingersticks. She can resume her home regimen once she is discharged. 9. Hypertension. Continue Norvasc, Coreg, losartan, spironolactone, and Lasix as outlined previously. 10. Depression. Stable on current medications. No suicidal ideation. No audiovisual hallucinations. 11. History of congestive heart failure (CHF). She appears to be compensated. Continue with Lasix, spironolactone, as well as beta samantha. 12. History of smoking. Counseling provided. Encourage smoking cessation. 13. Obstructive sleep apnea with questionable compliance. Again, will need pulmonary followup and possible sleep study. 14. Transient ischemic attack (TIA) by history. No current symptoms. 15. Restless legs syndrome. Doing well on Requip. 16. Deep venous thrombosis (DVT) prophylaxis. Continue on Lovenox. DISPOSITION: Patient and family services (PFS) and physical therapy are on board. She does not appear to be at a good stable baseline from a musculoskeletal standpoint. She does have some generalized weakness. Will need some ongoing physical therapy and perhaps consider for subacute rehabilitation. Again, appreciate physical therapy and PFS input regarding her discharge planning.
[2016-10-01 14:00] VITALS: BP 162/70
[2016-10-01 22:00] VITALS: BP 125/60
[2016-10-01] MEDS: LOSARTAN 50 MG TAB PO SCH (23:16)
[2016-10-01] MEDS: rOPINIRole 1MG TAB PO SCH (23:18)
[2016-10-01] MEDS: amLODIPine 10 MG TAB PO SCH (23:18)
[2016-10-01] MEDS: SERTRALINE HCL 25 MG TABLET PO SCH (23:19)
[2016-10-01] MEDS: ATORVASTATIN 10 MG TAB PO SCH (23:19)
[2016-10-01] MEDS: traZODone 25MG PER 1/2 TABLET PO PRN (23:27)
[2016-10-02] MEDS: IPRATROPIUM 0.5MG/ALBUTEROL 2.5MG INH SOL UD 3ML (DUONEB)(J7620) NEB SCH ×6 (01:14→20:33)
[2016-10-02 06:00] VITALS: BP 140/52
[2016-10-02] MEDS: BUDESONIDE 0.5 MG/2 ML INHALATION SUSPENSION INH SCH ×2 (07:15→20:33)
[2016-10-02] MEDS: TIOTROPIUM INHALER/CAPSULE (SPIRIVA) INH SCH (07:15)
[2016-10-02 07:24] LABS: MEAN CORPUSCULAR HEMOGLOBIN 31.1 pg (27.0-33.0); MEAN CORPUSCULAR HGB CONC 31.6 g/dl (32.0-36.5); MEAN CORPUSCULAR VOLUME 98.3 fl (80.0-96.0); RED CELL DISTRIBUTION WIDTH 14.3 % (11.5-14.5)
[2016-10-02 07:51] LABS: ANION GAP 6 MEQ/L (8-16); BLOOD UREA NITROGEN 24 MG/DL (7-18); CARBON DIOXIDE LEVEL 37 MEQ/L (21-32); CHLORIDE LEVEL 96 MEQ/L (98-107); CREATININE FOR GFR 0.85 MG/DL (0.55-1.02); GLOMERULAR FILTRATION RATE > 60.0 (>45); GLUCOSE, FASTING 164 MG/DL (80-110); POTASSIUM SERUM 4.6 MEQ/L (3.5-5.1); SODIUM LEVEL 139 MEQ/L (136-145)
[2016-10-02] MEDS: OMEPRAZOLE 20 MG CAP PO SCH (08:17)
[2016-10-02] MEDS: ACETAMINOPHEN TAB 650MG DOSE (2X325MG) PO PRN (08:17)
[2016-10-02] MEDS: HumaLOG INSULIN (NovoLOG) PER UNIT SC SCH ×4 (08:17→21:00)
[2016-10-02] MEDS: ENOXAPARIN 40 MG/0.4 ML SYRINGE (J1650) SC SCH (08:17)
[2016-10-02] MEDS: MAGNESIUM OXIDE 400 MG TAB (MAG-OX) PO SCH ×3 (08:18→21:11)
[2016-10-02] MEDS: SPIRONOLACTONE 25 MG TAB PO SCH (08:18)
[2016-10-02] MEDS: ASPIRIN 81 MG ENTERIC TAB PO SCH (08:18)
[2016-10-02] MEDS: FUROSEMIDE 20 MG TAB PO SCH (08:18)
[2016-10-02] MEDS: ESCITALOPRAM OXALATE 10 MG TAB (LEXAPRO) PO SCH (08:18)
[2016-10-02] MEDS: CARVedilol 3.125 MG TAB PO SCH ×2 (08:18→21:14)
[2016-10-02] MEDS: busPIRone 5 MG TAB PO SCH ×2 (08:18→21:10)
[2016-10-02 14:00] VITALS: BP 155/69
--- NOTE | 2016-10-02 14:41 | IPN ---
DATE: 10/02/2016 71-year-old female seen at bedside. No overnight issues reported. She is resting comfortably. No chest pain, shortness of breath. No nausea or vomiting. No abdominal pain. OBJECTIVE: Temperature is 96.8, pulse 79, respiratory rate 18, blood pressure 140/52, SpO2 is 94% on 2 liters. GENERAL: The patient appears to be in no acute distress. She is pleasant. HEENT: Unremarkable. LUNGS: Clear. HEART: Regular rate and rhythm. ABDOMEN: Obese, soft, nontender, nondistended. Positive bowel sounds. No masses or rebound. EXTREMITIES: Some trace edema. White count 12, hemoglobin 10.3, platelets 316,000. Sodium 139, potassium 4.6, chloride 96, bicarbonate 37, anion gap 6, BUN 24, creatinine 0.84, glucose is 164. Calcium 9.0, magnesium 2.0. ASSESSMENT AND PLAN: 1. Leukocytosis, showing downward trend. She appears to be doing well. Previously on Augmentin, has been discontinued. 2. Acute on chronic hypoxic, hypercarbic respiratory failure, multifactorial. Likely underlying history of chronic obstructive pulmonary disease (COPD) and possibly untreated sleep apnea. We will continue with nebulizers, Pulmicort, Spiriva. Discussed the case with pulmonology. She does not have the availability of doing inpatient sleep study and would likely need to be established as an outpatient to have that scheduled and to further facilitate possible for home continuous positive airway pressure (CPAP). 3. Acute renal insufficiency, resolved. 4. Diarrhea, resolved. 5. Hypokalemia, hypomagnesemia. Supplemented and has resolved. We will continue to follow electrolytes. 6. Hypotension, resolved. 7. Anxiety. Supportive care. Continue current medications. 8. Diabetes. Continue fingersticks before food and nightly with sliding scale coverage as needed. 9. Hypertension. Continue on Norvasc, Coreg, Losartan, spironolactone, Lasix as outlined previously. 10. Depression. Doing well on current medications. No suicidal ideation. No audiovisual hallucinations. 11. History of congestive heart failure (CHF). She appears to be compensated. Continue with Lasix, spironolactone, as well as beta samantha. 12. History of smoking. Encourage cessation. Counseling provided. 13. Obstructive sleep apnea is suspected with poor medical compliance. She will need outpatient followup. 14. Transient ischemic attack by history. No current symptoms. 15. Restless leg syndrome. Doing well on Requip. 16. Deconditioning. She continues to work with physical therapy (PT) and we do need to determine whether or not she is a candidate for subacute rehabilitation. 17. DEEP VEIN THROMBOSIS (DVT) prophylaxis with Lovenox. DISPOSITION: As outlined. Currently, patient and family services (PFS) and physical therapy (PT) are looking at her as a possible placement for subacute rehabilitation. JACKIE
[2016-10-02] MEDS: ATORVASTATIN 10 MG TAB PO SCH (21:10)
[2016-10-02] MEDS: rOPINIRole 1MG TAB PO SCH (21:10)
[2016-10-02] MEDS: SERTRALINE HCL 25 MG TABLET PO SCH (21:10)
[2016-10-02] MEDS: LOSARTAN 50 MG TAB PO SCH (21:13)
[2016-10-02] MEDS: amLODIPine 10 MG TAB PO SCH (21:14)
[2016-10-02 22:00] VITALS: BP 138/70
[2016-10-02] MEDS: traZODone 25MG PER 1/2 TABLET PO PRN (23:11)
[2016-10-03] MEDS: IPRATROPIUM 0.5MG/ALBUTEROL 2.5MG INH SOL UD 3ML (DUONEB)(J7620) NEB SCH ×7 (04:00→23:49)
[2016-10-03 06:00] VITALS: BP 140/65
[2016-10-03 07:07] LABS: MEAN CORPUSCULAR HEMOGLOBIN 30.9 pg (27.0-33.0); MEAN CORPUSCULAR HGB CONC 31.9 g/dl (32.0-36.5); RED CELL DISTRIBUTION WIDTH 14.2 % (11.5-14.5); WHITE BLOOD COUNT 9.6 K/mm3 (4.0-10.0)
[2016-10-03 07:13] LABS: ANION GAP 4 MEQ/L (8-16); BLOOD UREA NITROGEN 21 MG/DL (7-18); CALCIUM LEVEL 9.5 MG/DL (8.8-10.2); CARBON DIOXIDE LEVEL 39 MEQ/L (21-32); CHLORIDE LEVEL 97 MEQ/L (98-107); CREATININE FOR GFR 0.76 MG/DL (0.55-1.02); GLOMERULAR FILTRATION RATE > 60.0 (>45); GLUCOSE, FASTING 153 MG/DL (80-110); POTASSIUM SERUM 4.7 MEQ/L (3.5-5.1); SODIUM LEVEL 140 MEQ/L (136-145)
[2016-10-03] MEDS: TIOTROPIUM INHALER/CAPSULE (SPIRIVA) INH SCH (07:22)
[2016-10-03] MEDS: BUDESONIDE 0.5 MG/2 ML INHALATION SUSPENSION INH SCH ×2 (07:22→20:07)
[2016-10-03] MEDS: ACETAMINOPHEN TAB 650MG DOSE (2X325MG) PO PRN ×2 (07:25→17:14)
[2016-10-03] MEDS: HumaLOG INSULIN (NovoLOG) PER UNIT SC SCH ×4 (07:25→21:00)
[2016-10-03] MEDS: ESCITALOPRAM OXALATE 10 MG TAB (LEXAPRO) PO SCH (08:49)
[2016-10-03] MEDS: busPIRone 5 MG TAB PO SCH ×2 (08:49→21:04)
[2016-10-03] MEDS: CARVedilol 3.125 MG TAB PO SCH ×2 (08:49→21:16)
[2016-10-03] MEDS: ASPIRIN 81 MG ENTERIC TAB PO SCH (08:50)
[2016-10-03] MEDS: MAGNESIUM OXIDE 400 MG TAB (MAG-OX) PO SCH ×3 (08:50→21:04)
[2016-10-03] MEDS: FUROSEMIDE 20 MG TAB PO SCH (08:50)
[2016-10-03] MEDS: OMEPRAZOLE 20 MG CAP PO SCH (08:51)
[2016-10-03] MEDS: SPIRONOLACTONE 25 MG TAB PO SCH (08:51)
[2016-10-03] MEDS: ENOXAPARIN 40 MG/0.4 ML SYRINGE (J1650) SC SCH (08:52)
[2016-10-03 09:15] VITALS: BP 142/68
[2016-10-03 14:00] VITALS: BP 140/64
[2016-10-03] MEDS: rOPINIRole 1MG TAB PO SCH (21:04)
[2016-10-03] MEDS: ATORVASTATIN 10 MG TAB PO SCH (21:07)
[2016-10-03] MEDS: traZODone 25MG PER 1/2 TABLET PO PRN (21:07)
[2016-10-03] MEDS: SERTRALINE HCL 25 MG TABLET PO SCH (21:07)
[2016-10-03] MEDS: amLODIPine 10 MG TAB PO SCH (21:17)
[2016-10-03] MEDS: LOSARTAN 50 MG TAB PO SCH (21:17)
[2016-10-03 22:00] VITALS: BP 113/58
[2016-10-04] MEDS: IPRATROPIUM 0.5MG/ALBUTEROL 2.5MG INH SOL UD 3ML (DUONEB)(J7620) NEB SCH ×6 (04:00→23:31)
[2016-10-04 06:00] VITALS: BP 116/56
[2016-10-04 06:56] LABS: MEAN CORPUSCULAR HEMOGLOBIN 30.9 pg (27.0-33.0); MEAN CORPUSCULAR HGB CONC 31.7 g/dl (32.0-36.5); MEAN CORPUSCULAR VOLUME 97.3 fl (80.0-96.0); RED CELL DISTRIBUTION WIDTH 14.3 % (11.5-14.5); WHITE BLOOD COUNT 9.3 K/mm3 (4.0-10.0)
[2016-10-04 07:06] LABS: ANION GAP 5 MEQ/L (8-16); BLOOD UREA NITROGEN 17 MG/DL (7-18); CALCIUM LEVEL 9.1 MG/DL (8.8-10.2); CARBON DIOXIDE LEVEL 37 MEQ/L (21-32); CHLORIDE LEVEL 97 MEQ/L (98-107); CREATININE FOR GFR 0.72 MG/DL (0.55-1.02); GLOMERULAR FILTRATION RATE > 60.0 (>45); GLUCOSE, FASTING 134 MG/DL (80-110); SODIUM LEVEL 139 MEQ/L (136-145)
[2016-10-04] MEDS: ENOXAPARIN 40 MG/0.4 ML SYRINGE (J1650) SC SCH (08:28)
[2016-10-04] MEDS: busPIRone 5 MG TAB PO SCH ×2 (08:28→21:12)
[2016-10-04] MEDS: HumaLOG INSULIN (NovoLOG) PER UNIT SC SCH ×4 (08:28→21:00)
[2016-10-04] MEDS: ACETAMINOPHEN TAB 650MG DOSE (2X325MG) PO PRN ×2 (08:29→21:13)
[2016-10-04] MEDS: SPIRONOLACTONE 25 MG TAB PO SCH (08:29)
[2016-10-04] MEDS: MAGNESIUM OXIDE 400 MG TAB (MAG-OX) PO SCH ×3 (08:29→21:12)
[2016-10-04] MEDS: OMEPRAZOLE 20 MG CAP PO SCH (08:29)
[2016-10-04] MEDS: ESCITALOPRAM OXALATE 10 MG TAB (LEXAPRO) PO SCH (08:29)
[2016-10-04] MEDS: ASPIRIN 81 MG ENTERIC TAB PO SCH (08:30)
[2016-10-04] MEDS: FUROSEMIDE 20 MG TAB PO SCH (08:30)
[2016-10-04] MEDS: CARVedilol 3.125 MG TAB PO SCH ×2 (08:30→21:12)
[2016-10-04] MEDS: BUDESONIDE 0.5 MG/2 ML INHALATION SUSPENSION INH SCH ×2 (08:39→20:38)
[2016-10-04] MEDS: TIOTROPIUM INHALER/CAPSULE (SPIRIVA) INH SCH (08:39)
[2016-10-04 14:00] VITALS: BP 137/61
--- NOTE | 2016-10-04 16:07 | IPN ---
DATE: 10/04/2016 SUBJECTIVE: A 71-year-old female seen at bedside resting comfortably. She continues to have some desaturations and using her bilevel positive airway pressure (BiPAP) intermittently. She denies chest pain, nausea, vomiting. OBJECTIVE: VITAL SIGNS: Temperature is 97, pulse 73, respiratory rate 17, blood pressure 116/56, SPO2 is 93% on two liters. GENERAL: The patient appears to be in no acute distress, alert and oriented. HEENT: Unremarkable. LUNGS: Clear with diminished bibasilar breath sounds. HEART: Regular rate and rhythm. ABDOMEN: Soft, nontender, nondistended. Positive bowel sounds. No masses, no rebound. EXTREMITIES: No edema. No calf tenderness. LABORATORY DATA: White count is 9.3, hemoglobin 10.2, platelets 277. Sodium 139, potassium 4.0, chloride 97, bicarb 37, anion gap 5, BUN 17, creatinine 0.72, glucose 134. ASSESSMENT/PLAN: 1. Leukocytosis downward trend. Has completed antibiotics. 2. Chronic hypoxic hypercarbic respiratory failure multifactorial, underlying possibly chronic obstructive pulmonary disease (COPD) as well as of obstructive sleep apnea. She has been using intermittent BiPAP on the floor. My concern is that she has undiagnosed sleep apnea. Considering this along with her COPD, will continue with Rene and I would like to try to see if we qualify her for a Trilogy for home and then as an outpatient, she could be tested for a sleep study. 3. Acute renal insufficiency resolved. 4. Diarrhea resolved. 5. Hypokalemia, hypomagnesemia, resolved. 6. Hypotension resolved. 7. Anxiety. Continue supportive care. 8. Diabetes. Continue fingersticks, sliding scale coverage. 9. Hypertension, Norvasc, Coreg, losartan spironolactone, Lasix as outlined. 10. Depression doing well with current medications. 11. History of congestive heart failure (CHF). She appears to be compensated on current medications. 12. History of smoking. Encourage smoking cessation, counseling provided 13. Suspected obstructive sleep apnea as outlined above. 14. Transient ischemic attack (TIA) by history. No current issues. 15. Restless leg syndrome, doing well on Requip. 16. Deconditioning. Working with physical therapy. 17. Deep venous thrombosis (DVT) prophylaxis with Lovenox. DISPOSITION: She does not appear to be safe for home discharge. We will continue with physical therapy. Patient and family services (PFS) is on board, and we will see if we can qualify her for a Trilogy to help her out with her shortness of breath issues.
[2016-10-04] MEDS: rOPINIRole 1MG TAB PO SCH (21:10)
[2016-10-04] MEDS: SERTRALINE HCL 25 MG TABLET PO SCH (21:10)
[2016-10-04] MEDS: ATORVASTATIN 10 MG TAB PO SCH (21:10)
[2016-10-04] MEDS: traZODone 25MG PER 1/2 TABLET PO PRN (21:10)
[2016-10-04] MEDS: LOSARTAN 50 MG TAB PO SCH (21:11)
[2016-10-04] MEDS: amLODIPine 10 MG TAB PO SCH (21:12)
[2016-10-04 22:00] VITALS: BP 139/62
[2016-10-05] MEDS: IPRATROPIUM 0.5MG/ALBUTEROL 2.5MG INH SOL UD 3ML (DUONEB)(J7620) NEB SCH ×5 (03:56→20:52)
[2016-10-05 06:00] VITALS: BP 133/63
[2016-10-05] MEDS: HumaLOG INSULIN (NovoLOG) PER UNIT SC SCH ×4 (07:30→21:00)
[2016-10-05] MEDS: BUDESONIDE 0.5 MG/2 ML INHALATION SUSPENSION INH SCH ×2 (07:39→20:52)
[2016-10-05] MEDS: TIOTROPIUM INHALER/CAPSULE (SPIRIVA) INH SCH (07:39)
[2016-10-05] MEDS: SPIRONOLACTONE 25 MG TAB PO SCH (08:18)
[2016-10-05] MEDS: FUROSEMIDE 20 MG TAB PO SCH (08:19)
[2016-10-05] MEDS: ESCITALOPRAM OXALATE 10 MG TAB (LEXAPRO) PO SCH (08:19)
[2016-10-05] MEDS: busPIRone 5 MG TAB PO SCH ×2 (08:19→21:40)
[2016-10-05] MEDS: ASPIRIN 81 MG ENTERIC TAB PO SCH (08:19)
[2016-10-05] MEDS: OMEPRAZOLE 20 MG CAP PO SCH (08:20)
[2016-10-05] MEDS: MAGNESIUM OXIDE 400 MG TAB (MAG-OX) PO SCH ×3 (08:20→21:40)
[2016-10-05] MEDS: CARVedilol 3.125 MG TAB PO SCH ×2 (08:21→21:42)
[2016-10-05] MEDS: ENOXAPARIN 40 MG/0.4 ML SYRINGE (J1650) SC SCH (08:22)
[2016-10-05] MEDS: ACETAMINOPHEN TAB 650MG DOSE (2X325MG) PO PRN ×2 (10:24→23:28)
[2016-10-05 14:19] VITALS: BP 127/60
[2016-10-05] MEDS: ATORVASTATIN 10 MG TAB PO SCH (21:40)
[2016-10-05] MEDS: SERTRALINE HCL 25 MG TABLET PO SCH (21:40)
[2016-10-05] MEDS: rOPINIRole 1MG TAB PO SCH (21:40)
[2016-10-05] MEDS: LOSARTAN 50 MG TAB PO SCH (21:41)
[2016-10-05] MEDS: traZODone 25MG PER 1/2 TABLET PO PRN (21:41)
[2016-10-05] MEDS: amLODIPine 10 MG TAB PO SCH (21:42)
[2016-10-05 22:00] VITALS: BP 166/74
[2016-10-06] MEDS: IPRATROPIUM 0.5MG/ALBUTEROL 2.5MG INH SOL UD 3ML (DUONEB)(J7620) NEB SCH ×6 (04:00→19:28)
[2016-10-06 06:00] VITALS: BP 130/60
--- NOTE | 2016-10-06 07:04 | IPN ---
DATE: 10/06/2016 71-year-old female seen at bedside resting comfortably. No overnight issues reported. She denies chest pain, palpitations, nausea, vomiting. She does continue to require oxygen supplementation and does have issues with occasional desaturations during the day. My concern is that she may not be able to make it to an outpatient pulmonary appointment and follow on a sleep study and we have been working closely with [facility] (PFS) to try to problem solve this. OBJECTIVE: Temperature is 98.1, pulse 78, respiratory rate 20, blood pressure (BP) 130/60, SPO2 is 98% on 2 liters. General: The patient appears to be in no acute distress. Is alert and oriented. HEENT: Unremarkable. Lungs: Diminished bibasilar breath sounds, otherwise clear. Heart: Regular rate and rhythm. Abdomen: Soft, obese, nontender. Positive bowel sounds. No masses or rebound. Extremities: No edema. No calf tenderness. LABORATORY DATA: From two days ago, white count 9.3, hemoglobin 10.2 and platelets 277. Sodium 139, potassium 4.0, chloride 97, bicarb 37, anion gap 5, BUN 17, creatinine 0.72, glucose 134. ASSESSMENT/PLAN: 1. Leukocytosis, resolved. She has completed antibiotics at this point. 2. Chronic hypoxic hypercarbic respiratory failure superimposed on acute hypoxia. Multifactorial with underlying chronic obstructive pulmonary disease (COPD) as well as likely obstructive sleep apnea as previously noted been on intermittent BiPAP. Continues on obstructive sleep apnea protocols. We have had discussions with PFS and the current plan is to try to see if she qualifies for a Trilogy device at home to see if this would help as a stop gap measure until she can get in with pulmonology and hopefully a sleep test in the future. 3. Acute renal insufficiency, resolved. 4. Diarrhea, resolved. 5. Hypokalemia and hypomagnesemia, resolved. 6. Hypotension, resolved. 7. Anxiety. Continue with current supportive measures. 8. Diabetes. Continue fingersticks, sliding scale, consistent carbohydrate diet. 9. Hypertension. Continue on Norvasc, Coreg, losartan, spironolactone, Lasix. 10. Depression, doing well on current medications. 11. Congestive heart failure (CHF), appears to be compensated. 12. History of smoking. Encourage smoking cessation, counseling has been provided. 13. Suspected sleep apnea as outlined above. 14. Prior history of transient ischemic attacks (TIAs). No current issues. No deficits. 15. Restless leg syndrome, doing well on Requip. 16. Deconditioning. Working with physical therapy. She does complain of some right shoulder discomfort, but she does have good range of motion today. 17. Obesity which can complicate her medical care. 18. Deep vein thrombosis (DVT) prophylaxis, on Lovenox. DISPOSITION: She remains as long-term level at this point. PFS is on board. Physical therapy on board. We are checking to see if we can qualify her for a Trilogy device for home use and hopefully follow on care with pulmonology and sleep study in the future as an outpatient.
[2016-10-06] MEDS: TIOTROPIUM INHALER/CAPSULE (SPIRIVA) INH SCH (07:23)
[2016-10-06] MEDS: BUDESONIDE 0.5 MG/2 ML INHALATION SUSPENSION INH SCH ×2 (07:24→19:28)
[2016-10-06] MEDS: HumaLOG INSULIN (NovoLOG) PER UNIT SC SCH ×4 (09:25→21:00)
[2016-10-06] MEDS: ESCITALOPRAM OXALATE 10 MG TAB (LEXAPRO) PO SCH (09:26)
[2016-10-06] MEDS: ASPIRIN 81 MG ENTERIC TAB PO SCH (09:26)
[2016-10-06] MEDS: SPIRONOLACTONE 25 MG TAB PO SCH (09:26)
[2016-10-06] MEDS: OMEPRAZOLE 20 MG CAP PO SCH (09:26)
[2016-10-06] MEDS: FUROSEMIDE 20 MG TAB PO SCH (09:26)
[2016-10-06] MEDS: CARVedilol 3.125 MG TAB PO SCH ×2 (09:26→21:00)
[2016-10-06] MEDS: busPIRone 5 MG TAB PO SCH ×2 (09:26→20:59)
[2016-10-06] MEDS: ACETAMINOPHEN TAB 650MG DOSE (2X325MG) PO PRN ×2 (09:27→20:58)
[2016-10-06] MEDS: ENOXAPARIN 40 MG/0.4 ML SYRINGE (J1650) SC SCH (09:27)
[2016-10-06] MEDS: MAGNESIUM OXIDE 400 MG TAB (MAG-OX) PO SCH ×3 (09:27→20:58)
[2016-10-06 14:00] VITALS: BP 140/63
[2016-10-06] MEDS: LOSARTAN 50 MG TAB PO SCH (20:59)
[2016-10-06] MEDS: rOPINIRole 1MG TAB PO SCH (20:59)
[2016-10-06] MEDS: ATORVASTATIN 10 MG TAB PO SCH (20:59)
[2016-10-06] MEDS: amLODIPine 10 MG TAB PO SCH (21:00)
[2016-10-06] MEDS: traZODone 25MG PER 1/2 TABLET PO PRN (21:00)
[2016-10-06] MEDS: SERTRALINE HCL 25 MG TABLET PO SCH (21:00)
[2016-10-06 22:00] VITALS: BP 140/55
[2016-10-07] MEDS: IPRATROPIUM 0.5MG/ALBUTEROL 2.5MG INH SOL UD 3ML (DUONEB)(J7620) NEB SCH ×7 (03:23→23:55)
[2016-10-07 06:00] VITALS: BP 130/55
[2016-10-07] MEDS: TIOTROPIUM INHALER/CAPSULE (SPIRIVA) INH SCH (07:08)
[2016-10-07] MEDS: BUDESONIDE 0.5 MG/2 ML INHALATION SUSPENSION INH SCH ×2 (07:08→20:40)
[2016-10-07] MEDS: ENOXAPARIN 40 MG/0.4 ML SYRINGE (J1650) SC SCH (08:33)
[2016-10-07] MEDS: OMEPRAZOLE 20 MG CAP PO SCH (08:34)
[2016-10-07] MEDS: ACETAMINOPHEN TAB 650MG DOSE (2X325MG) PO PRN ×2 (08:34→18:15)
[2016-10-07] MEDS: MAGNESIUM OXIDE 400 MG TAB (MAG-OX) PO SCH ×3 (08:34→20:49)
[2016-10-07] MEDS: busPIRone 5 MG TAB PO SCH ×2 (08:34→20:51)
[2016-10-07] MEDS: ASPIRIN 81 MG ENTERIC TAB PO SCH (08:35)
[2016-10-07] MEDS: SPIRONOLACTONE 25 MG TAB PO SCH (08:35)
[2016-10-07] MEDS: ESCITALOPRAM OXALATE 10 MG TAB (LEXAPRO) PO SCH (08:35)
[2016-10-07] MEDS: FUROSEMIDE 20 MG TAB PO SCH (08:35)
[2016-10-07] MEDS: HumaLOG INSULIN (NovoLOG) PER UNIT SC SCH ×4 (08:35→21:00)
[2016-10-07] MEDS: CARVedilol 3.125 MG TAB PO SCH ×2 (08:35→20:51)
[2016-10-07 09:00] VITALS: O2SAT 95
[2016-10-07 14:00] VITALS: BP 117/58
--- NOTE | 2016-10-07 18:53 | IPNPDOC ---
Date Seen The patient was seen on 10/07/16. Progress Note Hospitalist Progress Note Subjective: The patient currently feels well, but she is very worried about how her breathing would be if she went home Objective: Physical Exam: Vitals: Vital Sign - Last 24 Hours 10/06/16 10/06/16 10/06/16 10/06/16 19:18 19:18 20:59 21:00 Pulse 85 B/P 140/55 140/55 O2 Delivery Nasal Cannula Nasal Cannula O2 Flow Rate 2.0 2.0 10/06/16 10/06/16 10/06/16 10/07/16 21:00 21:00 22:00 06:00 Temp 98.8 97.7 Pulse 85 85 84 Resp 18 16 B/P 140/55 140/55 130/55 Pulse Ox 94 91 O2 Delivery Nasal Cannula Nasal Cannula Nasal Cannula O2 Flow Rate 2.0 2.0 2.0 10/07/16 10/07/16 10/07/16 08:35 09:00 09:00 Pulse 84 B/P 130/55 Pulse Ox 95 O2 Delivery Nasal Cannula Nasal Cannula O2 Flow Rate 3.0 3.0 General: Awake, alert, no acute distress HEENT: Normocephalic, atraumatic, extraocular movements intact CV: Regular rate and rhythm, no murmurs rubs or gallops Lungs: Clear to auscultation bilaterally with no wheezes Abd: Soft, nontender, nondistended Extremities: Trace edema of the bilateral lower extremities Neuro: Alert and oriented 3, normal speech Psych: And normal mood and affect Labs and Imaging: None to review Assessment and Plan: 71-year-old female with advanced COPD and chronic hypoxemic/hypercapnic respiratory failure, chronic diastolic CHF, diabetes mellitus type 2, history of CVA, morbid obesity, hypertension, hyperlipidemia, SANDY, GERD, suspected pulmonary hypertension, anxiety and depression who was initially transferred here from [facility]. She had evidently had several recent admissions to a variety of local hospitals for exacerbations of her underlying lung issues. At this point, she is medically mostly ready for discharge, however there has been some concern about whether or not she would be able to make it at home until she can get an outpatient pulmonary appointment and a follow-up sleep study. It is documented that the patient had previously been intolerant of CPAP, but upon my discussion with the patient today, she tells me that she is very worried about her breathing, and is willing to do another sleep study and to use CPAP if that's what she needs. 1. Acute exacerbation of Advanced COPD and chronic hypoxemic/hypercapnic respiratory failure with suspected pulmonary hypertension, and underlying SANDY: Acute exacerbation is now resolved. We will work with PFS to arrange a safe discharge. They think that there is a possibility that they may be up to get her a home Trilogy, which she could use until she is able to have a repeat sleep study and be fitted for CPAP again. Continue home Spiriva, DuoNeb's, Pulmicort. 2. Chronic diastolic CHF: Echo upon this admission showed preserved ejection fraction with grade 1 diastolic dysfunction. The patient is currently compensated. Continue home Aldactone and Lasix. 3. Diabetes mellitus type 2: Currently holding home glipizide and home metformin. Continue sliding scale insulin while in-house. 4. Acute kidney injury: This has now resolved, and nephrology has signed off. 5. Anxiety and depression: Continue home Zoloft, trazodone, Lexapro, BuSpar. It seems a little odd to me, that the patient is on 2 SSRIs, but these are both reported on her home medications. I will try to further discuss with the patient to see if quite possibly she has stopped one of these. 6. History of CVA: Continue home aspirin and statin. Continue blood pressure control 7. Hypertension: Continue home Norvasc, beta samantha, ARB, and diuretics. 8. GERD: Continue home PPI. DVT prophylaxis: Lovenox Dispo: working with PFS to arrange safe discharge, now that the patient is amenable to potentially CPAP, we will work to see if we might be up to get her Trilogy to use until she has a repeat sleep study and is fitted for CPAP. VS, I&O, 24H, Fishbone Vital Signs/I&O Vital Signs Date Time Temp Pulse Resp B/P Pulse Ox O2 Delivery O2 Flow Rate FiO2 10/07/16 09:00 Nasal Cannula 3.0 10/07/16 09:00 95 10/07/16 08:35 84 130/55 10/07/16 06:00 97.7 16 10/03/16 10:45 94 I&O- Last 24 Hours up to 6 AM 10/07/16 06:00 Intake Total 1220 ml Output Total 2200 ml Balance -980 ml Laboratory Data 24H LABS Laboratory Tests 2 10/06/16 19:45: Bedside Glucose (Misc Panel) 164H 10/07/16 07:47: Bedside Glucose (Misc Panel) 125H 10/07/16 12:00: Bedside Glucose (Misc Panel) 141H 10/07/16 16:57: Bedside Glucose (Misc Panel) 159H MARKIE GARAY Oct 07, 2016 18:53
[2016-10-07] MEDS: amLODIPine 10 MG TAB PO SCH (20:50)
[2016-10-07] MEDS: SERTRALINE HCL 25 MG TABLET PO SCH (20:50)
[2016-10-07] MEDS: LOSARTAN 50 MG TAB PO SCH (20:50)
[2016-10-07] MEDS: ATORVASTATIN 10 MG TAB PO SCH (20:51)
[2016-10-07] MEDS: rOPINIRole 1MG TAB PO SCH (20:51)
[2016-10-07 22:00] VITALS: BP 141/65
[2016-10-08] MEDS: IPRATROPIUM 0.5MG/ALBUTEROL 2.5MG INH SOL UD 3ML (DUONEB)(J7620) NEB SCH ×6 (03:50→23:34)
[2016-10-08 06:00] VITALS: BP 141/59
[2016-10-08 07:13] LABS: BASO % 0.5 % (0.0-1.0); EOS # 0.3 K/mm3 (0.0-0.50); EOS % 3.4 % (0.0-3.0); LARGE UNSTAINED CELL # 0.1 K/mm3 (0.0-0.4); LARGE UNSTAINED CELL % 1.4 % (0.0-4.0); LYMPH % 19.1 % (24.0-44.0); MEAN CORPUSCULAR HGB CONC 32.2 g/dl (32.0-36.5); MEAN CORPUSCULAR VOLUME 96.3 fl (80.0-96.0); MONO # 0.5 K/mm3 (0.0-0.8); MONO % 4.7 % (0.0-5.0); NEUTROPHILS # 6.8 K/mm3 (1.8-7.7); NEUTROPHILS % 70.9 % (36.0-66.0); PLATELET COUNT, AUTOMATED 274 k/mm3 (150-450); RED CELL DISTRIBUTION WIDTH 14.2 % (11.5-14.5); WHITE BLOOD COUNT 9.6 K/mm3 (4.0-10.0)
[2016-10-08] MEDS: TIOTROPIUM INHALER/CAPSULE (SPIRIVA) INH SCH (07:16)
[2016-10-08] MEDS: BUDESONIDE 0.5 MG/2 ML INHALATION SUSPENSION INH SCH ×2 (07:16→20:20)
[2016-10-08 07:30] LABS: ANION GAP 4 MEQ/L (8-16); BLOOD UREA NITROGEN 18 MG/DL (7-18); CALCIUM LEVEL 8.7 MG/DL (8.8-10.2); CARBON DIOXIDE LEVEL 40 MEQ/L (21-32); CHLORIDE LEVEL 96 MEQ/L (98-107); CREATININE FOR GFR 0.74 MG/DL (0.55-1.02); GLOMERULAR FILTRATION RATE > 60.0 (>45); GLUCOSE, FASTING 145 MG/DL (80-110); MAGNESIUM LEVEL 1.9 MG/DL (1.8-2.4); SODIUM LEVEL 140 MEQ/L (136-145)
[2016-10-08 08:00] VITALS: O2SAT 91
[2016-10-08] MEDS: HumaLOG INSULIN (NovoLOG) PER UNIT SC SCH ×4 (08:36→21:00)
[2016-10-08] MEDS: SPIRONOLACTONE 25 MG TAB PO SCH (08:37)
[2016-10-08] MEDS: busPIRone 5 MG TAB PO SCH ×2 (08:37→21:04)
[2016-10-08] MEDS: MAGNESIUM OXIDE 400 MG TAB (MAG-OX) PO SCH ×3 (08:37→21:05)
[2016-10-08] MEDS: OMEPRAZOLE 20 MG CAP PO SCH (08:37)
[2016-10-08] MEDS: ASPIRIN 81 MG ENTERIC TAB PO SCH (08:37)
[2016-10-08] MEDS: ENOXAPARIN 40 MG/0.4 ML SYRINGE (J1650) SC SCH (08:37)
[2016-10-08] MEDS: CARVedilol 3.125 MG TAB PO SCH ×2 (08:38→21:05)
[2016-10-08] MEDS: FUROSEMIDE 20 MG TAB PO SCH (08:38)
[2016-10-08] MEDS: ESCITALOPRAM OXALATE 10 MG TAB (LEXAPRO) PO SCH (08:38)
[2016-10-08 14:00] VITALS: BP 121/56
--- NOTE | 2016-10-08 19:03 | IPNPDOC ---
Date Seen The patient was seen on 10/08/16. Progress Note Hospitalist Progress Note Subjective: The patient currently feels well, but says she had trouble sleeping last night Objective: Physical Exam: Vitals: Vital Sign - Last 24 Hours 10/07/16 10/07/16 10/07/16 10/08/16 20:00 20:50 22:00 05:08 Temp 98.2 Pulse 81 81 Resp 18 B/P 141/65 141/65 Pulse Ox 99 O2 Delivery Nasal Cannula Nasal Cannula Nasal Cannula O2 Flow Rate 2.0 3.0 3.0 10/08/16 10/08/16 10/08/16 10/08/16 06:00 07:57 08:00 08:38 Temp 98.1 Pulse 81 80 Resp 16 B/P 141/59 104/48 Pulse Ox 92 91 O2 Delivery Nasal Cannula Nasal Cannula Nasal Cannula O2 Flow Rate 3.0 2.0 2.0 10/08/16 10/08/16 10:03 14:00 Temp 98.5 Pulse 86 Resp 18 B/P 121/56 Pulse Ox 91 90 O2 Delivery Nasal Cannula Nasal Cannula O2 Flow Rate 2.0 3.0 General: Awake, alert, no acute distress HEENT: Normocephalic, atraumatic, extraocular movements intact CV: Regular rate and rhythm Lungs: Clear to auscultation bilaterally Abd: Soft, nontender, nondistended, normal BS Extremities: Trace edema of the bilateral lower extremities Neuro: Alert and oriented 3, normal speech Psych: And normal mood and affect Labs and Imaging: Laboratory Tests 10/08/16 06:52 Calcium Level 8.7 L, Red Blood Count 3.34 L, Mean Corpuscular Volume 96.3 H, Mean Corpuscular Hemoglobin 31.0, Mean Corpuscular Hemoglobin Concent 32.2, Red Cell Distribution Width 14.2, Neutrophils (%) (Auto) 70.9 H, Lymphocytes (%) ( Auto) 19.1 L, Monocytes (%) (Auto) 4.7, Eosinophils (%) (Auto) 3.4 H, Basophils (%) (Auto) 0.5, Neutrophils # (Auto) 6.8, Lymphocytes # (Auto) 2.0, Monocytes # (Auto) 0.5, Eosinophils # (Auto) 0.3, Basophils # (Auto) 0.0 Assessment and Plan: 71-year-old female with advanced COPD and chronic hypoxemic/hypercapnic respiratory failure, chronic diastolic CHF, diabetes mellitus type 2, history of CVA, morbid obesity, hypertension, hyperlipidemia, SANDY, GERD, suspected pulmonary hypertension, anxiety and depression who was initially transferred here from [facility]. She had evidently had several recent admissions to a variety of local hospitals for exacerbations of her underlying lung issues. At this point, she is medically mostly ready for discharge, however there has been some concern about whether or not she would be able to make it at home until she can get an outpatient pulmonary appointment and a follow-up sleep study. It is documented that the patient had previously been intolerant of CPAP, but upon my discussion with the patient on Friday, she tells me that she is very worried about her breathing, and is willing to do another sleep study and to use CPAP if that's what she needs. 1. Acute exacerbation of Advanced COPD and chronic hypoxemic/hypercapnic respiratory failure with suspected pulmonary hypertension, and underlying SANDY: Acute exacerbation is now resolved. We will work with PFS to arrange a safe discharge. They think that there is a possibility that they may be up to get her a home Trilogy, which she could use until she is able to have a repeat sleep study and be fitted for CPAP again. Continue home Spiriva, DuoNeb's, Pulmicort. 2. Chronic diastolic CHF: Echo upon this admission showed preserved ejection fraction with grade 1 diastolic dysfunction. The patient is currently compensated. Continue home Aldactone and Lasix. 3. Diabetes mellitus type 2: Currently holding home glipizide and home metformin. Continue sliding scale insulin while in-house. 4. Acute kidney injury: This has now resolved, and nephrology has signed off. 5. Anxiety and depression: Continue home Zoloft, trazodone, Lexapro, BuSpar. It seems a little odd to me, that the patient is on 2 SSRIs, but these are both reported on her home medications. I will try to further discuss with the patient to see if quite possibly she has stopped one of these. 6. History of CVA: Continue home aspirin and statin. Continue blood pressure control 7. Hypertension: Continue home Norvasc, beta samantha, ARB, and diuretics. 8. GERD: Continue home PPI. DVT prophylaxis: Hallenox Dispo: working with PFS to arrange safe discharge, now that the patient is amenable to potentially CPAP, we will work to see if we might be up to get her Trilogy to use until she has a repeat sleep study and is fitted for CPAP. Hopefully discharge by the end of the week. VS, I&O, 24H, [facility] Vital Signs/I&O Vital Signs Date Time Temp Pulse Resp B/P Pulse Ox O2 Delivery O2 Flow Rate FiO2 10/08/16 14:00 98.5 86 18 121/56 90 Nasal Cannula 3.0 10/03/16 10:45 94 I&O- Last 24 Hours up to 6 AM 10/08/16 06:00 Intake Total 720 ml Output Total 2700 ml Balance -1980 ml Laboratory Data 24H LABS Laboratory Tests 2 10/07/16 20:49: Bedside Glucose (Misc Panel) 139H 10/08/16 06:52: Anion Gap 4L, White Blood Count 9.6, Red Blood Count 3.34L, Hemoglobin 10.4L, Hematocrit 32.2L, Mean Corpuscular Volume 96.3H, Mean Corpuscular Hemoglobin 31.0, Mean Corpuscular Hemoglobin Concent 32.2, Red Cell Distribution Width 14.2 , Platelet Count 274, Neutrophils (%) (Auto) 70.9H, Lymphocytes (%) (Auto) 19.1L , Monocytes (%) (Auto) 4.7, Eosinophils (%) (Auto) 3.4H, Basophils (%) (Auto) 0.5, Neutrophils # (Auto) 6.8, Lymphocytes # (Auto) 2.0, Monocytes # (Auto) 0.5 , Eosinophils # (Auto) 0.3, Basophils # (Auto) 0.0, Blood Urea Nitrogen 18, Creatinine 0.74, Sodium Level 140, Potassium Level 4.0, Chloride Level 96L, Carbon Dioxide Level 40H, Calcium Level 8.7L, Glomerular Filtration Rate > 60.0 , Large Unclassified Cells # 0.1, Large Unclassified Cells % 1.4, Magnesium Level 1.9 10/08/16 11:30: Bedside Glucose (Misc Panel) 162H 10/08/16 16:58: Bedside Glucose (Misc Panel) 123H CBC/BMP Laboratory Tests 10/08/16 06:52 Calcium Level 8.7 L, Red Blood Count 3.34 L, Mean Corpuscular Volume 96.3 H, Mean Corpuscular Hemoglobin 31.0, Mean Corpuscular Hemoglobin Concent 32.2, Red Cell Distribution Width 14.2, Neutrophils (%) (Auto) 70.9 H, Lymphocytes (%) ( Auto) 19.1 L, Monocytes (%) (Auto) 4.7, Eosinophils (%) (Auto) 3.4 H, Basophils (%) (Auto) 0.5, Neutrophils # (Auto) 6.8, Lymphocytes # (Auto) 2.0, Monocytes # (Auto) 0.5, Eosinophils # (Auto) 0.3, Basophils # (Auto) 0.0 MARKIE GARAY Oct 08, 2016 19:03
[2016-10-08 20:21] VITALS: O2SAT 91
[2016-10-08] MEDS: ATORVASTATIN 10 MG TAB PO SCH (21:04)
[2016-10-08] MEDS: LOSARTAN 50 MG TAB PO SCH (21:04)
[2016-10-08] MEDS: SERTRALINE HCL 25 MG TABLET PO SCH (21:05)
[2016-10-08] MEDS: rOPINIRole 1MG TAB PO SCH (21:05)
[2016-10-08] MEDS: amLODIPine 10 MG TAB PO SCH (21:05)
[2016-10-08] MEDS: ACETAMINOPHEN TAB 650MG DOSE (2X325MG) PO PRN (21:12)
[2016-10-08] MEDS: traZODone 25MG PER 1/2 TABLET PO PRN (21:26)
[2016-10-08 22:00] VITALS: BP 140/70
[2016-10-09] MEDS: IPRATROPIUM 0.5MG/ALBUTEROL 2.5MG INH SOL UD 3ML (DUONEB)(J7620) NEB SCH ×5 (03:23→19:19)
[2016-10-09] MEDS: ACETAMINOPHEN TAB 650MG DOSE (2X325MG) PO PRN ×3 (06:11→21:30)
[2016-10-09 06:15] VITALS: BP 131/59
[2016-10-09] MEDS: TIOTROPIUM INHALER/CAPSULE (SPIRIVA) INH SCH (07:15)
[2016-10-09] MEDS: BUDESONIDE 0.5 MG/2 ML INHALATION SUSPENSION INH SCH ×2 (07:15→19:19)
[2016-10-09 07:22] LABS: BASO # 0.1 K/mm3 (0.0-0.2); BASO % 0.6 % (0.0-1.0); EOS # 0.4 K/mm3 (0.0-0.50); EOS % 4.2 % (0.0-3.0); LARGE UNSTAINED CELL # 0.2 K/mm3 (0.0-0.4); LARGE UNSTAINED CELL % 1.6 % (0.0-4.0); LYMPH # 2.2 K/mm3 (1.5-4.5); LYMPH % 21.7 % (24.0-44.0); MEAN CORPUSCULAR HEMOGLOBIN 30.8 pg (27.0-33.0); MEAN CORPUSCULAR HGB CONC 31.8 g/dl (32.0-36.5); MEAN CORPUSCULAR VOLUME 96.8 fl (80.0-96.0); MONO # 0.5 K/mm3 (0.0-0.8); MONO % 4.9 % (0.0-5.0); NEUTROPHILS # 6.4 K/mm3 (1.8-7.7); NEUTROPHILS % 66.8 % (36.0-66.0); PLATELET COUNT, AUTOMATED 294 k/mm3 (150-450); RED CELL DISTRIBUTION WIDTH 14.2 % (11.5-14.5); WHITE BLOOD COUNT 9.5 K/mm3 (4.0-10.0)
[2016-10-09 07:39] LABS: ANION GAP 6 MEQ/L (8-16); BLOOD UREA NITROGEN 20 MG/DL (7-18); CALCIUM LEVEL 8.8 MG/DL (8.8-10.2); CARBON DIOXIDE LEVEL 38 MEQ/L (21-32); CHLORIDE LEVEL 96 MEQ/L (98-107); CREATININE FOR GFR 0.79 MG/DL (0.55-1.02); GLOMERULAR FILTRATION RATE > 60.0 (>45); GLUCOSE, FASTING 148 MG/DL (80-110); MAGNESIUM LEVEL 2.1 MG/DL (1.8-2.4); POTASSIUM SERUM 4.1 MEQ/L (3.5-5.1); SODIUM LEVEL 140 MEQ/L (136-145)
[2016-10-09] MEDS: ENOXAPARIN 40 MG/0.4 ML SYRINGE (J1650) SC SCH (08:18)
[2016-10-09] MEDS: HumaLOG INSULIN (NovoLOG) PER UNIT SC SCH ×4 (08:18→21:00)
[2016-10-09] MEDS: SPIRONOLACTONE 25 MG TAB PO SCH (08:20)
[2016-10-09] MEDS: busPIRone 5 MG TAB PO SCH ×2 (08:20→21:32)
[2016-10-09] MEDS: FUROSEMIDE 20 MG TAB PO SCH (08:21)
[2016-10-09] MEDS: ESCITALOPRAM OXALATE 10 MG TAB (LEXAPRO) PO SCH (08:21)
[2016-10-09] MEDS: ASPIRIN 81 MG ENTERIC TAB PO SCH (08:21)
[2016-10-09] MEDS: CARVedilol 3.125 MG TAB PO SCH ×2 (08:21→21:00)
[2016-10-09] MEDS: MAGNESIUM OXIDE 400 MG TAB (MAG-OX) PO SCH ×3 (08:22→21:31)
[2016-10-09] MEDS: OMEPRAZOLE 20 MG CAP PO SCH (08:22)
[2016-10-09 09:53] VITALS: O2SAT 89
[2016-10-09] MEDS: predniSONE 20 MG TAB PO SCH (12:45)
--- NOTE | 2016-10-09 14:49 | IPNPDOC ---
Date Seen The patient was seen on 10/09/16. Progress Note Hospitalist Progress Note Subjective: The patient feels her breathing is worse today Objective: Physical Exam: Vitals: Vital Sign - Last 24 Hours 10/08/16 10/08/16 10/08/16 10/08/16 20:00 20:21 21:04 21:05 Pulse 82 B/P 140/70 140/70 Pulse Ox 91 O2 Delivery Nasal Cannula Nasal Cannula O2 Flow Rate 2.0 2.0 10/08/16 10/09/16 10/09/16 10/09/16 22:00 04:14 06:15 08:21 Temp 99.1 97.7 Pulse 82 83 83 Resp 16 16 B/P 140/70 131/59 131/59 Pulse Ox 94 94 O2 Delivery Nasal Cannula Nasal Cannula Nasal Cannula O2 Flow Rate 2.0 3.0 3.0 10/09/16 10/09/16 08:49 09:53 Pulse Ox 89 O2 Delivery Nasal Cannula Nasal Cannula O2 Flow Rate 3.0 3.0 General: Awake, alert, no acute distress HEENT: Normocephalic, atraumatic, extraocular movements intact CV: Regular rate and rhythm Lungs: very tight, moving very little air Abd: Soft, nontender, nondistended, normal BS Extremities: Trace edema of the bilateral lower extremities Neuro: Alert and oriented 3, normal speech Psych: normal mood and affect Labs and Imaging: Laboratory Tests 10/09/16 06:52 Calcium Level 8.8, Red Blood Count 3.54 L, Mean Corpuscular Volume 96.8 H, Mean Corpuscular Hemoglobin 30.8, Mean Corpuscular Hemoglobin Concent 31.8 L, Red Cell Distribution Width 14.2, Neutrophils (%) (Auto) 66.8 H, Lymphocytes (%) ( Auto) 21.7 L, Monocytes (%) (Auto) 4.9, Eosinophils (%) (Auto) 4.2 H, Basophils (%) (Auto) 0.6, Neutrophils # (Auto) 6.4, Lymphocytes # (Auto) 2.2, Monocytes # (Auto) 0.5, Eosinophils # (Auto) 0.4, Basophils # (Auto) 0.1 Assessment and Plan: 71-year-old female with advanced COPD and chronic hypoxemic/hypercapnic respiratory failure, chronic diastolic CHF, diabetes mellitus type 2, history of CVA, morbid obesity, hypertension, hyperlipidemia, SANDY, GERD, suspected pulmonary hypertension, anxiety and depression who was initially transferred here from [facility]. She had evidently had several recent admissions to a variety of local hospitals for exacerbations of her underlying lung issues. At this point, she is medically mostly ready for discharge, however given her SANDY, there is concern that the patient will not do well at home without some sort of nocturnal support. It is documented that the patient had previously been intolerant of CPAP, but upon my discussion with the patient on Friday, she tells me that she is very worried about her breathing, and is willing to use something while sleeping if that is what she needs. 1. Acute exacerbation of Advanced COPD and chronic hypoxemic/hypercapnic respiratory failure with suspected pulmonary hypertension, and underlying SANDY: Acute exacerbation was resolved, but she appears to have a recurrence today. We are starting PO prednisone. We will continue to work with PFS to arrange a safe discharge. They think that there is a possibility that they may be up to get her a home Trilogy, which she could use . Continue home Spiriva, DuoNeb's, Pulmicort. 2. Chronic diastolic CHF: Echo upon this admission showed preserved ejection fraction with grade 1 diastolic dysfunction. The patient is currently compensated. Continue home Aldactone and Lasix. 3. Diabetes mellitus type 2: Currently holding home glipizide and home metformin. Continue sliding scale insulin while in-house. 4. Acute kidney injury: This has now resolved, and nephrology has signed off. 5. Anxiety and depression: Continue home Zoloft, trazodone, Lexapro, BuSpar. It seems a little odd to me, that the patient is on 2 SSRIs, but these are both reported on her home medications. I will try to further discuss with the patient to see if quite possibly she has stopped one of these. 6. History of CVA: Continue home aspirin and statin. Continue blood pressure control 7. Hypertension: Continue home Norvasc, beta samantha, ARB, and diuretics. 8. GERD: Continue home PPI. DVT prophylaxis: Lovenox Dispo: working with PFS to arrange safe discharge. Now that the patient is amenable to nocturnal aids, I believe the patient will benefit from the triology noninvasive vent due to the disease process of chronic respiratory failure. The triology offers the AVAPS mode, which will target a patient's tidal volume based on his ideal body weight. Patient will also benefit from the "sip and puff mode" which is mouth piece ventilation during the day and the mask during the night, thus, utilizing therapy up to 24H per day. The trilogy offers a battery life of up to 6 hours, which can be used in the event of a power outage as interruption of ventilation, which can lead to a serious life threatening event. VS, I&O, 24H, Fishbone Vital Signs/I&O Vital Signs Date Time Temp Pulse Resp B/P Pulse Ox O2 Delivery O2 Flow Rate FiO2 10/09/16 09:53 89 Nasal Cannula 3.0 10/09/16 08:21 83 131/59 10/09/16 06:15 97.7 16 10/03/16 10:45 94 I&O- Last 24 Hours up to 6 AM 10/09/16 06:00 Intake Total 1380 ml Output Total 1900 ml Balance -520 ml Laboratory Data 24H LABS Laboratory Tests 2 10/08/16 16:58: Bedside Glucose (Misc Panel) 123H 10/08/16 20:04: Bedside Glucose (Misc Panel) 149H 10/09/16 06:52: Anion Gap 6L, White Blood Count 9.5, Red Blood Count 3.54L, Hemoglobin 10.9L, Hematocrit 34.3L, Mean Corpuscular Volume 96.8H, Mean Corpuscular Hemoglobin 30.8, Mean Corpuscular Hemoglobin Concent 31.8L, Red Cell Distribution Width 14.2, Platelet Count 294, Neutrophils (%) (Auto) 66.8H, Lymphocytes (%) (Auto) 21.7L, Monocytes (%) (Auto) 4.9, Eosinophils (%) (Auto) 4.2H, Basophils (%) ( Auto) 0.6, Neutrophils # (Auto) 6.4, Lymphocytes # (Auto) 2.2, Monocytes # (Auto ) 0.5, Eosinophils # (Auto) 0.4, Basophils # (Auto) 0.1, Blood Urea Nitrogen 20H , Creatinine 0.79, Sodium Level 140, Potassium Level 4.1, Chloride Level 96L, Carbon Dioxide Level 38H, Calcium Level 8.8, Glomerular Filtration Rate > 60.0, Large Unclassified Cells # 0.2, Large Unclassified Cells % 1.6, Magnesium Level 2.1 10/09/16 12:15: Bedside Glucose (Misc Panel) 186H CBC/BMP Laboratory Tests 10/09/16 06:52 Calcium Level 8.8, Red Blood Count 3.54 L, Mean Corpuscular Volume 96.8 H, Mean Corpuscular Hemoglobin 30.8, Mean Corpuscular Hemoglobin Concent 31.8 L, Red Cell Distribution Width 14.2, Neutrophils (%) (Auto) 66.8 H, Lymphocytes (%) ( Auto) 21.7 L, Monocytes (%) (Auto) 4.9, Eosinophils (%) (Auto) 4.2 H, Basophils (%) (Auto) 0.6, Neutrophils # (Auto) 6.4, Lymphocytes # (Auto) 2.2, Monocytes # (Auto) 0.5, Eosinophils # (Auto) 0.4, Basophils # (Auto) 0.1 MARKIE GARAY Oct 09, 2016 14:49
[2016-10-09] MEDS: LOSARTAN 50 MG TAB PO SCH (21:31)
[2016-10-09] MEDS: SERTRALINE HCL 25 MG TABLET PO SCH (21:31)
[2016-10-09] MEDS: ATORVASTATIN 10 MG TAB PO SCH (21:32)
[2016-10-09] MEDS: rOPINIRole 1MG TAB PO SCH (21:32)
[2016-10-09] MEDS: amLODIPine 10 MG TAB PO SCH (21:32)
[2016-10-09] MEDS: traZODone 25MG PER 1/2 TABLET PO PRN (22:14)
[2016-10-10] MEDS: IPRATROPIUM 0.5MG/ALBUTEROL 2.5MG INH SOL UD 3ML (DUONEB)(J7620) NEB SCH ×7 (02:20→23:18)
[2016-10-10 06:00] VITALS: BP 137/64
[2016-10-10 07:06] LABS: BASO % 0.4 % (0.0-1.0); EOS # 0.1 K/mm3 (0.0-0.50); EOS % 0.7 % (0.0-3.0); LARGE UNSTAINED CELL # 0.1 K/mm3 (0.0-0.4); LARGE UNSTAINED CELL % 1.2 % (0.0-4.0); LYMPH % 18.8 % (24.0-44.0); MEAN CORPUSCULAR HEMOGLOBIN 30.7 pg (27.0-33.0); MEAN CORPUSCULAR HGB CONC 31.6 g/dl (32.0-36.5); MEAN CORPUSCULAR VOLUME 97.3 fl (80.0-96.0); MONO # 0.6 K/mm3 (0.0-0.8); MONO % 5.6 % (0.0-5.0); NEUTROPHILS # 7.5 K/mm3 (1.8-7.7); NEUTROPHILS % 73.4 % (36.0-66.0); PLATELET COUNT, AUTOMATED 312 k/mm3 (150-450); RED CELL DISTRIBUTION WIDTH 14.1 % (11.5-14.5); WHITE BLOOD COUNT 10.2 K/mm3 (4.0-10.0)
[2016-10-10 07:18] LABS: ANION GAP 4 MEQ/L (8-16); BLOOD UREA NITROGEN 19 MG/DL (7-18); CALCIUM LEVEL 8.9 MG/DL (8.8-10.2); CARBON DIOXIDE LEVEL 39 MEQ/L (21-32); CHLORIDE LEVEL 98 MEQ/L (98-107); CREATININE FOR GFR 0.72 MG/DL (0.55-1.02); GLOMERULAR FILTRATION RATE > 60.0 (>45); GLUCOSE, FASTING 138 MG/DL (80-110); MAGNESIUM LEVEL 2.2 MG/DL (1.8-2.4); POTASSIUM SERUM 4.2 MEQ/L (3.5-5.1); SODIUM LEVEL 141 MEQ/L (136-145)
[2016-10-10] MEDS: TIOTROPIUM INHALER/CAPSULE (SPIRIVA) INH SCH (07:51)
[2016-10-10] MEDS: BUDESONIDE 0.5 MG/2 ML INHALATION SUSPENSION INH SCH ×2 (07:52→20:32)
[2016-10-10] MEDS: HumaLOG INSULIN (NovoLOG) PER UNIT SC SCH ×4 (08:25→21:00)
[2016-10-10] MEDS: ENOXAPARIN 40 MG/0.4 ML SYRINGE (J1650) SC SCH (08:25)
[2016-10-10] MEDS: FUROSEMIDE 20 MG TAB PO SCH (08:27)
[2016-10-10] MEDS: MAGNESIUM OXIDE 400 MG TAB (MAG-OX) PO SCH (08:27)
[2016-10-10] MEDS: ESCITALOPRAM OXALATE 10 MG TAB (LEXAPRO) PO SCH (08:27)
[2016-10-10] MEDS: OMEPRAZOLE 20 MG CAP PO SCH (08:27)
[2016-10-10] MEDS: ASPIRIN 81 MG ENTERIC TAB PO SCH (08:28)
[2016-10-10] MEDS: busPIRone 5 MG TAB PO SCH ×2 (08:28→22:27)
[2016-10-10] MEDS: CARVedilol 3.125 MG TAB PO SCH ×2 (08:28→22:29)
[2016-10-10] MEDS: SPIRONOLACTONE 25 MG TAB PO SCH (08:28)
[2016-10-10] MEDS: predniSONE 20 MG TAB PO SCH (08:28)
[2016-10-10 14:00] VITALS: BP 136/68
--- NOTE | 2016-10-10 16:54 | IPNPDOC ---
Date Seen The patient was seen on 10/10/16. Progress Note Hospitalist Progress Note Subjective: The patient does not feel any improvement in her breathing Objective: Physical Exam: Vitals: Vital Sign - Last 24 Hours 10/09/16 10/09/16 10/09/16 10/09/16 16:52 19:20 20:00 21:31 B/P 163/68 O2 Delivery Nasal Cannula Nasal Cannula Nasal Cannula O2 Flow Rate 3.0 3.0 2.0 10/10/16 10/10/16 10/10/16 05:24 06:00 08:28 Temp 97.4 Pulse 86 86 Resp 18 B/P 137/64 137/64 Pulse Ox 95 O2 Delivery Nasal Cannula Nasal Cannula O2 Flow Rate 3.0 3.0 General: Awake, alert, no acute distress HEENT: Normocephalic, atraumatic, extraocular movements intact CV: Regular rate and rhythm Lungs: marginally better air movement today but still very tight Abd: Soft, nontender, nondistended, normal BS Extremities: Trace edema of the bilateral lower extremities Neuro: Alert and oriented 3, normal speech Psych: normal mood and affect Labs and Imaging: Laboratory Tests 10/10/16 06:39 Calcium Level 8.9, Red Blood Count 3.47 L, Mean Corpuscular Volume 97.3 H, Mean Corpuscular Hemoglobin 30.7, Mean Corpuscular Hemoglobin Concent 31.6 L, Red Cell Distribution Width 14.1, Neutrophils (%) (Auto) 73.4 H, Lymphocytes (%) ( Auto) 18.8 L, Monocytes (%) (Auto) 5.6 H, Eosinophils (%) (Auto) 0.7, Basophils (%) (Auto) 0.4, Neutrophils # (Auto) 7.5, Lymphocytes # (Auto) 2.0, Monocytes # (Auto) 0.6, Eosinophils # (Auto) 0.1, Basophils # (Auto) 0.0 Assessment and Plan: 71-year-old female with advanced COPD and chronic hypoxemic/hypercapnic respiratory failure, chronic diastolic CHF, diabetes mellitus type 2, history of CVA, morbid obesity, hypertension, hyperlipidemia, SANDY, GERD, suspected pulmonary hypertension, anxiety and depression who was initially transferred here from [facility]. She had evidently had several recent admissions to a variety of local hospitals for exacerbations of her underlying lung issues. At this point, she is medically mostly ready for discharge, however given her SANDY, there is concern that the patient will not do well at home without some sort of nocturnal support. It is documented that the patient had previously been intolerant of CPAP, but upon my discussion with the patient on Friday, she tells me that she is very worried about her breathing, and is willing to use something while sleeping if that is what she needs. 1. Acute exacerbation of Advanced COPD and chronic hypoxemic/hypercapnic respiratory failure with suspected pulmonary hypertension, and underlying SANDY: Acute exacerbation was resolved, but she appears to have a recurrence the past couple days. We started PO prednisone with little improvement, so we will change to IV solumedrol today. We will continue to work with [facility] to arrange a safe discharge. They think that there is a possibility that they may be up to get her a home Trilogy, which she could use . Continue home Spiriva, DuoNeb's, Pulmicort. 2. Chronic diastolic CHF: Echo upon this admission showed preserved ejection fraction with grade 1 diastolic dysfunction. The patient is currently compensated. Continue home Aldactone and Lasix. 3. Diabetes mellitus type 2: Currently holding home glipizide and home metformin. Continue sliding scale insulin while in-house. 4. Acute kidney injury: This has now resolved, and nephrology has signed off. 5. Anxiety and depression: Continue home Zoloft, trazodone, Lexapro, BuSpar. It seems a little odd to me, that the patient is on 2 SSRIs, but these are both reported on her home medications. Upon discussion with her, she knows for sure that she takes zoloft, but does not recognize either the name brand or the generic name of lexapro. Since the lexapro is a very low dose, we will stop it at this time and just keep her on zoloft. 6. History of CVA: Continue home aspirin and statin. Continue blood pressure control 7. Hypertension: Continue home Norvasc, beta samantha, ARB, and diuretics. 8. GERD: Continue home PPI. DVT prophylaxis: Lovenox Dispo: working with PFS to arrange safe discharge. Now that the patient is amenable to nocturnal aids, I believe the patient will benefit from the triology noninvasive vent due to the disease process of chronic respiratory failure. The triology offers the AVAPS mode, which will target a patient's tidal volume based on his ideal body weight. Patient will also benefit from the "sip and puff mode" which is mouth piece ventilation during the day and the mask during the night, thus, utilizing therapy up to 24H per day. The trilog offers a battery life of up to 6 hours, which can be used in the event of a power outage as interruption of ventilation, which can lead to a serious life threatening event. Will need to clear up current COPD exacerbation prior to discharge. VS, I&O, 24H, Fishbone Vital Signs/I&O Vital Signs Date Time Temp Pulse Resp B/P Pulse Ox O2 Delivery O2 Flow Rate FiO2 10/10/16 08:28 86 137/64 10/10/16 06:00 97.4 18 95 Nasal Cannula 3.0 I&O- Last 24 Hours up to 6 AM 10/10/16 06:00 Intake Total 720 ml Output Total 450 ml Balance 270 ml Laboratory Data 24H LABS Laboratory Tests 2 10/09/16 20:38: Bedside Glucose (Misc Panel) 239H 10/10/16 06:39: Anion Gap 4L, White Blood Count 10.2H, Red Blood Count 3.47L, Hemoglobin 10.7L, Hematocrit 33.8L, Mean Corpuscular Volume 97.3H, Mean Corpuscular Hemoglobin 30.7, Mean Corpuscular Hemoglobin Concent 31.6L, Red Cell Distribution Width 14.1, Platelet Count 312, Neutrophils (%) (Auto) 73.4H, Lymphocytes (%) (Auto) 18.8L, Monocytes (%) (Auto) 5.6H, Eosinophils (%) (Auto) 0.7, Basophils (%) ( Auto) 0.4, Neutrophils # (Auto) 7.5, Lymphocytes # (Auto) 2.0, Monocytes # (Auto ) 0.6, Eosinophils # (Auto) 0.1, Basophils # (Auto) 0.0, Blood Urea Nitrogen 19H , Creatinine 0.72, Sodium Level 141, Potassium Level 4.2, Chloride Level 98, Carbon Dioxide Level 39H, Calcium Level 8.9, Glomerular Filtration Rate > 60.0, Large Unclassified Cells # 0.1, Large Unclassified Cells % 1.2, Magnesium Level 2.2 10/10/16 11:42: Bedside Glucose (Misc Panel) 172H CBC/BMP Laboratory Tests 4/20/17 06:39 Calcium Level 8.9, Red Blood Count 3.47 L, Mean Corpuscular Volume 97.3 H, Mean Corpuscular Hemoglobin 30.7, Mean Corpuscular Hemoglobin Concent 31.6 L, Red Cell Distribution Width 14.1, Neutrophils (%) (Auto) 73.4 H, Lymphocytes (%) ( Auto) 18.8 L, Monocytes (%) (Auto) 5.6 H, Eosinophils (%) (Auto) 0.7, Basophils (%) (Auto) 0.4, Neutrophils # (Auto) 7.5, Lymphocytes # (Auto) 2.0, Monocytes # (Auto) 0.6, Eosinophils # (Auto) 0.1, Basophils # (Auto) 0.0 MARKIE GARAY Oct 10, 2016 16:53
[2016-10-10] MEDS: methylPREDNISolone INJ 125 MG/2 ML VIAL (J2930) IV SCH (17:14)
[2016-10-10] MEDS: traZODone 25MG PER 1/2 TABLET PO PRN (22:25)
[2016-10-10] MEDS: amLODIPine 10 MG TAB PO SCH (22:26)
[2016-10-10] MEDS: SERTRALINE HCL 25 MG TABLET PO SCH (22:26)
[2016-10-10] MEDS: LOSARTAN 50 MG TAB PO SCH (22:28)
[2016-10-10] MEDS: ATORVASTATIN 10 MG TAB PO SCH (22:29)
[2016-10-10] MEDS: rOPINIRole 1MG TAB PO SCH (22:30)
[2016-10-11] MEDS: methylPREDNISolone INJ 125 MG/2 ML VIAL (J2930) IV SCH ×3 (01:24→17:24)
[2016-10-11] MEDS: IPRATROPIUM 0.5MG/ALBUTEROL 2.5MG INH SOL UD 3ML (DUONEB)(J7620) NEB SCH ×6 (02:37→23:32)
[2016-10-11 07:01] LABS: BASO % 0.1 % (0.0-1.0); EOS % 0.2 % (0.0-3.0); LARGE UNSTAINED CELL % 0.3 % (0.0-4.0); LYMPH # 0.9 K/mm3 (1.5-4.5); LYMPH % 7.4 % (24.0-44.0); MEAN CORPUSCULAR HEMOGLOBIN 30.7 pg (27.0-33.0); MEAN CORPUSCULAR VOLUME 95.8 fl (80.0-96.0); MONO # 0.2 K/mm3 (0.0-0.8); MONO % 1.9 % (0.0-5.0); NEUTROPHILS # 10.1 K/mm3 (1.8-7.7); NEUTROPHILS % 90.1 % (36.0-66.0); PLATELET COUNT, AUTOMATED 305 k/mm3 (150-450); RED CELL DISTRIBUTION WIDTH 13.9 % (11.5-14.5); WHITE BLOOD COUNT 11.2 K/mm3 (4.0-10.0)
[2016-10-11 07:16] LABS: ANION GAP 6 MEQ/L (8-16); BLOOD UREA NITROGEN 25 MG/DL (7-18); CALCIUM LEVEL 9.5 MG/DL (8.8-10.2); CARBON DIOXIDE LEVEL 36 MEQ/L (21-32); CHLORIDE LEVEL 99 MEQ/L (98-107); CREATININE FOR GFR 0.78 MG/DL (0.55-1.02); GLOMERULAR FILTRATION RATE > 60.0 (>45); GLUCOSE, FASTING 224 MG/DL (80-110); MAGNESIUM LEVEL 2.1 MG/DL (1.8-2.4); POTASSIUM SERUM 4.3 MEQ/L (3.5-5.1); SODIUM LEVEL 141 MEQ/L (136-145)
[2016-10-11] MEDS: BUDESONIDE 0.5 MG/2 ML INHALATION SUSPENSION INH SCH ×2 (08:06→19:42)
[2016-10-11] MEDS: TIOTROPIUM INHALER/CAPSULE (SPIRIVA) INH SCH (08:06)
[2016-10-11] MEDS: HumaLOG INSULIN (NovoLOG) PER UNIT SC SCH ×4 (08:21→20:35)
[2016-10-11] MEDS: MAGNESIUM OXIDE 400 MG TAB (MAG-OX) PO SCH (08:22)
[2016-10-11] MEDS: FUROSEMIDE 20 MG TAB PO SCH (08:22)
[2016-10-11] MEDS: ENOXAPARIN 40 MG/0.4 ML SYRINGE (J1650) SC SCH (08:22)
[2016-10-11] MEDS: OMEPRAZOLE 20 MG CAP PO SCH (08:22)
[2016-10-11] MEDS: ASPIRIN 81 MG ENTERIC TAB PO SCH (08:23)
[2016-10-11] MEDS: busPIRone 5 MG TAB PO SCH ×2 (08:23→20:16)
[2016-10-11] MEDS: CARVedilol 3.125 MG TAB PO SCH ×2 (08:23→20:18)
[2016-10-11] MEDS: ACETAMINOPHEN TAB 650MG DOSE (2X325MG) PO PRN ×2 (08:23→20:33)
[2016-10-11] MEDS: SPIRONOLACTONE 25 MG TAB PO SCH (08:23)
--- NOTE | 2016-10-11 14:48 | IPNPDOC ---
Date Seen The patient was seen on 10/11/16. Progress Note Hospitalist Progress Note Subjective: The patient does not feel any improvement in her breathing Objective: Physical Exam: Vitals: Vital Sign - Last 24 Hours 10/10/16 10/10/16 10/11/16 10/11/16 21:00 22:26 06:00 08:23 Temp 98.6 Pulse 77 86 86 Resp 20 B/P 180/79 180/79 Pulse Ox 92 O2 Delivery Nasal Cannula O2 Flow Rate 2.0 10/11/16 09:00 O2 Delivery Nasal Cannula O2 Flow Rate 2.0 General: Awake, alert, no acute distress HEENT: Normocephalic, atraumatic, extraocular movements intact CV: Regular rate and rhythm Lungs: still very tight with wheezing, not moving much air Abd: Soft, nontender, nondistended, normal BS Extremities: Trace edema of the bilateral lower extremities Neuro: Alert and oriented 3, normal speech Psych: normal mood and affect Labs and Imaging: Laboratory Tests 10/11/16 06:36 Calcium Level 9.5, Red Blood Count 3.61 L, Mean Corpuscular Volume 95.8, Mean Corpuscular Hemoglobin 30.7, Mean Corpuscular Hemoglobin Concent 32.0, Red Cell Distribution Width 13.9, Neutrophils (%) (Auto) 90.1 H, Lymphocytes (%) (Auto) 7.4 L, Monocytes (%) (Auto) 1.9, Eosinophils (%) (Auto) 0.2, Basophils (%) (Auto ) 0.1, Neutrophils # (Auto) 10.1 H, Lymphocytes # (Auto) 0.9 L, Monocytes # ( Auto) 0.2, Eosinophils # (Auto) 0.0, Basophils # (Auto) 0.0 Assessment and Plan: 71-year-old female with advanced COPD and chronic hypoxemic/hypercapnic respiratory failure, chronic diastolic CHF, diabetes mellitus type 2, history of CVA, morbid obesity, hypertension, hyperlipidemia, SANDY, GERD, suspected pulmonary hypertension, anxiety and depression who was initially transferred here from [facility]. She had evidently had several recent admissions to a variety of local hospitals for exacerbations of her underlying lung issues. At this point, she is medically mostly ready for discharge (other than a new COPD exacerbation in the last several days), however given her SANDY, there is concern that the patient will not do well at home without some sort of nocturnal support. It is documented that the patient had previously been intolerant of CPAP, but upon my discussion with the patient on Friday, she tells me that she is very worried about her breathing, and is willing to use something while sleeping if that is what she needs. 1. Acute exacerbation of Advanced COPD and chronic hypoxemic/hypercapnic respiratory failure with suspected pulmonary hypertension, and underlying SANDY: Initial acute exacerbation was resolved, but she appears to have a recurrence the past couple days. We started PO prednisone with little improvement, so we changed to IV solumedrol on 10/10. We will continue to work with PFS to arrange a safe discharge. They think that there is a possibility that they may be up to get her a home Trilogy, which she could use . Continue home Spiriva, DuoNeb's, Pulmicort. 2. Chronic diastolic CHF: Echo upon this admission showed preserved ejection fraction with grade 1 diastolic dysfunction. The patient is currently compensated. Continue home Aldactone and Lasix. 3. Diabetes mellitus type 2: Currently holding home glipizide and home metformin. Continue sliding scale insulin while in-house. 4. Acute kidney injury: This has now resolved, and nephrology has signed off. 5. Anxiety and depression: Continue home Zoloft, trazodone, Lexapro, BuSpar. It seems a little odd to me, that the patient is on 2 SSRIs, but these are both reported on her home medications. Upon discussion with her, she knows for sure that she takes zoloft, but does not recognize either the name brand or the generic name of lexapro. Since the lexapro is a very low dose, we have stopped it at this time and are just keeping her on zoloft. 6. History of CVA: Continue home aspirin and statin. Continue blood pressure control 7. Hypertension: Continue home Norvasc, beta samantha, ARB, and diuretics. 8. GERD: Continue home PPI. DVT prophylaxis: Kiarra Dispo: working with PFS to arrange safe discharge. Now that the patient is amenable to nocturnal aids, I believe the patient will benefit from the triology noninvasive vent due to the disease process of chronic respiratory failure. The triology offers the AVAPS mode, which will target a patient's tidal volume based on his ideal body weight. Patient will also benefit from the "sip and puff mode" which is mouth piece ventilation during the day and the mask during the night, thus, utilizing therapy up to 24H per day. The trilogy offers a battery life of up to 6 hours, which can be used in the event of a power outage as interruption of ventilation, which can lead to a serious life threatening event. Will need to clear up current COPD exacerbation prior to discharge. VS, I&O, 24H, Fishbone Vital Signs/I&O Vital Signs Date Time Temp Pulse Resp B/P Pulse Ox O2 Delivery O2 Flow Rate FiO2 10/11/16 09:00 Nasal Cannula 2.0 10/11/16 08:23 86 180/79 10/11/16 06:00 98.6 20 92 I&O- Last 24 Hours up to 6 AM 10/11/16 06:00 Intake Total 457 ml Balance 457 ml Laboratory Data 24H LABS Laboratory Tests 2 10/10/16 17:04: Bedside Glucose (Misc Panel) 221H 10/10/16 20:58: Bedside Glucose (Misc Panel) 233H 10/11/16 06:36: Anion Gap 6L, White Blood Count 11.2H, Red Blood Count 3.61L, Hemoglobin 11.1L, Hematocrit 34.5L, Mean Corpuscular Volume 95.8, Mean Corpuscular Hemoglobin 30.7 , Mean Corpuscular Hemoglobin Concent 32.0, Red Cell Distribution Width 13.9, Platelet Count 305, Neutrophils (%) (Auto) 90.1H, Lymphocytes (%) (Auto) 7.4L, Monocytes (%) (Auto) 1.9, Eosinophils (%) (Auto) 0.2, Basophils (%) (Auto) 0.1, Neutrophils # (Auto) 10.1H, Lymphocytes # (Auto) 0.9L, Monocytes # (Auto) 0.2, Eosinophils # (Auto) 0.0, Basophils # (Auto) 0.0, Blood Urea Nitrogen 25H, Creatinine 0.78, Sodium Level 141, Potassium Level 4.3, Chloride Level 99, Carbon Dioxide Level 36H, Calcium Level 9.5, Glomerular Filtration Rate > 60.0, Large Unclassified Cells # 0.0, Large Unclassified Cells % 0.3, Magnesium Level 2.1 10/11/16 11:30: Bedside Glucose (Misc Panel) 260H CBC/BMP Laboratory Tests 10/11/16 06:36 Calcium Level 9.5, Red Blood Count 3.61 L, Mean Corpuscular Volume 95.8, Mean Corpuscular Hemoglobin 30.7, Mean Corpuscular Hemoglobin Concent 32.0, Red Cell Distribution Width 13.9, Neutrophils (%) (Auto) 90.1 H, Lymphocytes (%) (Auto) 7.4 L, Monocytes (%) (Auto) 1.9, Eosinophils (%) (Auto) 0.2, Basophils (%) (Auto ) 0.1, Neutrophils # (Auto) 10.1 H, Lymphocytes # (Auto) 0.9 L, Monocytes # ( Auto) 0.2, Eosinophils # (Auto) 0.0, Basophils # (Auto) 0.0 MARKIE GARAY Oct 11, 2016 14:48
[2016-10-11 19:34] VITALS: O2SAT 94
[2016-10-11 20:00] VITALS: O2SAT 90
[2016-10-11] MEDS: ATORVASTATIN 10 MG TAB PO SCH (20:16)
[2016-10-11] MEDS: amLODIPine 10 MG TAB PO SCH (20:18)
[2016-10-11] MEDS: rOPINIRole 1MG TAB PO SCH (20:18)
[2016-10-11] MEDS: SERTRALINE HCL 25 MG TABLET PO SCH (20:18)
[2016-10-11] MEDS: LOSARTAN 50 MG TAB PO SCH (20:19)
[2016-10-11] MEDS: traZODone 25MG PER 1/2 TABLET PO PRN (20:38)
[2016-10-11 21:00] VITALS: O2SAT 91
[2016-10-11 22:00] VITALS: BP 145/68; O2SAT 91
[2016-10-11 23:00] VITALS: O2SAT 89
[2016-10-12] VITALS (10 sets, daily range): BP systolic 134–151; BP diastolic 58–73; O2SAT 89–95
[2016-10-12] MEDS: methylPREDNISolone INJ 125 MG/2 ML VIAL (J2930) IV SCH ×3 (00:50→17:23)
[2016-10-12] MEDS: IPRATROPIUM 0.5MG/ALBUTEROL 2.5MG INH SOL UD 3ML (DUONEB)(J7620) NEB SCH ×5 (03:08→20:30)
[2016-10-12 06:16] LABS: EOS % 0.1 % (0.0-3.0); LARGE UNSTAINED CELL # 0.1 K/mm3 (0.0-0.4); LARGE UNSTAINED CELL % 0.4 % (0.0-4.0); LYMPH # 0.9 K/mm3 (1.5-4.5); LYMPH % 7.3 % (24.0-44.0); MEAN CORPUSCULAR HGB CONC 31.7 g/dl (32.0-36.5); MEAN CORPUSCULAR VOLUME 97.7 fl (80.0-96.0); MONO # 0.3 K/mm3 (0.0-0.8); MONO % 2.3 % (0.0-5.0); NEUTROPHILS # 10.6 K/mm3 (1.8-7.7); NEUTROPHILS % 89.9 % (36.0-66.0); PLATELET COUNT, AUTOMATED 285 k/mm3 (150-450); RED CELL DISTRIBUTION WIDTH 13.9 % (11.5-14.5); WHITE BLOOD COUNT 11.8 K/mm3 (4.0-10.0)
[2016-10-12 06:44] LABS: ANION GAP 4 MEQ/L (8-16); BLOOD UREA NITROGEN 29 MG/DL (7-18); CALCIUM LEVEL 8.9 MG/DL (8.8-10.2); CARBON DIOXIDE LEVEL 35 MEQ/L (21-32); CHLORIDE LEVEL 99 MEQ/L (98-107); CREATININE FOR GFR 0.83 MG/DL (0.55-1.02); GLOMERULAR FILTRATION RATE > 60.0 (>45); GLUCOSE, FASTING 257 MG/DL (80-110); MAGNESIUM LEVEL 2.1 MG/DL (1.8-2.4); SODIUM LEVEL 138 MEQ/L (136-145)
[2016-10-12] MEDS: BUDESONIDE 0.5 MG/2 ML INHALATION SUSPENSION INH SCH ×2 (07:14→20:30)
[2016-10-12] MEDS: TIOTROPIUM INHALER/CAPSULE (SPIRIVA) INH SCH (07:16)
--- NOTE | 2016-10-12 08:16 | IPNPDOC ---
Date Seen The patient was seen on 10/12/16. Progress Note Hospitalist Progress Note Subjective: The patient states she still feels like she is wheezing pretty badly Objective: Physical Exam: Vitals: Vital Sign - Last 24 Hours 10/11/16 10/11/16 10/11/16 10/11/16 08:23 09:00 19:34 20:00 Pulse 86 B/P 180/79 Pulse Ox 94 90 O2 Delivery Nasal Cannula Nasal Cannula Nasal Cannula O2 Flow Rate 2.0 4.0 4.0 10/11/16 10/11/16 10/11/16 10/11/16 20:18 21:00 21:00 22:00 Pulse 89 B/P 145/68 Pulse Ox 91 91 O2 Delivery Nasal Cannula Nasal Cannula Nasal Cannula O2 Flow Rate 4.0 4.0 4.0 10/11/16 10/11/16 10/12/16 10/12/16 22:00 23:00 00:00 01:00 Temp 99.3 Pulse 89 Resp 20 B/P 145/68 Pulse Ox 91 89 94 91 O2 Delivery Nasal Cannula Nasal Cannula Nasal Cannula Nasal Cannula O2 Flow Rate 4.0 4.0 4.0 4.0 10/12/16 10/12/16 10/12/16 02:00 03:00 06:00 Temp 97.6 Pulse 87 Resp 20 B/P 142/70 Pulse Ox 93 89 92 O2 Delivery Nasal Cannula Nasal Cannula Nasal Cannula O2 Flow Rate 4.0 4.0 4.0 General: Awake, alert, no acute distress HEENT: Normocephalic, atraumatic, extraocular movements intact CV: Regular rate and rhythm, no murmur Lungs: still very tight with wheezing, not moving much air Abd: Soft, nontender, nondistended Extremities: 1+ edema of the bilateral lower extremities Neuro: Alert and oriented 3, normal speech Psych: normal mood and affect Labs and Imaging: Laboratory Tests 10/12/16 05:55 Calcium Level 8.9, Red Blood Count 3.49 L, Mean Corpuscular Volume 97.7 H, Mean Corpuscular Hemoglobin 31.0, Mean Corpuscular Hemoglobin Concent 31.7 L, Red Cell Distribution Width 13.9, Neutrophils (%) (Auto) 89.9 H, Lymphocytes (%) ( Auto) 7.3 L, Monocytes (%) (Auto) 2.3, Eosinophils (%) (Auto) 0.1, Basophils (% ) (Auto) 0.0, Neutrophils # (Auto) 10.6 H, Lymphocytes # (Auto) 0.9 L, Monocytes # (Auto) 0.3, Eosinophils # (Auto) 0.0, Basophils # (Auto) 0.0 Assessment and Plan: 71-year-old female with advanced COPD and chronic hypoxemic/hypercapnic respiratory failure, chronic diastolic CHF, diabetes mellitus type 2, history of CVA, morbid obesity, hypertension, hyperlipidemia, SANDY, GERD, suspected pulmonary hypertension, anxiety and depression who was initially transferred here from [facility]. She had evidently had several recent admissions to a variety of local hospitals for exacerbations of her underlying lung issues. At this point, she is medically mostly ready for discharge (other than a new COPD exacerbation in the last several days), however given her SANDY, there is concern that the patient will not do well at home without some sort of nocturnal support. It is documented that the patient had previously been intolerant of CPAP, but upon my discussion with the patient on Friday, she tells me that she is very worried about her breathing, and is willing to use something while sleeping if that is what she needs. 1. Acute exacerbation of Advanced COPD and chronic hypoxemic/hypercapnic respiratory failure with suspected pulmonary hypertension, and underlying SANDY: Initial acute exacerbation was resolved, but she appears to have a recurrence the past severak days. We started PO prednisone with little improvement, so we changed to IV solumedrol on 10/10. Still quite tight; will check CXR today. Continue home Spiriva, DuoNeb's, Pulmicort. We will continue to work with PFS to arrange a safe discharge. They think that there is a possibility that they may be up to get her a home Trilogy, which she could use . 2. Chronic diastolic CHF: Echo upon this admission showed preserved ejection fraction with grade 1 diastolic dysfunction. The patient is currently compensated. Continue home Aldactone and Lasix. 3. Diabetes mellitus type 2: Currently holding home glipizide and home metformin. Continue sliding scale insulin while in-house. Glucoses have shot up with initiation of solumedrol; will put on levemir 10u daily while on steroids. 4. Acute kidney injury: This has now resolved, and nephrology has signed off. 5. Anxiety and depression: Continue home Zoloft, trazodone, Lexapro, BuSpar. It seems a little odd to me, that the patient is on 2 SSRIs, but these are both reported on her home medications. Upon discussion with her, she knows for sure that she takes zoloft, but does not recognize either the name brand or the generic name of lexapro. Since the lexapro is a very low dose, we have stopped it at this time and are just keeping her on zoloft. 6. History of CVA: Continue home aspirin and statin. Continue blood pressure control 7. Hypertension: Continue home Norvasc, beta samantha, ARB, and diuretics. 8. GERD: Continue home PPI. DVT prophylaxis: Kiarra Dispo: working with PFS to arrange safe discharge. Now that the patient is amenable to nocturnal aids, I believe the patient will benefit from the triology noninvasive vent due to the disease process of chronic respiratory failure. The triology offers the AVAPS mode, which will target a patient's tidal volume based on his ideal body weight. Patient will also benefit from the "sip and puff mode" which is mouth piece ventilation during the day and the mask during the night, thus, utilizing therapy up to 24H per day. The trilogy offers a battery life of up to 6 hours, which can be used in the event of a power outage as interruption of ventilation, which can lead to a serious life threatening event. Will need to clear up current COPD exacerbation prior to discharge. VS, I&O, 24H, Fishbone Vital Signs/I&O Vital Signs Date Time Temp Pulse Resp B/P Pulse Ox O2 Delivery O2 Flow Rate FiO2 10/12/16 06:00 97.6 87 20 142/70 92 Nasal Cannula 4.0 I&O- Last 24 Hours up to 6 AM 10/12/16 06:00 Intake Total 480 ml Balance 480 ml Laboratory Data 24H LABS Laboratory Tests 2 10/11/16 11:30: Bedside Glucose (Misc Panel) 260H 10/11/16 16:55: Bedside Glucose (Misc Panel) 300H 10/11/16 20:17: Bedside Glucose (Misc Panel) 386H 10/12/16 05:55: Anion Gap 4L, White Blood Count 11.8H, Red Blood Count 3.49L, Hemoglobin 10.8L, Hematocrit 34.1L, Mean Corpuscular Volume 97.7H, Mean Corpuscular Hemoglobin 31.0, Mean Corpuscular Hemoglobin Concent 31.7L, Red Cell Distribution Width 13.9, Platelet Count 285, Neutrophils (%) (Auto) 89.9H, Lymphocytes (%) (Auto) 7.3L, Monocytes (%) (Auto) 2.3, Eosinophils (%) (Auto) 0.1, Basophils (%) (Auto ) 0.0, Neutrophils # (Auto) 10.6H, Lymphocytes # (Auto) 0.9L, Monocytes # (Auto ) 0.3, Eosinophils # (Auto) 0.0, Basophils # (Auto) 0.0, Blood Urea Nitrogen 29H , Creatinine 0.83, Sodium Level 138, Potassium Level 4.0, Chloride Level 99, Carbon Dioxide Level 35H, Calcium Level 8.9, Glomerular Filtration Rate > 60.0, Large Unclassified Cells # 0.1, Large Unclassified Cells % 0.4, Magnesium Level 2.1 CBC/BMP Laboratory Tests 10/12/16 05:55 Calcium Level 8.9, Red Blood Count 3.49 L, Mean Corpuscular Volume 97.7 H, Mean Corpuscular Hemoglobin 31.0, Mean Corpuscular Hemoglobin Concent 31.7 L, Red Cell Distribution Width 13.9, Neutrophils (%) (Auto) 89.9 H, Lymphocytes (%) ( Auto) 7.3 L, Monocytes (%) (Auto) 2.3, Eosinophils (%) (Auto) 0.1, Basophils (% ) (Auto) 0.0, Neutrophils # (Auto) 10.6 H, Lymphocytes # (Auto) 0.9 L, Monocytes # (Auto) 0.3, Eosinophils # (Auto) 0.0, Basophils # (Auto) 0.0 MARKIE GARAY Oct 12, 2016 08:16
--- NOTE | 2016-10-12 08:29 | REP ---
PA and lateral chest: Comparisons are 09/26/2016, 09/16/2016 and 04/07/2016. There is focal increased density inferiorly in the left lung. The cardiac apex. This may represent an infiltrate in the lingula or could be artifact from superimposed left breast. Depending on clinical findings. CT might be considered for further evaluation. Remainder of the left lung is clear. Right lung is clear. Cardiac size is borderline enlarged, unchanged. Signed by Brett Anderson MD 10/12/2016 08:20 A
[2016-10-12] MEDS: HumaLOG INSULIN (NovoLOG) PER UNIT SC SCH ×4 (08:45→20:36)
[2016-10-12] MEDS ORDERED: LEVEMIR (INSULIN DETEMIR) 1 UNITS/0.01ML SC SCH (09:00)
[2016-10-12] MEDS: SPIRONOLACTONE 25 MG TAB PO SCH (09:25)
[2016-10-12] MEDS: busPIRone 5 MG TAB PO SCH ×2 (09:26→20:35)
[2016-10-12] MEDS: FUROSEMIDE 20 MG TAB PO SCH (09:27)
[2016-10-12] MEDS: OMEPRAZOLE 20 MG CAP PO SCH (09:29)
[2016-10-12] MEDS: MAGNESIUM OXIDE 400 MG TAB (MAG-OX) PO SCH (09:29)
[2016-10-12] MEDS: CARVedilol 3.125 MG TAB PO SCH ×2 (09:30→20:34)
[2016-10-12] MEDS: ASPIRIN 81 MG ENTERIC TAB PO SCH (09:30)
[2016-10-12] MEDS: ACETAMINOPHEN TAB 650MG DOSE (2X325MG) PO PRN (09:44)
[2016-10-12] MEDS: ENOXAPARIN 40 MG/0.4 ML SYRINGE (J1650) SC SCH (09:57)
--- NOTE | 2016-10-12 14:10 | REP ---
CT of the chest without IV contrast: Comparison is the PA and lateral chest performed earlier today. There is a focal infiltrate at the inferior tip of the lingula corresponding to the density on the plain film study earlier today. Remainder the lung wright are clear. Cardiac size is borderline enlarged. There is no pericardial effusion. There is no pleural effusion. There is no mediastinal or axillary adenopathy. In the absence of IV contrast the study is insensitive for hilar adenopathy. The visualized upper abdominal contents are unremarkable. Impression: There is a focal infiltrate at the inferior tip of the lingula. Signed by Brett Anderson MD 10/12/2016 02:01 P
[2016-10-12] MEDS: PIPERACILLIN/TAZOBACTAM SOD 3.375 GM in D5W MINI-BAG PLUS 50 ML IV SCH ×2 (14:50→20:33)
[2016-10-12] MEDS ORDERED: VANCOMYCIN HCL 1,000 MG, VIAL MATE ADAPTER 1 EACH in D5W 250 ML IV ONE (15:30)
--- NOTE | 2016-10-12 15:36 | PHACANCOPD ---
PHARMACY VANCOMYCIN DOSING Pt Demographics Demographics Patient Age:71 , Weight:100.000 , Gender: female Adjusted Body Weight Date: 10/12/16, Adjusted Body Weight: Kg Events Past 24 Hours Events Past 24 Hours: YES: Elevation in WBC, NO: Change in CrCl, Dialysis, Diuretic Therapy, Fever, Other, Pending Diagnostics, Pending Procedures Vancomycin Vancomycin indication: HCAP Vancomycin Target Ranges: 15-20 mcg/ml Vancomycin Load Y/N: Yes Load Dose Date Time Vancomycin Load Dose: 1000mg Date: 10/12 Time: ~16:00 Vancomycin Dose Date: 10/12/16. Current Vancomycin Dose: [1g IV q12h @21] Intermittent Dosing?: No Labs Labs Item Value Date Time White Blood Count 10.2 K/mm3 H 10/10/16 0639 White Blood Count 11.2 K/mm3 H 10/11/16 0636 White Blood Count 11.8 K/mm3 H 10/12/16 0555 Creatinine 0.72 MG/DL 10/10/16 0639 Creatinine 0.78 MG/DL 10/11/16 06 Creatinine 0.83 MG/DL 10/12/16 0555 Creatinine Clearance Date:10/12/16. Creatinine Clearance: [72 ml/min]. Assessment and Plan Maintaining Current Dose?: Yes Reason for dose change: No Dose Change Pharmacist Note Pharmacist Note Date: 10/12/16. Pharmacist note: pt was admitted 09/16 for acute respiratory failure, she was treated with a 7 day course of Augmentin on 09/19. She has had worsening WBCs over the past few days, imaging suggests focal infiltrate, pt has been started empirically on Levaquin, Zosyn and Vancomycin. She has not been on vancomycin at our facility in the past and no known MRSA Hx. Cultures since admission have been negative. SCr has been stable throughout her admission and is at baseline. I have started her on vancomycin IV 1g this afternoon and started 1g IV q12h tonight. We will continue to monitor and order a trough as necessary. Regulo Castillo Pharm.D. Oct 12, 2016 15:36
[2016-10-12] MEDS: LevoFLOXacin IV 750 MG in APPROPRIATE DILUENT 1 EA IV SCH (17:56)
[2016-10-12] MEDS: amLODIPine 10 MG TAB PO SCH (20:33)
[2016-10-12] MEDS: traZODone 25MG PER 1/2 TABLET PO PRN (20:34)
[2016-10-12] MEDS: ATORVASTATIN 10 MG TAB PO SCH (20:34)
[2016-10-12] MEDS: LOSARTAN 50 MG TAB PO SCH (20:34)
[2016-10-12] MEDS: SERTRALINE HCL 25 MG TABLET PO SCH (20:34)
[2016-10-12] MEDS: rOPINIRole 1MG TAB PO SCH (20:34)
[2016-10-12] MEDS: VANCOMYCIN HCL 1,000 MG, VIAL MATE ADAPTER 1 EACH in D5W 250 ML IV SCH (21:59)
[2016-10-13] MEDS: PIPERACILLIN/TAZOBACTAM SOD 3.375 GM in D5W MINI-BAG PLUS 50 ML IV SCH ×4 (01:25→19:33)
[2016-10-13] MEDS: methylPREDNISolone INJ 125 MG/2 ML VIAL (J2930) IV SCH ×3 (01:25→17:46)
[2016-10-13] MEDS: IPRATROPIUM 0.5MG/ALBUTEROL 2.5MG INH SOL UD 3ML (DUONEB)(J7620) NEB SCH ×7 (03:12→23:25)
[2016-10-13 06:00] VITALS: BP 150/77
[2016-10-13 06:08] LABS: EOS # 0.1 K/mm3 (0.0-0.50); EOS % 0.9 % (0.0-3.0); LARGE UNSTAINED CELL # 0.1 K/mm3 (0.0-0.4); LARGE UNSTAINED CELL % 0.5 % (0.0-4.0); LYMPH # 0.8 K/mm3 (1.5-4.5); LYMPH % 6.7 % (24.0-44.0); MEAN CORPUSCULAR HEMOGLOBIN 30.7 pg (27.0-33.0); MONO # 0.7 K/mm3 (0.0-0.8); MONO % 5.7 % (0.0-5.0); NEUTROPHILS # 10.3 K/mm3 (1.8-7.7); NEUTROPHILS % 86.2 % (36.0-66.0); PLATELET COUNT, AUTOMATED 322 k/mm3 (150-450); RED CELL DISTRIBUTION WIDTH 13.8 % (11.5-14.5); WHITE BLOOD COUNT 11.9 K/mm3 (4.0-10.0)
[2016-10-13 06:26] LABS: ANION GAP 4 MEQ/L (8-16); BLOOD UREA NITROGEN 26 MG/DL (7-18); CALCIUM LEVEL 8.5 MG/DL (8.8-10.2); CARBON DIOXIDE LEVEL 36 MEQ/L (21-32); CHLORIDE LEVEL 100 MEQ/L (98-107); CREATININE FOR GFR 0.83 MG/DL (0.55-1.02); GLOMERULAR FILTRATION RATE > 60.0 (>45); GLUCOSE, FASTING 237 MG/DL (80-110); POTASSIUM SERUM 4.4 MEQ/L (3.5-5.1); SODIUM LEVEL 140 MEQ/L (136-145)
[2016-10-13] MEDS: BUDESONIDE 0.5 MG/2 ML INHALATION SUSPENSION INH SCH ×2 (07:17→19:34)
[2016-10-13] MEDS: TIOTROPIUM INHALER/CAPSULE (SPIRIVA) INH SCH (07:17)
[2016-10-13] MEDS: CARVedilol 3.125 MG TAB PO SCH ×2 (08:32→20:33)
[2016-10-13] MEDS: ENOXAPARIN 40 MG/0.4 ML SYRINGE (J1650) SC SCH (08:32)
[2016-10-13] MEDS: MAGNESIUM OXIDE 400 MG TAB (MAG-OX) PO SCH (08:33)
[2016-10-13] MEDS: ASPIRIN 81 MG ENTERIC TAB PO SCH (08:33)
[2016-10-13] MEDS: busPIRone 5 MG TAB PO SCH ×2 (08:33→20:32)
[2016-10-13] MEDS: SPIRONOLACTONE 25 MG TAB PO SCH (08:33)
[2016-10-13] MEDS: FUROSEMIDE 20 MG TAB PO SCH (08:33)
[2016-10-13] MEDS: OMEPRAZOLE 20 MG CAP PO SCH (08:33)
[2016-10-13] MEDS: HumaLOG INSULIN (NovoLOG) PER UNIT SC SCH ×4 (08:34→20:34)
[2016-10-13] MEDS: VANCOMYCIN HCL 1,000 MG, VIAL MATE ADAPTER 1 EACH in D5W 250 ML IV SCH ×2 (08:35→20:42)
[2016-10-13] MEDS: LEVEMIR (INSULIN DETEMIR) 1 UNITS/0.01ML SC SCH (08:40)
--- NOTE | 2016-10-13 11:04 | IPNPDOC ---
Date Seen The patient was seen on 10/13/16. Progress Note Hospitalist Progress Note Subjective: The patient states that she is bruising badly on her belly from the shots; she also says she feels very little change in her breathing Objective: Physical Exam: Vitals: Vital Sign - Last 24 Hours 10/12/16 10/12/16 10/12/16 10/12/16 13:45 14:00 14:19 19:51 Temp 98.2 Pulse 72 Resp 20 B/P 143/64 Pulse Ox 94 94 O2 Delivery Nasal Cannula Nasal Cannula Nasal Cannula Nasal Cannula O2 Flow Rate 3.0 3.0 3.0 3.0 10/12/16 10/12/16 10/12/16 10/13/16 20:22 20:33 22:00 06:00 Temp 98.3 97.5 Pulse 80 80 81 Resp 22 20 B/P 151/73 151/73 150/77 Pulse Ox 94 94 90 O2 Delivery Nasal Cannula Nasal Cannula Nasal Cannula O2 Flow Rate 4.0 3.0 3.0 10/13/16 08:32 Pulse 81 B/P 150/77 General: Awake, alert, no acute distress HEENT: Normocephalic, atraumatic, extraocular movements intact CV: Regular rate and rhythm, no murmur Lungs: still tight but moving a little more air than yesterday, prolonged exp phase, end exp wheeze on right side Abd: Soft, nontender, nondistended, multiple large superficial hematomas Extremities: 1+ edema of the bilateral lower extremities Neuro: Alert and oriented 3, normal speech Psych: normal mood and affect Labs and Imaging: Laboratory Tests 10/13/16 05:48 Calcium Level 8.5 L, Red Blood Count 3.66 L, Mean Corpuscular Volume 96.0, Mean Corpuscular Hemoglobin 30.7, Mean Corpuscular Hemoglobin Concent 32.0, Red Cell Distribution Width 13.8, Neutrophils (%) (Auto) 86.2 H, Lymphocytes (%) (Auto) 6.7 L, Monocytes (%) (Auto) 5.7 H, Eosinophils (%) (Auto) 0.9, Basophils (%) ( Auto) 0.0, Neutrophils # (Auto) 10.3 H, Lymphocytes # (Auto) 0.8 L, Monocytes # (Auto) 0.7, Eosinophils # (Auto) 0.1, Basophils # (Auto) 0.0 Assessment and Plan: 71-year-old female with advanced COPD and chronic hypoxemic/hypercapnic respiratory failure, chronic diastolic CHF, diabetes mellitus type 2, history of CVA, morbid obesity, hypertension, hyperlipidemia, SANDY, GERD, suspected pulmonary hypertension, anxiety and depression who was initially transferred here from [facility]. She had evidently had several recent admissions to a variety of local hospitals for exacerbations of her underlying lung issues. Given her SANDY, there is concern that the patient will not do well at home without some sort of nocturnal support. It is documented that the patient had previously been intolerant of CPAP, but upon my discussion with the patient last week, she tells me that she is very worried about her breathing, and is willing to use something while sleeping if that is what she needs. In the last week, she has developed a new COPD exacerbation, as well as an HCAP. 1. Acute exacerbation of Advanced COPD and chronic hypoxemic/hypercapnic respiratory failure with suspected pulmonary hypertension, and underlying SANDY: Initial acute exacerbation was resolved, but she appears to have a recurrence the past week. We started PO prednisone with little improvement, so we changed to IV solumedrol on 10/10. Still quite tight. Continue home Spiriva, DuoNeb's, Pulmicort. We will continue to work with PFS to arrange a safe discharge. They think that there is a possibility that they may be up to get her a home Trilogy , which she could use . 2. Chronic diastolic CHF: Echo upon this admission showed preserved ejection fraction with grade 1 diastolic dysfunction. The patient is currently compensated. Continue home Aldactone and Lasix. 3. Diabetes mellitus type 2: Currently holding home glipizide and home metformin. Continue sliding scale insulin while in-house. Glucoses have shot up with initiation of solumedrol; will put on levemir while on steroids. Started out at 10u daily, but will increase to 22u daily based on yesterday's SSI requirements. 4. Acute kidney injury: This has now resolved, and nephrology has signed off. 5. Anxiety and depression: Continue home Zoloft, trazodone, Lexapro, BuSpar. It seems a little odd to me, that the patient is on 2 SSRIs, but these are both reported on her home medications. Upon discussion with her, she knows for sure that she takes zoloft, but does not recognize either the name brand or the generic name of lexapro. Since the lexapro is a very low dose, we have stopped it at this time and are just keeping her on zoloft. 6. History of CVA: Continue home aspirin and statin. Continue blood pressure control 7. Hypertension: Continue home Norvasc, beta samantha, ARB, and diuretics. 8. GERD: Continue home PPI. 9. HCAP: In the last week, patient appeared to develop a COPD exacerbation. She did not improve with steroids, and imaging shows concern for PNA in the lingula. She has been afebrile, but she did develop a mild leukocytosis. Given that this seemed to coincide with initiation of steroids, it is difficult to tell if it is indicative of the PNA or secondary to the steroids. She was started on vanc/levaquin/zosyn on 10/12. DVT prophylaxis: change to SCDs given superficial abd hematomas Dispo: working with PFS to arrange safe discharge. Now that the patient is amenable to nocturnal aids, I believe the patient will benefit from the triology noninvasive vent due to the disease process of chronic respiratory failure. The triology offers the AVAPS mode, which will target a patient's tidal volume based on his ideal body weight. Patient will also benefit from the "sip and puff mode" which is mouth piece ventilation during the day and the mask during the night, thus, utilizing therapy up to 24H per day. The trilogy offers a battery life of up to 6 hours, which can be used in the event of a power outage as interruption of ventilation, which can lead to a serious life threatening event. Will need to clear up current COPD exacerbation and PNA prior to discharge. VS, I&O, 24H, Fishbone Vital Signs/I&O Vital Signs Date Time Temp Pulse Resp B/P Pulse Ox O2 Delivery O2 Flow Rate FiO2 10/13/16 08:32 81 150/77 10/13/16 06:00 97.5 20 90 Nasal Cannula 3.0 I&O- Last 24 Hours up to 6 AM 10/13/16 06:00 Intake Total 1634 ml Output Total 1415 ml Balance 219 ml Laboratory Data 24H LABS Laboratory Tests 2 10/12/16 11:47: Bedside Glucose (Misc Panel) 322H 10/12/16 16:56: Bedside Glucose (Misc Panel) 264H 10/12/16 20:05: Bedside Glucose (Misc Panel) 377H 10/13/16 05:48: Anion Gap 4L, White Blood Count 11.9H, Red Blood Count 3.66L, Hemoglobin 11.2L, Hematocrit 35.1L, Mean Corpuscular Volume 96.0, Mean Corpuscular Hemoglobin 30.7 , Mean Corpuscular Hemoglobin Concent 32.0, Red Cell Distribution Width 13.8, Platelet Count 322, Neutrophils (%) (Auto) 86.2H, Lymphocytes (%) (Auto) 6.7L, Monocytes (%) (Auto) 5.7H, Eosinophils (%) (Auto) 0.9, Basophils (%) (Auto) 0.0 , Neutrophils # (Auto) 10.3H, Lymphocytes # (Auto) 0.8L, Monocytes # (Auto) 0.7 , Eosinophils # (Auto) 0.1, Basophils # (Auto) 0.0, Blood Urea Nitrogen 26H, Creatinine 0.83, Sodium Level 140, Potassium Level 4.4, Chloride Level 100, Carbon Dioxide Level 36H, Calcium Level 8.5L, Glomerular Filtration Rate > 60.0 , Large Unclassified Cells # 0.1, Large Unclassified Cells % 0.5, Magnesium Level 2.0 CBC/BMP Laboratory Tests 10/13/16 05:48 Calcium Level 8.5 L, Red Blood Count 3.66 L, Mean Corpuscular Volume 96.0, Mean Corpuscular Hemoglobin 30.7, Mean Corpuscular Hemoglobin Concent 32.0, Red Cell Distribution Width 13.8, Neutrophils (%) (Auto) 86.2 H, Lymphocytes (%) (Auto) 6.7 L, Monocytes (%) (Auto) 5.7 H, Eosinophils (%) (Auto) 0.9, Basophils (%) ( Auto) 0.0, Neutrophils # (Auto) 10.3 H, Lymphocytes # (Auto) 0.8 L, Monocytes # (Auto) 0.7, Eosinophils # (Auto) 0.1, Basophils # (Auto) 0.0 MARKIE GARAY Oct 13, 2016 11:04
[2016-10-13 14:00] VITALS: BP 149/71
[2016-10-13] MEDS: LevoFLOXacin IV 750 MG in APPROPRIATE DILUENT 1 EA IV SCH (17:46)
[2016-10-13 19:26] VITALS: O2SAT 95
[2016-10-13] MEDS: rOPINIRole 1MG TAB PO SCH (20:32)
[2016-10-13] MEDS: traZODone 25MG PER 1/2 TABLET PO PRN (20:32)
[2016-10-13] MEDS: SERTRALINE HCL 25 MG TABLET PO SCH (20:32)
[2016-10-13] MEDS: ATORVASTATIN 10 MG TAB PO SCH (20:33)
[2016-10-13] MEDS: ACETAMINOPHEN TAB 650MG DOSE (2X325MG) PO PRN (20:33)
[2016-10-13] MEDS: amLODIPine 10 MG TAB PO SCH (20:33)
[2016-10-13] MEDS: LOSARTAN 50 MG TAB PO SCH (20:34)
[2016-10-13 22:00] VITALS: BP 140/65
[2016-10-13 22:35] VITALS: O2SAT 94
[2016-10-14] MEDS: methylPREDNISolone INJ 125 MG/2 ML VIAL (J2930) IV SCH ×3 (00:57→18:08)
[2016-10-14] MEDS: PIPERACILLIN/TAZOBACTAM SOD 3.375 GM in D5W MINI-BAG PLUS 50 ML IV SCH ×4 (01:01→20:30)
[2016-10-14] MEDS: IPRATROPIUM 0.5MG/ALBUTEROL 2.5MG INH SOL UD 3ML (DUONEB)(J7620) NEB SCH ×6 (04:00→23:37)
[2016-10-14 06:00] VITALS: BP 138/84
[2016-10-14] MEDS: BUDESONIDE 0.5 MG/2 ML INHALATION SUSPENSION INH SCH ×2 (07:25→23:36)
[2016-10-14] MEDS: TIOTROPIUM INHALER/CAPSULE (SPIRIVA) INH SCH (07:25)
[2016-10-14 08:20] LABS: EOS % 0.2 % (0.0-3.0); LARGE UNSTAINED CELL # 0.1 K/mm3 (0.0-0.4); LARGE UNSTAINED CELL % 0.5 % (0.0-4.0); LYMPH # 0.7 K/mm3 (1.5-4.5); LYMPH % 6.3 % (24.0-44.0); MEAN CORPUSCULAR HGB CONC 31.2 g/dl (32.0-36.5); MONO # 0.2 K/mm3 (0.0-0.8); MONO % 2.2 % (0.0-5.0); NEUTROPHILS # 9.9 K/mm3 (1.8-7.7); NEUTROPHILS % 90.9 % (36.0-66.0); PLATELET COUNT, AUTOMATED 311 k/mm3 (150-450); RED CELL DISTRIBUTION WIDTH 13.7 % (11.5-14.5); WHITE BLOOD COUNT 10.9 K/mm3 (4.0-10.0)
[2016-10-14 08:26] LABS: ANION GAP 4 MEQ/L (8-16); BLOOD UREA NITROGEN 29 MG/DL (7-18); CALCIUM LEVEL 8.6 MG/DL (8.8-10.2); CARBON DIOXIDE LEVEL 37 MEQ/L (21-32); CHLORIDE LEVEL 97 MEQ/L (98-107); CREATININE FOR GFR 0.91 MG/DL (0.55-1.02); GLOMERULAR FILTRATION RATE > 60.0 (>45); GLUCOSE, FASTING 250 MG/DL (80-110); MAGNESIUM LEVEL 2.1 MG/DL (1.8-2.4); POTASSIUM SERUM 4.4 MEQ/L (3.5-5.1); SODIUM LEVEL 138 MEQ/L (136-145)
[2016-10-14] MEDS: VANCOMYCIN HCL 1,000 MG, VIAL MATE ADAPTER 1 EACH in D5W 250 ML IV SCH ×2 (08:28→21:45)
[2016-10-14] MEDS: LEVEMIR (INSULIN DETEMIR) 1 UNITS/0.01ML SC SCH (08:28)
[2016-10-14] MEDS: HumaLOG INSULIN (NovoLOG) PER UNIT SC SCH ×4 (08:29→21:00)
[2016-10-14] MEDS: ASPIRIN 81 MG ENTERIC TAB PO SCH (08:30)
[2016-10-14] MEDS: MAGNESIUM OXIDE 400 MG TAB (MAG-OX) PO SCH (08:30)
[2016-10-14] MEDS: FUROSEMIDE 20 MG TAB PO SCH (08:30)
[2016-10-14] MEDS: OMEPRAZOLE 20 MG CAP PO SCH (08:30)
[2016-10-14] MEDS: busPIRone 5 MG TAB PO SCH ×2 (08:30→21:07)
[2016-10-14] MEDS: CARVedilol 3.125 MG TAB PO SCH ×2 (08:31→21:09)
[2016-10-14] MEDS: SPIRONOLACTONE 25 MG TAB PO SCH (08:31)
--- NOTE | 2016-10-14 13:16 | PHACANCOPD ---
PHARMACY VANCOMYCIN DOSING Pt Demographics Demographics Patient Age:71 , Weight:101.700 , Gender: female Adjusted Body Weight Date: 10/12/16, Adjusted Body Weight: Kg Events Past 24 Hours Events Past 24 Hours: NO: Change in CrCl, Dialysis, Diuretic Therapy, Elevation in WBC, Fever, Other, Pending Diagnostics, Pending Procedures Vancomycin Vancomycin indication: HCAP Vancomycin Target Ranges: 15-20 mcg/ml Vancomycin Load Y/N: Yes Load Dose Date Time Vancomycin Load Dose: 1000mg Date: 10/12 Time: ~16:00 Vancomycin Dose Date: 10/14/16. Current Vancomycin Dose: [1GM IV q12h@21] Date: 10/12/16. Current Vancomycin Dose: [1g IV q12h @21] Intermittent Dosing?: No Labs Labs Item Value Date Time White Blood Count 11.9 K/mm3 H 10/13/16 0548 White Blood Count 10.9 K/mm3 H 10/14/16 0756 Creatinine 0.83 MG/DL 10/13/16 0548 Creatinine 0.91 MG/DL 10/14/16 0756 Vancomycin Level Trough 15.4 UG/ML 10/14/16 0756 Vital Signs Label Value Date Time Patient Temperature 98.7 degrees F 10/14/16 0600 Temperature Source Core 10/14/16 0600 Creatinine Clearance Date:10/12/16. Creatinine Clearance: [72 ml/min]. Assessment and Plan Maintaining Current Dose?: Yes Reason for dose change: No Dose Change Pharmacist Note Pharmacist Note 10/14: Patient's trough came back at 15.4 this morning. We will continue her on Vancomycin 1gm IV q12h. Her WBC is trending down, and she is afebrile. All her micro is negative so far. We will continue to monitor and make adjustments as necessary. Date: 10/12/16. Pharmacist note: pt was admitted 09/16 for acute respiratory failure, she was treated with a 7 day course of Augmentin on 09/19. She has had worsening WBCs over the past few days, imaging suggests focal infiltrate, pt has been started empirically on Levaquin, Zosyn and Vancomycin. She has not been on vancomycin at our facility in the past and no known MRSA Hx. Cultures since admission have been negative. SCr has been stable throughout her admission and is at baseline. I have started her on vancomycin IV 1g this afternoon and started 1g IV q12h tonight. We will continue to monitor and order a trough as necessary. SAUL [facility]ARTMAN [facility] Oct 14, 2016 13:16
--- NOTE | 2016-10-14 17:57 | IPNPDOC ---
Date Seen The patient was seen on 10/14/16. Progress Note Hospitalist Progress Note Subjective: The patient does not think her breathing is much better Objective: Physical Exam: Vitals: Vital Sign - Last 24 Hours 10/13/16 10/13/16 10/13/16 10/13/16 19:26 20:33 21:00 22:00 Temp 98.8 Pulse 80 80 Resp 20 B/P 140/65 140/65 Pulse Ox 95 92 O2 Delivery Nasal Cannula Nasal Cannula Nasal Cannula O2 Flow Rate 4.0 3.0 3.0 10/13/16 10/13/16 10/14/16 10/14/16 22:32 22:35 06:00 08:31 Temp 98.7 Pulse 75 75 Resp 20 B/P 138/84 138/84 Pulse Ox 94 94 94 O2 Delivery Nasal Cannula Nasal Cannula Nasal Cannula O2 Flow Rate 3.0 3.0 3.0 General: Awake, alert, no acute distress HEENT: Normocephalic, atraumatic, extraocular movements intact CV: Regular rate and rhythm, no murmur Lungs: still tight but moving a little more air than yesterday, prolonged exp phase, end exp wheeze on right side Abd: Soft, nontender, nondistended, multiple large superficial hematomas Extremities: 1+ edema of the bilateral lower extremities Neuro: Alert and oriented 3, normal speech Psych: normal mood and affect Labs and Imaging: Laboratory Tests 10/14/16 07:56 Calcium Level 8.6 L, Red Blood Count 3.84 L, Mean Corpuscular Volume 96.0, Mean Corpuscular Hemoglobin 30.0, Mean Corpuscular Hemoglobin Concent 31.2 L, Red Cell Distribution Width 13.7, Neutrophils (%) (Auto) 90.9 H, Lymphocytes (%) ( Auto) 6.3 L, Monocytes (%) (Auto) 2.2, Eosinophils (%) (Auto) 0.2, Basophils (% ) (Auto) 0.0, Neutrophils # (Auto) 9.9 H, Lymphocytes # (Auto) 0.7 L, Monocytes # (Auto) 0.2, Eosinophils # (Auto) 0.0, Basophils # (Auto) 0.0 Assessment and Plan: 71-year-old female with advanced COPD and chronic hypoxemic/hypercapnic respiratory failure, chronic diastolic CHF, diabetes mellitus type 2, history of CVA, morbid obesity, hypertension, hyperlipidemia, SANDY, GERD, suspected pulmonary hypertension, anxiety and depression who was initially transferred here from [facility]. She had evidently had several recent admissions to a variety of local hospitals for exacerbations of her underlying lung issues. Given her SANDY, there is concern that the patient will not do well at home without some sort of nocturnal support. It is documented that the patient had previously been intolerant of CPAP, but upon my discussion with the patient last week, she tells me that she is very worried about her breathing, and is willing to use something while sleeping if that is what she needs. In the last week, she has developed a new COPD exacerbation, as well as an HCAP. 1. Acute exacerbation of Advanced COPD and chronic hypoxemic/hypercapnic respiratory failure with suspected pulmonary hypertension, and underlying SANDY: Initial acute exacerbation was resolved, but she appears to have a recurrence the past week. We started PO prednisone with little improvement, so we changed to IV solumedrol on 10/10. Still quite tight. Continue home Spiriva, DuoNeb's, Pulmicort. We will continue to work with PFS to arrange a safe discharge. They think that there is a possibility that they may be up to get her a home Trilogy , which she could use . 2. Chronic diastolic CHF: Echo upon this admission showed preserved ejection fraction with grade 1 diastolic dysfunction. The patient is currently compensated. Continue home Aldactone and Lasix. 3. Diabetes mellitus type 2: Currently holding home glipizide and home metformin. Continue sliding scale insulin while in-house. Glucoses have shot up with initiation of solumedrol; will put on levemir while on steroids. Started out at 10u daily, but have now increased to 22u daily. 4. Acute kidney injury: This has now resolved, and nephrology has signed off. 5. Anxiety and depression: Continue home Zoloft, trazodone, Lexapro, BuSpar. It seems a little odd to me, that the patient is on 2 SSRIs, but these are both reported on her home medications. Upon discussion with her, she knows for sure that she takes zoloft, but does not recognize either the name brand or the generic name of lexapro. Since the lexapro is a very low dose, we have stopped it at this time and are just keeping her on zoloft. 6. History of CVA: Continue home aspirin and statin. Continue blood pressure control 7. Hypertension: Continue home Norvasc, beta samantha, ARB, and diuretics. 8. GERD: Continue home PPI. 9. HCAP: In the last week, patient appeared to develop a COPD exacerbation. She did not improve with steroids, and imaging shows concern for PNA in the lingula. She has been afebrile, but she did develop a mild leukocytosis. Given that this seemed to coincide with initiation of steroids, it is difficult to tell if it is indicative of the PNA or secondary to the steroids. She was started on vanc/levaquin/zosyn on 10/12. She has only had 48h of antibiotics at this point, and her exam is not much improved; continue current abx. DVT prophylaxis: SCDs given superficial abd hematomas Dispo: working with PFS to arrange safe discharge. Now that the patient is amenable to nocturnal aids, I believe the patient will benefit from the triology noninvasive vent due to the disease process of chronic respiratory failure. The triology offers the AVAPS mode, which will target a patient's tidal volume based on his ideal body weight. Patient will also benefit from the "sip and puff mode" which is mouth piece ventilation during the day and the mask during the night, thus, utilizing therapy up to 24H per day. The trilogy offers a battery life of up to 6 hours, which can be used in the event of a power outage as interruption of ventilation, which can lead to a serious life threatening event. Will need to clear up current COPD exacerbation and PNA prior to discharge. VS, I&O, 24H, Fishbone Vital Signs/I&O Vital Signs Date Time Temp Pulse Resp B/P Pulse Ox O2 Delivery O2 Flow Rate FiO2 10/14/16 08:31 75 138/84 10/14/16 06:00 98.7 20 94 Nasal Cannula 3.0 I&O- Last 24 Hours up to 6 AM 10/14/16 06:00 Intake Total 2310 ml Output Total 3450 ml Balance -1140 ml Laboratory Data 24H LABS Laboratory Tests 2 10/13/16 20:20: Bedside Glucose (Misc Panel) 323H 10/14/16 07:56: Anion Gap 4L, White Blood Count 10.9H, Red Blood Count 3.84L, Hemoglobin 11.5L, Hematocrit 36.9, Mean Corpuscular Volume 96.0, Mean Corpuscular Hemoglobin 30.0 , Mean Corpuscular Hemoglobin Concent 31.2L, Red Cell Distribution Width 13.7, Platelet Count 311, Neutrophils (%) (Auto) 90.9H, Lymphocytes (%) (Auto) 6.3L, Monocytes (%) (Auto) 2.2, Eosinophils (%) (Auto) 0.2, Basophils (%) (Auto) 0.0, Neutrophils # (Auto) 9.9H, Lymphocytes # (Auto) 0.7L, Monocytes # (Auto) 0.2, Eosinophils # (Auto) 0.0, Basophils # (Auto) 0.0, Blood Urea Nitrogen 29H, Creatinine 0.91, Sodium Level 138, Potassium Level 4.4, Chloride Level 97L, Carbon Dioxide Level 37H, Calcium Level 8.6L, Glomerular Filtration Rate > 60.0 , Large Unclassified Cells # 0.1, Large Unclassified Cells % 0.5, Magnesium Level 2.1, Vancomycin Level Trough 15.4 10/14/16 11:41: Bedside Glucose (Misc Panel) 371H 10/14/16 16:50: Bedside Glucose (Misc Panel) 319H CBC/BMP Laboratory Tests 10/14/16 07:56 Calcium Level 8.6 L, Red Blood Count 3.84 L, Mean Corpuscular Volume 96.0, Mean Corpuscular Hemoglobin 30.0, Mean Corpuscular Hemoglobin Concent 31.2 L, Red Cell Distribution Width 13.7, Neutrophils (%) (Auto) 90.9 H, Lymphocytes (%) ( Auto) 6.3 L, Monocytes (%) (Auto) 2.2, Eosinophils (%) (Auto) 0.2, Basophils (% ) (Auto) 0.0, Neutrophils # (Auto) 9.9 H, Lymphocytes # (Auto) 0.7 L, Monocytes # (Auto) 0.2, Eosinophils # (Auto) 0.0, Basophils # (Auto) 0.0 MARKIE GARAY Oct 14, 2016 17:57
[2016-10-14] MEDS: LevoFLOXacin IV 750 MG in APPROPRIATE DILUENT 1 EA IV SCH (18:08)
[2016-10-14] MEDS: ACETAMINOPHEN TAB 650MG DOSE (2X325MG) PO PRN (21:07)
[2016-10-14] MEDS: traZODone 25MG PER 1/2 TABLET PO PRN (21:07)
[2016-10-14] MEDS: ATORVASTATIN 10 MG TAB PO SCH (21:08)
[2016-10-14] MEDS: LOSARTAN 50 MG TAB PO SCH (21:08)
[2016-10-14] MEDS: rOPINIRole 1MG TAB PO SCH (21:08)
[2016-10-14] MEDS: SERTRALINE HCL 25 MG TABLET PO SCH (21:08)
[2016-10-14] MEDS: amLODIPine 10 MG TAB PO SCH (21:08)
[2016-10-14 22:00] VITALS: BP 143/66
[2016-10-14 23:38] VITALS: O2SAT 96
[2016-10-15] MEDS: methylPREDNISolone INJ 125 MG/2 ML VIAL (J2930) IV SCH ×3 (01:40→17:00)
[2016-10-15] MEDS: PIPERACILLIN/TAZOBACTAM SOD 3.375 GM in D5W MINI-BAG PLUS 50 ML IV SCH (01:40)
[2016-10-15] MEDS: IPRATROPIUM 0.5MG/ALBUTEROL 2.5MG INH SOL UD 3ML (DUONEB)(J7620) NEB SCH ×6 (04:00→23:22)
[2016-10-15 06:00] VITALS: BP 150/76
[2016-10-15] MEDS ORDERED: LevoFLOXacin 500 MG TABLET PO SCH (06:00)
[2016-10-15] MEDS: BUDESONIDE 0.5 MG/2 ML INHALATION SUSPENSION INH SCH ×2 (07:10→19:22)
[2016-10-15] MEDS: TIOTROPIUM INHALER/CAPSULE (SPIRIVA) INH SCH (07:11)
[2016-10-15 07:22] LABS: BASO % 0.2 % (0.0-1.0); EOS % 0.1 % (0.0-3.0); LARGE UNSTAINED CELL % 0.3 % (0.0-4.0); LYMPH # 0.6 K/mm3 (1.5-4.5); LYMPH % 5.8 % (24.0-44.0); MEAN CORPUSCULAR HEMOGLOBIN 30.2 pg (27.0-33.0); MEAN CORPUSCULAR HGB CONC 32.2 g/dl (32.0-36.5); MEAN CORPUSCULAR VOLUME 93.8 fl (80.0-96.0); MONO # 0.2 K/mm3 (0.0-0.8); MONO % 2.3 % (0.0-5.0); NEUTROPHILS # 8.6 K/mm3 (1.8-7.7); NEUTROPHILS % 91.2 % (36.0-66.0); PLATELET COUNT, AUTOMATED 308 k/mm3 (150-450); RED CELL DISTRIBUTION WIDTH 13.7 % (11.5-14.5); WHITE BLOOD COUNT 9.4 K/mm3 (4.0-10.0)
[2016-10-15 07:38] LABS: ANION GAP 5 MEQ/L (8-16); BLOOD UREA NITROGEN 28 MG/DL (7-18); CALCIUM LEVEL 8.6 MG/DL (8.8-10.2); CARBON DIOXIDE LEVEL 38 MEQ/L (21-32); CHLORIDE LEVEL 95 MEQ/L (98-107); CREATININE FOR GFR 0.82 MG/DL (0.55-1.02); GLOMERULAR FILTRATION RATE > 60.0 (>45); GLUCOSE, FASTING 270 MG/DL (80-110); POTASSIUM SERUM 4.3 MEQ/L (3.5-5.1); SODIUM LEVEL 138 MEQ/L (136-145)
[2016-10-15] MEDS: OMEPRAZOLE 20 MG CAP PO SCH (08:50)
[2016-10-15] MEDS: CARVedilol 3.125 MG TAB PO SCH ×2 (08:51→20:22)
[2016-10-15] MEDS: busPIRone 5 MG TAB PO SCH ×2 (08:51→20:23)
[2016-10-15] MEDS: FUROSEMIDE 20 MG TAB PO SCH (08:51)
[2016-10-15] MEDS: MAGNESIUM OXIDE 400 MG TAB (MAG-OX) PO SCH (08:51)
[2016-10-15] MEDS: ASPIRIN 81 MG ENTERIC TAB PO SCH (08:52)
[2016-10-15] MEDS: SPIRONOLACTONE 25 MG TAB PO SCH (08:52)
[2016-10-15] MEDS: HumaLOG INSULIN (NovoLOG) PER UNIT SC SCH ×4 (08:52→21:00)
[2016-10-15] MEDS: LEVEMIR (INSULIN DETEMIR) 1 UNITS/0.01ML SC SCH (08:53)
[2016-10-15] MEDS ORDERED: LevoFLOXacin 500 MG TABLET PO ONE (09:00)
--- NOTE | 2016-10-15 09:12 | IPN ---
DATE: 10/15/2016 71-year-old female seen at bedside. She is sitting eating her breakfast. She feels that her breathing is moderately better. She continues on 2 liters oxygen, but she is having a nonproductive cough with intermittent wheeze. No fevers reported overnight. She denies any chest pain. No nausea or vomiting. OBJECTIVE: Temperature is 98.9, pulse 80, respiratory rate 16, blood pressure (BP) 150/76, SPO2 is 92% on 3 liters. General: The patient appears to be in no acute distress. Is alert and oriented. HEENT: Unremarkable. Lungs: Expiratory wheeze in bilateral bases. No rhonchi. She does have a prolonged expiratory phase which is likely related to her underlying lung disease. Heart: Regular rate and rhythm. Abdomen: Soft, obese, nontender, nondistended. Positive bowel sounds. No masses. No rebound. Extremities: No edema. No calf tenderness. LABORATORY DATA: White count is 9.4, hemoglobin 12.0, platelets 308,000. Sodium 138, potassium 4.3, chloride 95, bicarb 38, anion gap 5, BUN is 28, creatinine 0.82, glucose is 270, calcium 8.6, magnesium 2.0. Blood cultures times two negative for 5 days. ASSESSMENT/PLAN: 1. Acute on chronic hypoxic hypercarbic respiratory failure with suspected underlying pulmonary hypertension and likely the development of health care associated pneumonia (HCAP), as well as acute exacerbation of her advanced chronic obstructive pulmonary disease (COPD). Will continue with DuoNebs and Spiriva. Will change her to by mouth antibiotics today with Levaquin. She remains afebrile with the broad spectrum antibiotics for the last few days with no culture growth. Therefore, will de-escalate her antibiotics today and see how she does. Reevaluate tomorrow. 2. Chronic diastolic congestive heart failure with grade 1 diastolic dysfunction seen on echocardiogram with preserved ejection fraction last visit. Will continue Aldactone and Lasix. 3. Diabetes type 2. Continue with sliding scale coverage. She is currently on Levemir while she is on Solu-Medrol. Will continue to keep an eye on this to see if we can make any further adjustments. 4. Acute kidney injury, resolved. Nephrology has signed off. 5. Anxiety and depression, stable on Zoloft, trazodone, Lexapro and BuSpar, which I agree with. It is strange that she is on two SSRIs, but are both reported on her home medication list. Would recommend that she follow up with her psychiatrist once she is discharged. In the meantime, she has no suicidal ideation and no audiovisual hallucinations. 6. History of CVA. Continue aspirin and statin. Blood pressure, will make sure that is adequately controlled. 7. Hypertension. Continue on beta-samantha, diuretics and Norvasc as outlined previously. 8. Gastroesophageal reflux disease (GERD). Continue proton pump inhibitor (PPI). 9. Deep vein thrombosis (DVT) prophylaxis. Sequential compression devices (SCDs) due to history of superficial abdominal hematomas. DISPOSITION: [facility] is involved with the patient. She has a Trilogy with AVAPS mode. This has been arranged for home. Will see how she does over the next 24-48 hours to see if she is ready for home discharge. I
[2016-10-15 14:00] VITALS: BP 144/64
[2016-10-15] MEDS: traZODone 25MG PER 1/2 TABLET PO PRN (20:21)
[2016-10-15] MEDS: rOPINIRole 1MG TAB PO SCH (20:21)
[2016-10-15] MEDS: LOSARTAN 50 MG TAB PO SCH (20:22)
[2016-10-15] MEDS: SERTRALINE HCL 25 MG TABLET PO SCH (20:22)
[2016-10-15] MEDS: amLODIPine 10 MG TAB PO SCH (20:23)
[2016-10-15] MEDS: ATORVASTATIN 10 MG TAB PO SCH (20:23)
[2016-10-15] MEDS: ACETAMINOPHEN TAB 650MG DOSE (2X325MG) PO PRN (20:25)
[2016-10-15 22:00] VITALS: BP 143/65
[2016-10-16] MEDS: methylPREDNISolone INJ 125 MG/2 ML VIAL (J2930) IV SCH (01:00)
[2016-10-16] MEDS: IPRATROPIUM 0.5MG/ALBUTEROL 2.5MG INH SOL UD 3ML (DUONEB)(J7620) NEB SCH ×2 (03:51→07:26)
[2016-10-16 06:00] VITALS: BP 150/66
[2016-10-16] MEDS ORDERED: LevoFLOXacin 500 MG TABLET PO SCH (06:00)
[2016-10-16 06:48] LABS: BASO % 0.1 % (0.0-1.0); EOS % 0.3 % (0.0-3.0); LARGE UNSTAINED CELL # 0.1 K/mm3 (0.0-0.4); LARGE UNSTAINED CELL % 0.9 % (0.0-4.0); LYMPH # 1.8 K/mm3 (1.5-4.5); LYMPH % 13.2 % (24.0-44.0); MEAN CORPUSCULAR HEMOGLOBIN 30.1 pg (27.0-33.0); MEAN CORPUSCULAR HGB CONC 31.9 g/dl (32.0-36.5); MEAN CORPUSCULAR VOLUME 94.2 fl (80.0-96.0); MONO # 0.9 K/mm3 (0.0-0.8); MONO % 6.8 % (0.0-5.0); NEUTROPHILS # 9.9 K/mm3 (1.8-7.7); NEUTROPHILS % 78.6 % (36.0-66.0); PLATELET COUNT, AUTOMATED 334 k/mm3 (150-450); RED CELL DISTRIBUTION WIDTH 13.8 % (11.5-14.5); WHITE BLOOD COUNT 12.5 K/mm3 (4.0-10.0)
[2016-10-16 07:07] LABS: ANION GAP 5 MEQ/L (8-16); BLOOD UREA NITROGEN 31 MG/DL (7-18); CALCIUM LEVEL 8.7 MG/DL (8.8-10.2); CARBON DIOXIDE LEVEL 41 MEQ/L (21-32); CHLORIDE LEVEL 96 MEQ/L (98-107); GLOMERULAR FILTRATION RATE > 60.0 (>45); GLUCOSE, FASTING 176 MG/DL (80-110); MAGNESIUM LEVEL 2.2 MG/DL (1.8-2.4); POTASSIUM SERUM 4.2 MEQ/L (3.5-5.1); SODIUM LEVEL 142 MEQ/L (136-145)
[2016-10-16] MEDS: TIOTROPIUM INHALER/CAPSULE (SPIRIVA) INH SCH (07:26)
[2016-10-16] MEDS: BUDESONIDE 0.5 MG/2 ML INHALATION SUSPENSION INH SCH (07:26)
[2016-10-16] MEDS: HumaLOG INSULIN (NovoLOG) PER UNIT SC SCH (07:30)
[2016-10-16] MEDS ORDERED: PRED10PA PO (07:59)
--- NOTE | 2016-10-16 08:16 | DSES ---
DATE OF ADMISSION: 09/16/2016 DATE OF DISCHARGE: PRIMARY CARE PROVIDER: [facility]. CONSULTANTS: Dr. Ravi. Dr. Schimdt. PROCEDURES: None. COMPLICATIONS: None. ADMISSION/DISCHARGE DIAGNOSES: 1. Acute on chronic hypoxic hypercarbic respiratory failure with suspected underlying pulmonary hypertension. 2. Development of healthcare associated pneumonia. 3. Acute exacerbation of advanced chronic obstructive pulmonary disease (COPD). 4. Chronic diastolic congestive heart failure with grade 1 diastolic dysfunction, compensated. 5. Type 2 diabetes. 6. Acute kidney injury resolved. 7. Anxiety, depression. 8. History of cerebrovascular accident (CVA). 9. Hypertension. 10. Gastroesophageal reflux disease (GERD). BRIEF HOSPITAL COURSE: Ms. Reno is a 71-year-old female who has had a prolonged stay during her hospital care. She presented to the emergency department on 09/16/2016, was a transfer from [facility]. Previously had four or five admissions to either [facility] or [facility] according to the note. Dr. Schmidt was scientist electronics for the admission. Concern was that she has had increasing shortness of breath and was placed on noninvasive ventilation and had continued to have difficulty with shortness of breath and was possibly headed for a endotracheal intubation should her respiratory status worsen. At the time when she was started on non-invasive positive pressure ventilation (NPPV) at [facility], her blood gas had a pH 7.1, pCO2 of 94. There was concern of whether or not she was volume overloaded and she was given a dose of Lasix. When she was evaluated by Dr. Schmidt, she was admitted to the ICU on BiPAP, continued with nebs and started on Zosyn. There was a question of whether or not she had diverticulitis. However, she did not have any further abdominal pain. She did remain a DO NOT RESUSCITATE but has requested a trial of intubation should she need intubated. Additionally, she during her course did develop acute kidney injury and a superimposed healthcare associated pneumonia that she completed antibiotics for, however, she has continued to require some BiPAP support. There was a concern that although she is on chronic home O2 supplementation that she does desaturate through the night and may have an undiagnosed untreated obstructive sleep apnea (SANDY). She did desaturate with nocturnal oximetry however, my concern is that she was not able to be safely discharged long enough to qualify for a home sleep study. We did reach out to the local vendor and a trilogy device was arranged for her so that she could have noninvasive pressure support at home. For today, she does appear to be back to her baseline and arrangements have been made for her to be reinstated with [facility] and a trilogy device with AVAPS mode and she will need close appropriate followup with her primary care provider Dr. Ravi as well as Dr. Schmidt for reevaluation of possible sleep study for home CPAP/BiPAP. PHYSICAL EXAMINATION: Temperature is 97.8, pulse 73, respiratory rate is 14, BP 150/66, SPO2 is 95% on 3 liters. General: The patient appears to be in no acute distress. She is alert, pleasant. HEENT: Unremarkable. Lungs: Clear. Heart: Regular rate and rhythm. Abdomen: Soft. Extremities: No edema or calf tenderness. Discharge condition is good. DISPOSITION: Discharged to home with appropriate support with [facility] and trilogy device. DISCHARGE MEDICATIONS: - Lasix 20 mg daily - Losartan 100 mg daily - Magnesium oxide 400 mg three times daily - Requip 1 mg daily at bedtime for restless leg syndrome - Tylenol 750 mg every 8 hours as needed - albuterol inhaler as directed - albuterol nebulizer as directed - Norvasc 10 mg daily at bedtime - aspirin 81 mg daily - Lipitor 10 mg daily - buspirone 15 mg twice daily - calcium 500 mg every 6 hours as needed indigestion - Coreg 3.125 mg twice daily - vitamin D 1000 units daily - clotrimazole one dose twice daily topically for rash - vitamin B12 1000 mcg daily - Lexapro 10 mg daily - Pulmicort one inhalation daily - glipizide 5 mg daily - Incruse Ellipta 62.5 mcg daily - Metformin 1000 mg twice daily - multivitamin one tablet daily - Zofran ODT 4 mg every 4 hours as needed - pantoprazole 40 mg daily - Zoloft 100 mg daily - spironolactone 50 mg daily - tramadol 50 mg every 6 hours as needed - trazodone 25 mg daily at bedtime as needed sleep - triamcinolone applied three times daily as needed psoriasis lesions - prednisone taper DISCHARGE INSTRUCTIONS: Follow up with primary care provider in a week, digital media designer in 1-2 weeks. Will need outpatient workup for obstructive sleep apnea (SANDY). Follow up with cargo service supervisor within the next 2 weeks and continue with consistent carb diet. Activity as tolerated. Seek out medical attention if symptoms worsen. She voices understanding.
[2016-10-16] MEDS: FUROSEMIDE 20 MG TAB PO SCH (08:51)
[2016-10-16] MEDS: LEVEMIR (INSULIN DETEMIR) 1 UNITS/0.01ML SC SCH (08:51)
[2016-10-16] MEDS: ASPIRIN 81 MG ENTERIC TAB PO SCH (08:51)
[2016-10-16] MEDS: MAGNESIUM OXIDE 400 MG TAB (MAG-OX) PO SCH (08:51)
[2016-10-16 08:52] VITALS: BP 150/66
[2016-10-16] MEDS: SPIRONOLACTONE 25 MG TAB PO SCH (08:52)
[2016-10-16] MEDS: CARVedilol 3.125 MG TAB PO SCH (08:52)
[2016-10-16] MEDS: busPIRone 5 MG TAB PO SCH (08:52)
[2016-10-16] MEDS: OMEPRAZOLE 20 MG CAP PO SCH (08:52)
--- NOTE | 2016-10-21 07:35 | RO ---
DATE OF PROCEDURE: 09/16/2016 PREPROCEDURE DIAGNOSES: Need for vascular access and cardiac monitoring. Acute respiratory failure. POSTPROCEDURE DIAGNOSES: Need for vascular access and cardiac monitoring. Acute respiratory failure. PROCEDURE: Insertion of left subclavian central line. SURGEON: Dr. Hermilo Fountain SHADOW GRAPH WEIGHT OPERATOR: ANESTHESIA: ESTIMATED BLOOD LOSS: The left inferior clavicular fossa was prepped and draped in the usual sterile fashion. The fossa was infiltrated with 1% Xylocaine and the subclavian vein was found. A wire was placed without difficulty and the tract was dilated. A triple lumen catheter was then placed by Seldinger technique. Ports were aspirated and flushed and the catheter was secured to the chest wall with #2-0 silk sutures. Patient tolerated the procedure well and a chest x-ray is pending.
== END 2016-10-16 10:45 | disposition home health service (06) | DRG 682 ==
LOC: M ICU 15:00 → M MS5PR 09-20 11:37
PROVIDERS: ADMIT Internal Medicine Pulmonary Disease; ATTEND Hospitalist
PROC: 05H633Z Insertion of Infusion Device into Left Subclavian Vein, Percutaneous Approach (ICD-10-PCS; principal; 2016-09-16)
DX: N17.9 Acute kidney failure, unspecified (principal); J96.01 Acute respiratory failure with hypoxia; J96.02 Acute respiratory failure with hypercapnia; J18.9 Pneumonia, unspecified organism; E87.4 Mixed disorder of acid-base balance; K57.92 Diverticulitis of intestine, part unspecified, without perforation or abscess without bleeding; J44.1 Chronic obstructive pulmonary disease with (acute) exacerbation; I50.32 Chronic diastolic (congestive) heart failure; I10 Essential (primary) hypertension; Z66 Do not resuscitate; E66.01 Morbid (severe) obesity due to excess calories; F41.9 Anxiety disorder, unspecified; F32.9 Major depressive disorder, single episode, unspecified; E78.5 Hyperlipidemia, unspecified; G47.33 Obstructive sleep apnea (adult) (pediatric); I48.91 Unspecified atrial fibrillation; E83.39 Other disorders of phosphorus metabolism; E55.9 Vitamin D deficiency, unspecified; K21.9 Gastro-esophageal reflux disease without esophagitis; D72.829 Elevated white blood cell count, unspecified; E86.0 Dehydration; D64.9 Anemia, unspecified; E11.9 Type 2 diabetes mellitus without complications; I27.2 Other secondary pulmonary hypertension; M19.90 Unspecified osteoarthritis, unspecified site; R19.7 Diarrhea, unspecified; E87.6 Hypokalemia; E83.42 Hypomagnesemia; I95.9 Hypotension, unspecified; G25.81 Restless legs syndrome; Z99.81 Dependence on supplemental oxygen; Z91.19 Patient's noncompliance with other medical treatment and regimen; Z68.38 Body mass index [BMI] 38.0-38.9, adult; Y95 Nosocomial condition; Z86.73 Personal history of transient ischemic attack (TIA), and cerebral infarction without residual deficits; Z79.891 Long term (current) use of opiate analgesic; Z79.51 Long term (current) use of inhaled steroids; Z79.82 Long term (current) use of aspirin; Z79.899 Other long term (current) drug therapy; Z79.84 Long term (current) use of oral hypoglycemic drugs